=== PATIENT | female | born 1960 | race Caucasian/White ===

== ENCOUNTER 2022-04-05 08:36 | Outpatient (CLI) | payer OTHER, SELFPAY ==
--- NOTE | 2022-04-05 | ECG_ITS ---
Measurements Intervals [place] Rate: 61 P: 35 IA: 144 QRS: -35 QRSD: 104 T: 50 QT: 433 QTc: 436 Interpretive Statements SINUS RHYTHM LEFT AXIS DEVIATION INCOMPLETE RIGHT BUNDLE BRANCH BLOCK BORDERLINE ECG NO PREVIOUS ECG AVAILABLE FOR COMPARISON Electronically Signed On 04-05-2022 14:34:43 CDT by Jeremy Gabriel M.D.
--- NOTE | ~2022-04-05 | CT_ITS ---
EXAMINATION: CT LE RT wo con DATE: 04/05/2022 09:26 INDICATION: Unilateral primary osteoarthritis of the right knee TECHNIQUE: High resolution computed tomography (CT) of the right leg from the hip through the ankle w as performed without intravenous contrast. Additional sagittal and coronal reconstructions were perfo rmed. Automated exposure control and iterative reconstruction technique were employed. The dose-lengt h product was 1565.73 mGy-cm. COMPARISON: Right knee radiographs dated 02/24/2022 FINDINGS: Bone alignment is normal from the hip through the ankle. No fracture. Polyarticular osteoarthritis. T here is mild to moderate joint space narrowing at the medial compartment of the right knee which unde restimates the degree of joint space narrowing as seen on the prior weightbearing radiographs at [facility] h time it appeared moderate to severe likely due to absence weightbearing on the CT images. There is subarticular eburnation and moderate-sized marginal osteophytes at the medial compartment. Small ninoska inal osteophytes at the lateral and patellofemoral compartments. Loose osteochondral body at the inte rcondylar notch along the lateral margin of the anterior weightbearing medial femoral condyle. No rig ht knee joint effusion. Moderate-sized Ramirez's cyst at the right popliteal fossa measuring 6 similar craniocaudally and 2.7 x 1.8 cm maximal transaxial dimensions. Mild osteoarthritis at the right hip, ankle and subtalar joints. Soft tissues are unremarkable. No pathologically enlarged lymphadenopathy at the right groin are visualized right hemipelvis. Small enthesophytes at the calcaneal insertion of the distal Achilles tendon and at the patellar insertion of the distal quadriceps tendon. IMPRESSION: 1. Moderate to severe medial compartment predominant tricompartmental osteoarthritis at the right kne e. 2. Moderate-sized Ramirez's cyst. Reviewed, dictated and finalized at location B. IMPRESSION: 1. Moderate to severe medial compartment predominant tricompartmental osteoarth ritis at the right knee. 2. Moderate-sized Ramirez's cyst.
[2022-04-05 10:44] LABS: Hematocrit 43.3 % (37.0-47.0); Hemoglobin 14.1 g/dL (12.0-15.0)
[2022-04-05 10:56] LABS: Urine Cotinine NEGATIVE
[2022-04-05 11:32] LABS: Albumin Level 4.1 g/dL (3.5-5.1); Estimated Glomerular Filt Rate > 60; Glucose 105 mg/dL (65-110)
[2022-04-05 12:19] LABS: Hemoglobin A1C 5.4 % (<5.7)
== END 2022-04-05 08:37 | disposition home or self-care (01) ==
PROVIDERS: PCP Nurse Practitioner Family; Visit Provider Orthopaedic Surgery
DX: M17.11 Unilateral primary osteoarthritis, right knee (principal); Z01.818 Encounter for other preprocedural examination; M25.461 Effusion, right knee; I45.10 Unspecified right bundle-branch block
CPT/HCPCS: 73700; 80307; 82040; 82565; 82947; 83036; 85014; 85018; 93005

== ENCOUNTER → 2022-07-02 13:18 | Outpatient (CLI) | payer OTHER, SELFPAY ==
--- NOTE | ~2022-07-02 | CT_ITS ---
EXAMINATION: CT abdomen pelvis wo/w con DATE: 07/02/2022 14:06 INDICATION: Microscopic hematuria. TECHNIQUE: Computed tomography (CT) of the abdomen and pelvis was performed without and with intraven ous contrast using a total of 130 mL Omnipaque-350 intravenous contrast with a double-bolus technique for simultaneous opacification of the renal parenchyma and renal collecting system. Automated exposu re control and iterative reconstruction technique were employed. The dose-length product was 2046.40 mGy-cm. COMPARISON: None FINDINGS: The visualized portions of the lung bases demonstrate mild atelectasis. There is a 4 mm nodule in lef t lower lobe, likely benign. No pleural effusion. There is is normal. No pericardial effusion. The li david and spleen are normal. There are gallstones in the gallbladder, which is normal in size. The panc reas, adrenal glands, and kidneys are normal. There is no urolithiasis. The ureters are well opacifie d and are normal. The bladder is normal. There are no dilated loops of bowel. The appendix is normal. There are no pathologically enlarged lymph nodes. There is no free intraperitoneal fluid. There is s evere lumbar spondylosis. IMPRESSION: 1. No etiology for hematuria. Reviewed, dictated and finalized at location A.
[2022-07-02 13:41] LABS: Estimated Glomerular Filt Rate > 60
== END ==
PROVIDERS: PCP Nurse Practitioner Family; Visit Provider Urology
DX: R31.29 Other microscopic hematuria (principal)
CPT/HCPCS: 74178; Q9967

== ENCOUNTER 2022-07-07 11:21 | Outpatient (CLI) | payer OTHER, SELFPAY ==
[2022-07-07 12:56] LABS: Basophils Percent Auto 0.7 % (0.2-1.2); Eosinophils Absolute Auto 0.1 K/mm3 (0-0.3); Eosinophils Percent Auto 1.7 % (0-4.4); Hematocrit 44.8 % (37.0-47.0); Hemoglobin 14.8 g/dL (12.0-15.0); Immature Granulocyte Absolute 0.02 K/mm3 (0.00-0.031); Immature Granulocyte Percent A 0.3 % (0-0.5); Lymphocytes Absolute Auto 2.59 K/mm3 (0.9-3.2); Lymphocytes Percent Auto 44.6 % (18.3-44.2); Mean Corpuscular Hemoglobin 29.6 pg (26-34); Mean Corpuscular Volume 89.6 fl (80-100); Mean Platelet Volume 9.1 fl (7.4-10.4); Monocytes Absolute Auto 0.4 K/mm3 (0.1-0.6); Monocytes Percent Auto 7.6 % (2.6-8.5); Neutrophils Absolute Auto 2.6 K/mm3 (1.3-6.7); Neutrophils Percent Auto 45.1 % (45.5-73.1); Platelet Count Result 247 k/mm3 (150-375); White Blood Count 5.8 K/mm3 (4.5-10.0)
[2022-07-07 13:14] LABS: Urine Cotinine NEGATIVE
[2022-07-07 14:08] LABS: Hemoglobin A1C 5.2 % (<5.7)
[2022-07-07 16:37] LABS: Albumin Level 4.6 g/dL (3.5-5.1); Glucose 98 mg/dL (65-110)
== END 2022-07-07 11:22 | disposition home or self-care (01) ==
LOC: ANHSURGERY 11:26
PROVIDERS: PCP Nurse Practitioner Family; Visit Provider Orthopaedic Surgery
DX: M17.11 Unilateral primary osteoarthritis, right knee (principal); Z01.818 Encounter for other preprocedural examination
CPT/HCPCS: 80307; 82040; 82947; 83036; 85025; 87081

== ENCOUNTER 2022-08-03 01:25 | Day surgery (SDC) | payer OTHER, SELFPAY ==
[2022-07-07 11:53] VITALS: BMI 33.5
--- NOTE | 2022-07-07 12:17 | PC.NURSE ---
Report to the Outpatient Waiting Room, entrance under the green pavilion located off [facility], at time _0600 on date ___08/03/22____. OR Time: ___729 . Time changes happen often and if your time is changed the preop area will call you the afternoon before. - You and your visitor will be asked to self-screen and do not enter if you have any COVID symptoms. - Only one visitor and NO children visitors are allowed at this time. - The patient visitor is requested to leave or wait in car when not with patient due to restrictions. - A mask is required within the hospital. Patients may have clear liquids (water, carbonated beverages, clear teas, apple juice) until 3 hours prior to surgery with a maximum of 20 ounces. - No food from midnight until time of surgery - Infants may have breast milk until 4 hours before surgery, formula 6 hours prior to surgery. - Children will be allowed to drink immediately following surgery. If applicable, please bring a bottle or sippy cup to assist with drinking. Juice, water, soda, and popsicles are readily available. For infants on formula, please bring formula the day of surgery. Pacifiers are allowed. Take the following medications with a SIP of water the morning of surgery: ___INHALERS,LEVOTHYROXINE Medications to discontinue per physician ALL VITAMINS AND SUPPLEMENTS 3 DAYS PRE OP, Date to take last dose___07/30/22 Please no make-up, nail slovak, hairspray, perfume, deodorant, or body powder the day of surgery. No jewelry (including any body piercings) or valuables the day of surgery, leave them at home. Please take a shower or bath the night before, or the morning of, surgery with an antibacterial soap. Wear comfortable, loose fitting clothing. Children are encouraged to wear pajamas. - Jewelry must be removed prior to entering the operating room. Rings and piercings that are not removed may be cut off. - The hospital will not accept responsibility for valuables. - Please leave all valuables, including medications, at home the day of surgery. If you are going home after surgery, a licensed van driver helper must drive you home. - NO public transportation without another adult. - We recommend that an adult stay with you for 24 hours following discharge. - We also recommend that you do not drive, make important decision, drink alcoholic beverages, or take any drugs that were not prescribed by your health care provider for at least 24 hours after your discharge time. For Pediatric surgeries, we recommend two adults accompany the child home (only one inside the building at this time). Follow any additional instructions given to you from your surgeon. If you or anyone in your household have experienced Covid symptoms in the past week, please notify your surgeon or the nurse liaison at the phone number below for possible testing. VERBAL AND WRITTEN instructions given to __PATIENT and asked if any additional questions and then verbalized understanding. Patient advised to call surgeon office or pre surgery nurse liaison [phone] if any additional questions.
[2022-07-07 12:31] VITALS: BP 125/82; PULSE 56; RESP 18; TEMP 36.6; O2SAT 100
--- NOTE | 2022-08-02 13:33 | WPDANESEPPF ---
Anes - Initial Pre Proc Eval Procedure: Operation Date: 08/03/22 07:30 Proposed Procedures p Right Custom Total Knee Arthroplasty - Juan Ortiz MD Date/Time: 08/02/22 13:33 Surgeon: Juan Ortiz MD Pre Op Diagnosis: primary OA right knee Patient Data Age: 61 Gender: F Height: 1.68 m Weight: 94.3 kg Last Vital Signs Temp 36.6 C 07/07/22 12:31 Pulse 56 L 07/07/22 12:31 Resp 18 07/07/22 12:31 BP 125/82 07/07/22 12:31 Pulse Ox 100 07/07/22 12:31 O2 Del Method Room Air 07/07/22 12:31 Allergies Allergy/AdvReac Type Severity Reaction Status Date / Time chocolate flavor Allergy Unknown THROAT Verified 08/03/22 06:22 SWELLING corn Allergy Unknown ABD Verified 08/03/22 06:22 BLOATING grass pollen Allergy Unknown Hives Verified 08/03/22 06:22 mold Allergy Unknown Unknown Verified 08/03/22 06:22 pollen extracts Allergy Unknown unknown Verified 08/03/22 06:22 wheat Allergy Unknown unknown Verified 08/03/22 06:22 Home Medications Medication Instructions Recorded Confirmed Type albuterol sulfate 90 mcg/actuation 1 puff inhalation Q4H PRN 02/02/22 08/03/22 History aerosol inhaler Shortness Of Breath atorvastatin 10 mg tablet 10 mg PO DAILY 02/02/22 08/03/22 History cetirizine 10 mg tablet (Zyrtec) 10 mg PO DAILY 02/02/22 08/03/22 History famotidine 20 mg tablet 20 mg PO DAILY 02/02/22 08/03/22 History fluticasone propionate 50 1 spray intranasal DAILY 02/02/22 08/03/22 History mcg/actuation nasal spray,suspension (Allergy Relief (fluticasone)) levothyroxine 100 mcg capsule 100 mcg PO DAILY 02/02/22 08/03/22 History montelukast 10 mg tablet 10 mg PO DAILY 02/02/22 08/03/22 History omega-3 fatty acids-fish oil 360 1 cap PO DAILY 02/02/22 08/03/22 History mg-1,200 mg capsule (Fish Oil) trazodone 50 mg tablet 25 mg PO QHS PRN Pain 04/19/22 10/18/22 History acetaminophen 500 mg tablet 1,000 mg PO Q6H PRN Pain 07/07/22 08/03/22 History fluticasone 232mcg-salmeterol 1 inh inhalation BID 07/07/22 08/03/22 History 14mcg/actuation breath act,powder sensor (AirDu[employer] Digihaler) glucosam 750 mg-chondroi 100 1 tablet PO DAILY 07/07/22 08/03/22 History mg-hyalur 1.65 mg-CF borate 108 mg tablet ([employer]) soy isoflavone-black cohosh 1 cap PO DAILY 07/07/22 08/03/22 History root-magnolia bark 155 mg capsule ([employer]) tumeric 100 mg-noemi 150 mg-olive 1 cap PO DAILY 07/07/22 08/03/22 History 50 mg-oreg 150 mg-caprylate capsule Patient hx anesthesia problems: post op nausea/vomiting Family hx anesthesia problems: none Results Review: All pre-operative results and documents have been reviewed as part of the pre-operative evaluation. [facility] Past Medical History Medical History (Updated 08/02/22 @ 13:34 by Napoleon Farrar DO) Arthritis of right knee Asthma GERD (gastroesophageal reflux disease) Hyperlipidemia Hypothyroidism PONV (postoperative nausea and vomiting) Surgical History Surgical History History of bunionectomy Right 2009 Left 2021 History of hysterectomy (~1998) History of left knee replacement (~2016) History of lung surgery (~1970) History of thyroid surgery (~2014) Right Family History Family History Mother Lung cancer COPD (chronic obstructive pulmonary disease) Father Hypertension Grandparent Diabetes mellitus Social History Social History Smoking status: Never smoker Additional smoking assessment comments: DENIES ANY FORM OFTOBACCO USE Alcohol intake: never Substance use: never Living arrangements: with family Spiritual care concerns: No Anes - Eval Final PreProcedure Day of Procedure 08/02/22 13:33 Patient weight: obese Heart: regular rate and rhythm Lungs: clear to auscultation
[2022-08-03] VITALS (13 sets, daily range): BP systolic 111–145; BP diastolic 59–72; PULSE 49–79; RESP 14–18; TEMP 36.5–37.6; O2SAT 92–97; BMI 33.5
--- NOTE | ~2022-08-03 | XR_ITS ---
EXAMINATION: XR knee RT 2V DATE: 08/03/2022 10:49 INDICATION: Postoperative evaluation following right knee arthroplasty. TECHNIQUE: Anteroposterior and lateral views of the right knee were obtained. COMPARISON: CT dated 04/05/2022 and radiographs dated 02/24/2022 FINDINGS: Right total knee arthroplasty with patellar resurfacing appears well seated and in near anatomic alig nment. No fractures identified. Expected postoperative subcutaneous and intra-articular gas. IMPRESSION: 1. Right total knee arthroplasty, negative for postoperative purposes. Reviewed, dictated and finalized at location A.
[2022-08-03] MEDS: ACETAMINOPHEN 500 MG TABLET 1000 MG PO (06:27)
[2022-08-03] MEDS: LACTATED RINGERS 1,000 ML 30 ML IV CONT ×2 (06:35→10:40)
[2022-08-03] MEDS: TRANEXAMIC ACID 1,000MG/ISO100 1,000 MG/100 ML BAG 200 MG IVPB (07:00)
--- NOTE | 2022-08-03 07:26 | WPDHPUPDATE1 ---
History and Physical Update Update Date/Time: 08/03/22 07:26 History and Physical has been reviewed, including an updated exam of the patient. There are NO changes in the patient's condition. Risks, benefits, and alternatives have been discussed and questions answered. Patient agrees to proceed with procedure.
[2022-08-03] MEDS: ceFAZolin 2 GM/D5W 50 ML 2 GM/50 ML BAG IVPB ×3 (07:34→23:09)
--- NOTE | 2022-08-03 07:36 | WPDANESPNB ---
Anes - Peripheral Nerve Block Date/Time: 08/03/22 07:36 I have discussed with the patient/family/POA the placement of a peripheral nerve block for post-operative pain management, including associated risks, benefits, complications, and side effects. Alternative methods of post-operative analgesia were detailed. Questions were solicited and answers provided to the satisfaction of the patient/family/POA. Time-Out: A pre-procedural Time-Out was completed immediately before starting the procedure and confirmed: Patient Identification, Site, Procedure, Patient Position and the Availability of Requisite Equipment. Clinical Indications: Acute post-operative pain management requested by the operative surgeon. Nerve Block Insertion Note Anes-nerve block: adductor canal right Patient position: supine Skin prep: chlorhexidine Needle: 22 gauge, stimulating, insulated echogenic needle. Needle length: 80 mm Technique: ultrasound Injectate: bupivacaine 0.5% with epi 5 mcg/ml (30cc - no epi) Observations: tolerated well Complications: none Procedure start time:: 728 Procedure end time:: 731
[2022-08-03] MEDS: GENTAMICIN BONE CEMENT REFOBACIN 1 EACH TOPICAL (09:48)
--- NOTE | 2022-08-03 11:07 | P.OP_ITS ---
Procedure Note - Detailed Date of Procedure 08/03/22 Pre-op Diagnosis primary OA right knee Post-op Diagnosis Same Procedure Performed Total knee arthroplasty, right. Surgeon Juan Ortiz MD Radiator Repairer Beatrice Mukherjee PA-C Anesthesia General and Regional (Subsartorial block.) Findings Custom TKA. No releases required. Description of Procedure Preoperative antibiotics were given. The limb was prepped and draped in the usual sterile fashion with a well-padded tourniquet high on the thigh. The limb was exsanguinated and the tourniquet inflated to 300 mmHg. A longitudinal incision was created just medial to the patella. A trivector approach to the knee was performed. Arthrotomy was taken down through the joint capsule. No significant releases were initially taken. The femur was exposed and the F1 jig was applied. The coring tool was used to remove the cartilage for the F2 jig to sit flush with the bone. The jig was pinned and the distal cut carefully taken. Caliper measurements confirmed appropriate bony resections according to the preoperative templated plan. The F4 cutting jig for the femur was applied, at the standard rotation. The AP and anterior chamfer cuts were taken. The F5 jig was applied and the posterior chamfer cuts were taken. The tibia was prepared using the T1 jig, after removing cartilage for the jig contact points. Proper alignment was checked with the alignment pradeep. The tibia was cut using the T1u guide. Gap balancing was performed. Gap measurements were taken and the knee was trialed. Excellent alignment and soft tissue balancing was confirmed. The posterior cruciate ligament was recessed along the proximal tibia. The patella was cut for resurfacing. Three lug holes were drilled. Meniscal remnants were removed. The trial components were assembled. Excellent range of motion and proper soft tissue balancing were confirmed throughout the full range of motion. Patellar tracking was excellent. The knee was copiously irrigated periodically throughout the procedure. The real implants were cemented into position. Excess cement was carefully removed. The wound was closed in layers with interrupted #1 Vicryl suture, 2-0 strata fix suture, 0 strata fix suture, 2-0 strata fix suture. Steri-Strips placed on the skin with the knee flexed. Sterile bulky dressing applied. The patient was brought to the recovery room in stable condition. There were no complications. Physician veterinary technician assistant, Beatrice Mukherjee PA-C, required for surgery; including patient positioning, draping, tissue retraction, maintaining instrument position, cement removal, wound closure, and dressing placement. Implants Conformis Custom total knee arthroplasty. Cemented. Cruciate retaining. 7C insert. 32 mm round patella. Estimated Blood Loss -100.0 Drains No Complications No immediate complications Condition Stable Disposition PACU [facility] Billing Surgery - Charge Forward: Surgery Billing
[2022-08-03] MEDS: fentaNYL CITRATE INJ (*CRX) 100 MCG/2 ML VIAL 25 MCG IV PUSH (11:18)
[2022-08-03] MEDS: SODIUM CHLORIDE 0.9% IV 1,000 ML 125 ML IV CONT (12:15)
--- NOTE | 2022-08-03 12:35 | ADMGEN ---
This patient, Starr Wahl, was admitted to [facility] Surgery-1. Patient/family oriented to hospital policies and general routines including ID bracelet, bed and alarms, visiting hours, pain management, procedures, bathroom and other care routines, personal items, smoking policy, room service/diet, and visiting hours. Information on how to activate the Rapid Response Team has been discussed. Patient/Family are encouraged to report perceived risks to care and to ask questions if they do not understand what they are told or what they should do.
[2022-08-03] MEDS: ONDANSETRON INJ 4 MG/2 ML VIAL IV PUSH (13:00)
--- NOTE | 2022-08-03 15:25 | ADMGEN ---
This patient, Starr Wahl, was admitted to Medical Room 248-. Patient/family oriented to hospital policies and general routines including ID bracelet, bed and alarms, visiting hours, pain management, procedures, bathroom and other care routines, personal items, smoking policy, room service/diet, and visiting hours. Information on how to activate the Rapid Response Team has been discussed. Patient/Family are encouraged to report perceived risks to care and to ask questions if they do not understand what they are told or what they should do.
[2022-08-03] MEDS: ASPIRIN 81 MG ENTERIC TABLET PO (16:34)
[2022-08-03] MEDS: SENNA/DOCUSATE SODIUM TABLET 2 TAB PO (16:34)
[2022-08-03] MEDS: FLUTICASONE/SALMETEROL 230-21 MCG INHALER 1 PUFF 2 PUFF INHALATION (21:37)
[2022-08-04 00:08] VITALS: BP 109/56; PULSE 52; RESP 18; TEMP 36.1; O2SAT 98
[2022-08-04 05:20] VITALS: BP 108/61; PULSE 52; RESP 18; TEMP 35.9; O2SAT 95
[2022-08-04] MEDS: LEVOTHYROXINE SODIUM 100 MCG TABLET PO (05:21)
[2022-08-04] MEDS: ceFAZolin 2 GM/D5W 50 ML 2 GM/50 ML BAG IVPB (05:21)
[2022-08-04 05:28] VITALS: BP 108/61; PULSE 52; RESP 18; TEMP 35.9; O2SAT 95
[2022-08-04 05:46] LABS: Basophils Percent Auto 0.2 % (0.2-1.2); Eosinophils Absolute Auto 0.1 K/mm3 (0-0.3); Eosinophils Percent Auto 0.5 % (0-4.4); Hemoglobin 12.2 g/dL (12.0-15.0); Immature Granulocyte Absolute 0.06 K/mm3 (0.00-0.031); Immature Granulocyte Percent A 0.6 % (0-0.5); Lymphocytes Absolute Auto 2.31 K/mm3 (0.9-3.2); Mean Corpuscular HGB Conc 33.9 g/dl (32-36); Mean Corpuscular Hemoglobin 30.4 pg (26-34); Mean Corpuscular Volume 89.8 fl (80-100); Mean Platelet Volume 9.2 fl (7.4-10.4); Monocytes Absolute Auto 0.9 K/mm3 (0.1-0.6); Monocytes Percent Auto 8.4 % (2.6-8.5); Neutrophils Absolute Auto 7.2 K/mm3 (1.3-6.7); Neutrophils Percent Auto 68.3 % (45.5-73.1); Platelet Count Result 211 k/mm3 (150-375); Red Blood Count 4.01 M/mm3 (4.2-5.4); Red Cell Distribution Width 13.1 % (11.5-14.5); White Blood Count 10.5 K/mm3 (4.5-10.0)
[2022-08-04 06:06] LABS: Anion Gap 8 mmol/L (8-16); Blood Urea Nitrogen 16 mg/dL (7-17); Calcium 8.4 mg/dL (8.4-10.2); Carbon Dioxide 25 mmol/L (22-30); Chloride 102 mmol/L (98-107); Estimated CRCL calculation 76 ml/min; Estimated Glomerular Filt Rate > 60; Glucose 117 mg/dL (65-110); Potassium 3.8 mmol/L (3.4-5.0); Sodium 135 mmol/L (137-145)
--- NOTE | 2022-08-04 07:53 | WPDANESPN ---
Anes - Prog Note Post-Op Date/Time: 08/04/22 07:53 Cardiovascular status: normal Respiratory status: normal Airway patency: baseline Mental status: baseline Post-Op hydration status: normal Vital Signs: Last Vital Signs Temp 35.9 C L 08/04/22 05:28 Pulse 52 L 08/04/22 05:28 Resp 18 08/04/22 05:28 BP 108/61 08/04/22 05:28 Pulse Ox 95 08/04/22 05:28 O2 Del Method Room Air 08/03/22 20:00 O2 Flow Rate 2 08/03/22 11:30 Pain Score (VAS): 12/24 I/O: Intake & Output 08/03/22 08/03/22 08/04/22 15:59 23:59 07:59 Intake Total 550 1300 440 Output Total 200 800 600 Balance 350 500 -160 Laboratory Tests 08/04/22 05:00 08/04/22 05:00 08/03/22 08/04/22 08/04/22 06:39 05:00 05:00 WBC 10.5 H RBC 4.01 L Hgb 12.2 Hct 36.0 L MCV 89.8 MCH 30.4 MCHC 33.9 RDW 13.1 Plt Count 211 MPV 9.2 Immature Gran % (Auto) 0.6 H Neut % (Auto) 68.3 Lymph % (Auto) 22.0 [place] % (Auto) 8.4 Eos % (Auto) 0.5 Baso % (Auto) 0.2 Lymph # (Auto) 2.31 [place] # (Auto) 0.9 H Eos # (Auto) 0.1 Baso # (Auto) 0.0 Abs Immat Gran (auto) 0.06 H Absolute Neuts (auto) 7.2 H Absolute Nucleated RBC 0.0 Nucleated RBC % 0.0 Sodium 135 L Potassium 3.8 Chloride 102 Carbon Dioxide 25 Anion Gap 8 BUN 16 Creatinine 0.80 Estim Creat Clear Calc 76 Estimated GFR > 60 Glucose 117 H Calcium 8.4 Blood Type B Positive Antibody Screen Positive Antibody Identification Inconclusive Antigen Identification Not Reportable SUNNY, IgG Interpret Not Performed SUNNY, Poly Interpret Negative SUNNY, Complement Interp Not Performed Post-procedural complaints: nausea (Which was treated in PACU, no compliants of nausea this morning) Patient Feedback: Patient satisfied with anesthetic care.
--- NOTE | 2022-08-04 08:12 | PM.DS ---
DS: Admitting Diagnosis Discharge Date 08/04/22 Admitting Diagnosis OA knee Right DS: Discharge Diagnosis Discharge Diagnosis (1) Status post total right knee replacement: Code(s): Z96.651 - Presence of right artificial knee joint Status: Acute Plan Postop day 1: Right total knee arthroplasty. Patient tolerated procedure well. No complications. Pain manageable with pain medication. No numbness or tingling. We had a lengthy discussion regarding postoperative wound care, limitations, expectations, and exercises. Patient shows good understanding. She has had initial physical therapy and is tolerating it well. DVT prophylaxis: 81 mg baby aspirin b.i.d. for 14 days. Pain medication: Percocet. Prednisone. Ibuprofen. Patient has followup appointment with Dr. Ortiz in 3 weeks. DS: Summary Hospital Course Reason for hospitalization: Total knee arthroplasty Hospital Course: Patient tolerated procedure well. Has had initial PT/OT. No complications. Pain well managed. Status at Discharge Functional status at discharge: uses cane/walker Overall status at discharge: patient is progressing back to baseline Time Spent with Patient Time attestation: Total time spent providing and/or coordinating discharge services: Exam Narrative: Overweight 61 y/o female. Resting comfortably in chair. No acute distress. A&O x3. Wearing compression socks bilaterally. Dressing intact with no drainage. No swelling. No ecchymosis. No erythema. No hematoma. Good early range of motion. Calf nontender. Neurologic status intact. No varicosities. Distal pulses palpable. DS: Data Data Completed and Pending Labs on day of discharge: Labs from last 24 hours 08/04/22 08/04/22 08/03/22 05:00 05:00 06:39 WBC 10.5 H RBC 4.01 L Hgb 12.2 Hct 36.0 L MCV 89.8 MCH 30.4 MCHC 33.9 RDW 13.1 Plt Count 211 MPV 9.2 Immature Gran % (Auto) 0.6 H Neut % (Auto) 68.3 Lymph % (Auto) 22.0 [place] % (Auto) 8.4 Eos % (Auto) 0.5 Baso % (Auto) 0.2 Lymph # (Auto) 2.31 [place] # (Auto) 0.9 H Eos # (Auto) 0.1 Baso # (Auto) 0.0 Abs Immat Gran (auto) 0.06 H Absolute Neuts (auto) 7.2 H Absolute Nucleated RBC 0.0 Nucleated RBC % 0.0 Sodium 135 L Potassium 3.8 Chloride 102 Carbon Dioxide 25 Anion Gap 8 BUN 16 Creatinine 0.80 Estim Creat Clear Calc 76 Estimated GFR > 60 Glucose 117 H Calcium 8.4 Blood Type B Positive Antibody Screen Positive Antibody Identification Inconclusive Antigen Identification Not Reportable SUNNY, IgG Interpret Not Performed SUNNY, Poly Interpret Negative SUNNY, Complement Interp Not Performed Discharge Plan Discharge Patient Disposition: Home, Self-Care Discharge Instructions: See green instruction sheets Stand Alone Forms: General Discharge Instructions Follow-up/Referrals: Beatrice Mukherjee PA [Physician Disassembler] - Discharge Medications: New aspirin 81 mg tablet,delayed release (DR/EC) 81 mg PO BID 14 Days Qty: 28 0RF prednisone 5 mg tablet 5 mg PO DAILY 21 Days Qty: 21 0RF oxycodone-acetaminophen 5-325 mg tablet 1 - 2 tablet PO Q4-6H MDD 6 PRN (Reason: pain) Qty: 30 0RF Continued atorvastatin 10 mg tablet 10 mg PO DAILY albuterol sulfate 90 mcg/actuation HFA aerosol inhaler 1 puff inhalation Q4H PRN (Reason: Shortness Of Breath) cetirizine [Zyrtec] 10 mg tablet 10 mg PO DAILY montelukast 10 mg tablet 10 mg PO DAILY omega-3 fatty acids-fish oil [Fish Oil] 360-1,200 mg capsule 1 cap PO DAILY famotidine 20 mg tablet 20 mg PO DAILY levothyroxine 100 mcg capsule 100 mcg PO DAILY fluticasone propionate [Allergy Relief (fluticasone)] 50 mcg/actuation spray,suspension 1 spray intranasal DAILY Rx Instructions: administer into each nostril trazodone 50 mg tablet 25 mg PO QHS
[2022-08-04] MEDS: FAMOTIDINE 20 MG TABLET PO (08:45)
[2022-08-04] MEDS: MONTELUKAST SODIUM 10 MG TABLET PO (08:45)
[2022-08-04] MEDS: predniSONE 5 MG TABLET PO (08:45)
[2022-08-04] MEDS: LORATADINE 10 MG TABLET PO (08:45)
[2022-08-04] MEDS: polyethylene glycoL 3350 17 GM POWD.PACK PO (08:45)
[2022-08-04] MEDS: ATORVASTATIN 10 MG TABLET PO (08:45)
[2022-08-04] MEDS: ASPIRIN 81 MG ENTERIC TABLET PO (08:45)
[2022-08-04] MEDS: SENNA/DOCUSATE SODIUM TABLET 2 TAB PO (08:45)
[2022-08-04] MEDS: FLUTICASONE/SALMETEROL 230-21 MCG INHALER 1 PUFF 2 PUFF INHALATION (09:18)
== END 2022-08-04 10:10 | disposition home or self-care (01) ==
LOC: ANHSURGERY 09:32 → ANHSUROVER 11:45 → ANH2MED 15:13
PROVIDERS: Physician Assistant Surgical; PCP Nurse Practitioner Family; Visit Provider Orthopaedic Surgery
PROC: (CPT 27447; principal; 2022-08-03 07:30)
DX: M17.11 Unilateral primary osteoarthritis, right knee (principal); G89.18 Other acute postprocedural pain; E78.5 Hyperlipidemia, unspecified; J45.909 Unspecified asthma, uncomplicated; E03.9 Hypothyroidism, unspecified; Z79.51 Long term (current) use of inhaled steroids; E66.9 Obesity, unspecified; Z68.33 Body mass index [BMI] 33.0-33.9, adult
CPT/HCPCS: 27447; 64447; 36415; 73560; 80048; 80307; 82040; 82947; 83036; 85025; 86850; 86880; 86900; 86901; 86902; 87081; 94640; 97110; 97116; 97161; 97165; 97530; 97535; A9270; C1713; C1776; J0131; J0171; J0330; J0690; J1100; J1885; J2250; J2270; J2405; J2704; J2795; J3010; J7030; J7120; J7512

== ENCOUNTER → 2022-09-29 14:43 | Outpatient (CLI) | payer OTHER, SELFPAY ==
--- NOTE | ~2022-09-29 | XR_ITS ---
Left thumb Technique: PA, oblique, and lateral views of the thumb were obtained. Clinical History: Pain Findings: No acute fracture or dislocation is seen. Osseous alignment is anatomic. Joint spaces are p reserved. Soft tissues are unremarkable. Impression: No significant abnormality seen. 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
== END ==
PROVIDERS: PCP Family Medicine; Visit Provider Nurse Practitioner Family
DX: M79.645 Pain in left finger(s) (principal)
CPT/HCPCS: 73140

== ENCOUNTER 2022-10-28 10:24 | Emergency (ER) | payer BC, SELFPAY ==
--- NOTE | ~2022-10-28 | XR_ITS ---
EXAMINATION: XR chest 2V DATE: 10/28/2022 11:00 INDICATION: Cough. TECHNIQUE: Frontal and lateral views of the chest were obtained. COMPARISON: CT abdomen and pelvis 07/02/2022 FINDINGS: There are airspace opacities in the perihilar regions. No pleural effusion or pneumothorax. The heart size is normal. IMPRESSION: 1. Airspace opacities in the perihilar regions, consistent with atelectasis versus pneumonia versus m ild pulmonary edema. Reviewed, dictated and finalized at location A. F MECHANIC IMPRESSION: 1. Airspace opacities in the perihilar regions, consistent with atelectasis david fred pneumonia versus mild pulmonary edema.
[2022-10-28 10:35] VITALS: BP 135/81; PULSE 82; RESP 16; TEMP 36.5; O2SAT 99
--- NOTE | 2022-10-28 10:40 | ED.URI ---
HPI - URI/Sore Throat General Chief Complaint: Upper Respiratory Infection Stated Complaint: Cough Time Seen by Provider: 10/28/22 10:40 Source: patient, RN notes reviewed and old records reviewed Mode of arrival: ambulatory Limitations: no limitations History of Present Illness HPI Narrative: 62-year-old female presents to the [facility] with a cough for for 5 days. Was told to come to the [facility] for a COVID and flu test. Told her that they would not see year if she was positive. Has a history of pneumonia. Denies any chest pain or shortness of breath. Denies fevers. Related Data Home Medications Medication Instructions Recorded Confirmed albuterol sulfate 90 mcg/actuation 1 puff inhalation Q4H PRN 02/02/22 10/28/22 aerosol inhaler Shortness Of Breath atorvastatin 10 mg tablet 10 mg PO DAILY 02/02/22 10/28/22 cetirizine 10 mg tablet (Zyrtec) 10 mg PO DAILY 02/02/22 10/28/22 fluticasone propionate 50 1 spray intranasal DAILY 02/02/22 10/28/22 mcg/actuation nasal spray,suspension (Allergy Relief (fluticasone)) levothyroxine 100 mcg capsule 100 mcg PO DAILY 02/02/22 10/28/22 montelukast 10 mg tablet 10 mg PO DAILY 02/02/22 10/28/22 trazodone 50 mg tablet 25 mg PO QHS PRN Pain 02/02/22 10/28/22 glucosam 750 mg-chondroi 100 1 tablet PO DAILY 07/07/22 10/28/22 mg-hyalur 1.65 mg-CF borate 108 mg tablet ([facility]) soy isoflavone-black cohosh 1 cap PO DAILY 07/07/22 10/28/22 root-magnolia bark 155 mg capsule ([facility]) Allergies Allergy/AdvReac Type Severity Reaction Status Date / Time chocolate flavor Allergy Unknown THROAT Verified 10/28/22 10:47 SWELLING corn Allergy Unknown ABD Verified 10/28/22 10:47 BLOATING grass pollen Allergy Unknown Hives Verified 10/28/22 10:47 mold Allergy Unknown Unknown Verified 10/28/22 10:47 pollen extracts Allergy Unknown unknown Verified 10/28/22 10:47 wheat Allergy Unknown unknown Verified 10/28/22 10:47 Review of Systems Review of Systems: All systems reviewed & are unremarkable except as noted in HPI and below Constitutional: Constitutional: Reports no additional constitutional complaints Eyes: Eyes: Reports no additional eye complaints ENT: Reports system reviewed and no additional complaints, except as documented Cardiovascular: Cardiovascular: Reports no additional cardiovascular complaints, Denies chest pain and Denies dyspnea Respiratory: Respiratory: Reports as per HPI, Denies chest congestion, Reports cough, Denies dyspnea and Denies wheezing Gastrointestinal: Gastrointestinal: Reports no additional gastrointestinal complaints, Denies abdominal pain, Denies nausea and Denies vomiting Musculoskeletal: Musculoskeletal: Reports no additional musculoskeletal complaints Integumentary/Breasts: Skin/Breast: Reports system reviewed and no additional complaints, except as docu Neurologic: Reports system reviewed and no additional complaints, except as documented Psychiatric: Psychiatric: Reports no additional psychiatric complaints Allergic/Immunologic: Allergic/Immunologic: Reports no additional allergic/immunologic complaints PMFSH Past Medical History Medical History Anemia Arthritis of right knee Asthma Elevated fasting glucose Encounter to establish care GERD (gastroesophageal reflux disease) Hyperlipidemia Hyperlipidemia Hypothyroidism Pain of left thumb PONV (postoperative nausea and vomiting) Surgical History Surgical History History of bunionectomy Right 2009 Left 2021 History of hysterectomy (~1998) History of left knee replacement (~2016) History of lung surgery (~1970) History of right knee joint replacement (~08/03/22) History of thyroid surgery (~2014) Right Family History Family History Mother Lung cancer COPD (chronic obstructiv
== END 2022-10-28 11:40 | disposition home or self-care (01) ==
PROVIDERS: Emergency Provider Nurse Practitioner; PCP Family Medicine
DX: J18.9 Pneumonia, unspecified organism (principal); J45.909 Unspecified asthma, uncomplicated; K21.9 Gastro-esophageal reflux disease without esophagitis; E78.5 Hyperlipidemia, unspecified; E03.9 Hypothyroidism, unspecified; Z20.822 Contact with and (suspected) exposure to COVID-19
CPT/HCPCS: 71046; 87426; 87804; 99213; C9803; G0463

== ENCOUNTER 2023-07-28 08:22 | Emergency (ER) | payer BC, SELFPAY ==
[2023-07-28 08:30] VITALS: BP 119/73; PULSE 74; RESP 12; TEMP 36.9; O2SAT 97
--- NOTE | 2023-07-28 08:51 | ED.URI ---
HPI - URI/Sore Throat General Chief Complaint: Upper Respiratory Infection Stated Complaint: sore throat,sores in mouth Time Seen by Provider: 07/28/23 08:42 Source: patient and RN notes reviewed Mode of arrival: ambulatory Limitations: no limitations History of Present Illness HPI Narrative: Patient presents today with a 4 day history of cough, congestion, headache, and throat sores. She also reports some mild shortness of breath with exertion. She has been taking Tylenol for her headaches with mild relief. Currently rates her pain 2/10. She also reports some strep throat exposure from 1 of her grandchildren prior to onset of symptoms. History of asthma. Related Data Home Medications Medication Instructions Recorded Confirmed albuterol sulfate 90 mcg/actuation 1 puff inhalation Q4H PRN 02/02/22 07/28/23 aerosol inhaler Shortness Of Breath atorvastatin 10 mg tablet 10 mg PO DAILY 02/02/22 07/28/23 cetirizine 10 mg tablet (Zyrtec) 10 mg PO DAILY 02/02/22 07/28/23 fluticasone propionate 50 1 spray intranasal DAILY 02/02/22 07/28/23 mcg/actuation nasal spray,suspension (Allergy Relief (fluticasone)) trazodone 50 mg tablet 25 mg PO QHS PRN Pain 02/02/22 07/28/23 glucosam 750 mg-chondroi 100 1 tablet PO DAILY 07/07/22 07/28/23 mg-hyalur 1.65 mg-CF borate 108 mg tablet ([facility] [employer]) soy isoflavone-black cohosh 1 cap PO DAILY 07/07/22 07/28/23 root-magnolia bark 155 mg capsule (Estroven) fluticasone propionate 44 2 inh inhalation BID 04/01/23 07/28/23 mcg/actuation HFA aerosol inhaler (Flovent HFA) Allergies Allergy/AdvReac Type Severity Reaction Status Date / Time chocolate flavor Allergy Unknown THROAT Verified 07/28/23 08:29 SWELLING corn Allergy Unknown ABD Verified 07/28/23 08:29 BLOATING grass pollen Allergy Unknown Hives Verified 07/28/23 08:29 mold Allergy Unknown Unknown Verified 07/28/23 08:29 pollen extracts Allergy Unknown unknown Verified 07/28/23 08:29 wheat Allergy Unknown unknown Verified 07/28/23 08:29 Review of Systems Review of Systems: CONSTITUTIONAL: Denies body aches, fever, chills, or sweats. EYES: Denies visual changes, redness, or discharge. ENT: Denies rhinorrhea, or otalgia.+ mouth sores, congestion CARDIOVASCULAR: Denies chest pain, palpitations, or edema. RESPIRATORY: + cough, shortness of breath GASTROINTESTINAL: Denies abdominal pain, nausea, vomiting, or diarrhea. GENITOURINARY: Denies dysuria or hematuria. SKIN: Denies rash, itching, or wounds. MUSCULOSKELETAL: Denies back pain, joint pain, or myalgia. NEUROLOGIC: Denies numbness, tingling, or weakness.+ headache PSYCH: Denies depression or anxiety. [facility] Past Medical History Medical History Anemia Arthritis of right knee Asthma BMI 34.0-34.9,adult Breast cancer screening by mammogram normal mammogram 05/02/2023. Elevated fasting glucose Encounter to establish care GERD (gastroesophageal reflux disease) Hyperlipidemia Hyperlipidemia Hypothyroidism Pain of left thumb PONV (postoperative nausea and vomiting) Surgical History Surgical History History of bunionectomy Right 2009 Left 2021 History of hysterectomy (~1998) History of left knee replacement (~2016) History of lung surgery (~1970) History of right knee joint replacement (~08/03/22) History of thyroid surgery (~2014) Right Family History Family History Mother Lung cancer COPD (chronic obstructive pulmonary disease) Father Hypertension Grandparent Diabetes mellitus Son Asthma Other Diabetes mellitus Social History Social History Smoking status: Never smoker Additional smoking assessment comments: DENIES ANY FORM OFTOBACCO USE Alcohol intake: current
== END 2023-07-28 09:11 | disposition home or self-care (01) ==
PROVIDERS: Emergency Provider Nurse Practitioner; PCP Nurse Practitioner Family
DX: J02.0 Streptococcal pharyngitis (principal); D64.9 Anemia, unspecified; M17.11 Unilateral primary osteoarthritis, right knee; J45.909 Unspecified asthma, uncomplicated; K21.9 Gastro-esophageal reflux disease without esophagitis; E78.5 Hyperlipidemia, unspecified; E03.9 Hypothyroidism, unspecified; Z96.653 Presence of artificial knee joint, bilateral
CPT/HCPCS: 87880; 99213; G0463

== ENCOUNTER 2023-09-05 12:26 | Emergency (ER) | payer BC, SELFPAY ==
--- NOTE | 2023-09-05 12:30 | ED.URI ---
HPI - URI/Sore Throat General Chief Complaint: Upper Respiratory Infection Stated Complaint: Cough Time Seen by Provider: 09/05/23 12:55 Source: patient and RN notes reviewed Mode of arrival: ambulatory Limitations: no limitations History of Present Illness HPI Narrative: 63-year-old female presents with concern for cough, fatigue. Reports symptoms started on Tuesday. Reports she has run her grandchildren who were ill. Reports she has been taking dwwp-ezn-siqchsy cold medicine without relief. MD elicited complaint: cough Related Data Home Medications Medication Instructions Recorded Confirmed albuterol sulfate 90 mcg/actuation 1 puff inhalation Q4H PRN 02/02/22 08/03/23 aerosol inhaler Shortness Of Breath atorvastatin 10 mg tablet 10 mg PO DAILY 02/02/22 08/03/23 cetirizine 10 mg tablet (Zyrtec) 10 mg PO DAILY 02/02/22 08/03/23 fluticasone propionate 50 1 spray intranasal DAILY 02/02/22 08/03/23 mcg/actuation nasal spray,suspension (Allergy Relief (fluticasone)) trazodone 50 mg tablet 25 mg PO QHS PRN Pain 02/02/22 08/03/23 glucosam 750 mg-chondroi 100 1 tablet PO DAILY 07/07/22 08/03/23 mg-hyalur 1.65 mg-CF borate 108 mg tablet ([employer]) soy isoflavone-black cohosh 1 cap PO DAILY 07/07/22 08/03/23 root-magnolia bark 155 mg capsule (Estroven) fluticasone propionate 44 2 inh inhalation BID 04/01/23 08/03/23 mcg/actuation HFA aerosol inhaler (Flovent HFA) Allergies Allergy/AdvReac Type Severity Reaction Status Date / Time chocolate flavor Allergy Unknown THROAT Verified 09/05/23 12:36 SWELLING corn Allergy Unknown ABD Verified 09/05/23 12:36 BLOATING grass pollen Allergy Unknown Hives Verified 09/05/23 12:36 mold Allergy Unknown Unknown Verified 09/05/23 12:36 pollen extracts Allergy Unknown unknown Verified 09/05/23 12:36 wheat Allergy Unknown unknown Verified 09/05/23 12:36 Review of Systems Review of Systems: CONSTITUTIONAL: Reports malaise, fatigue EYES: Denies visual changes, redness, or discharge. ENT: Reports rhinorrhea, congestion. Denies sinus pain, otalgia and sore throat. CARDIOVASCULAR: Denies chest pain, palpitations, or edema. RESPIRATORY: Reports cough. Denies dyspnea. GASTROINTESTINAL: Denies abdominal pain, nausea, vomiting, diarrhea SKIN: Denies rash or itching. MUSCULOSKELETAL: Reports myalgia. NEUROLOGIC: Denies headache. All systems reviewed & are unremarkable except as noted in HPI and below PMFSH Past Medical History Medical History Anemia Arthritis of right knee Asthma BMI 34.0-34.9,adult Breast cancer screening by mammogram normal mammogram 05/02/2023. Elevated fasting glucose Encounter to establish care GERD (gastroesophageal reflux disease) Hyperlipidemia Hyperlipidemia Hypothyroidism Pain of left thumb PONV (postoperative nausea and vomiting) Surgical History Surgical History History of bunionectomy Right 2009 Left 2021 History of hysterectomy (~1998) History of left knee replacement (~2016) History of lung surgery (~1969) History of right knee joint replacement (~08/03/22) History of thyroid surgery (~2014) Right Family History Family History Mother Lung cancer COPD (chronic obstructive pulmonary disease) Father Hypertension Grandparent Diabetes mellitus Son Asthma Other Diabetes mellitus Social History Social History Smoking status: Never smoker Additional smoking assessment comments: DENIES ANY FORM OFTOBACCO USE Alcohol intake: current Drinks per week: 1 Substance use: never Lack of Transportation: No Lack of Food: Never True Current Housing: I Have Housing Concerned About Future Housing: No Difficulty Paying Gas/Electric Bills: No Difficulty Paying for Meds: No
[2023-09-05 12:40] VITALS: BP 104/67; PULSE 81; RESP 18; TEMP 37.2; O2SAT 97
== END 2023-09-05 13:05 | disposition home or self-care (01) ==
PROVIDERS: Emergency Provider Nurse Practitioner; PCP Family Medicine
DX: U07.1 COVID-19 (principal); E78.5 Hyperlipidemia, unspecified; E03.9 Hypothyroidism, unspecified
CPT/HCPCS: 87426; 99213; C9803; G0463

== ENCOUNTER 2024-10-15 12:24 | Outpatient (CLI) | payer BC, SELFPAY ==
--- NOTE | ~2024-10-15 | MM_ITS ---
EXAMINATION: MM screening primo BI w nehemias HISTORY: Screening mammogram TECHNIQUE: Craniocaudal and mediolateral oblique 3-D tomosynthesis images were obtained and synthetic 2-D images were generated. CAD analysis was submitted and interpreted. COMPARISON: No prior mammogram is available for comparison at this institution. BREAST PARENCHYMAL COMPOSITION:Not Dense. The breasts are almost entirely fatty FINDINGS: No suspicious mass, calcification, or architectural distortion are identified in either agnieszka ast to suggest malignancy. IMPRESSION: No mammographic evidence of malignancy. Recommend routine screening mammography in one year. BI-RADS Category 1: Negative Reviewed, dictated and finalized at location . RESSURIST
== END 2024-10-15 12:25 | disposition home or self-care (01) ==
LOC: MICIMG 12:25
PROVIDERS: PCP Family Medicine; Visit Provider Nurse Practitioner Family
DX: Z12.31 Encounter for screening mammogram for malignant neoplasm of breast (principal)
CPT/HCPCS: 77063; 77067

== ENCOUNTER → 2024-11-22 14:26 | Outpatient (CLI) | payer BC, SELFPAY ==
--- NOTE | ~2024-11-22 | XR_ITS ---
EXAMINATION: XR chest 2V DATE: 11/22/2024 14:55 INDICATION: Cough. TECHNIQUE: Frontal and lateral views of the chest were obtained. COMPARISON: Chest 2 views 10/28/2022, CT abdomen and pelvis 07/02/2022 FINDINGS: There is mild atelectasis in left midlung zone. There is chronic blunting of right lateral costophrenic angle. No pleural effusion or pneumothorax. The heart size is normal. There are old heal ed right rib fractures. IMPRESSION: 1. Mild atelectasis in left midlung zone. Reviewed, dictated and finalized at location A. TS MEDICINE PHYSICIAN
== END ==
LOC: EXPCRAD 14:28
PROVIDERS: PCP Nurse Practitioner Family; Visit Provider Nurse Practitioner Family
DX: J98.11 Atelectasis (principal)
CPT/HCPCS: 71046

== ENCOUNTER 2025-07-10 12:10 | Outpatient (CLI) | payer BC, SELFPAY ==
--- OUTSIDE RECORDS SUMMARY | 2024-09-29 16:30 | XMS_ITS ---
Author Organization [facility] Address [address] [facility] [address] [place], [place] [id number] Care Team Providers Care Broom Worker Name Role Phone Ella Streeter Primary Care Provider U Desmond Christine Unavailable [phone] Migration, Provider Unavailable Unavailable Allergies Allergen (clinical drug ingredient) Drug/Non Drug Allergy documented on EMR Reaction Allergy Type Onset Date Status VICODINE (uncoded) Unknown Allergy A ctive [facility]AS[facility] FOR VISIT [facility] Encounter Medications Medication SIG (Take, Route, Frequency, Duration) Notes Start Date End Date Status Lysine *Please review a nd pick correct strength-formulatio n from Medispan options. If intended option is not shown, discontinue and re-order from Quick Search* Active VALTREX 1 GM *Please review f or potential replacement for e-prescription and drug interaction check* Active ESTROVEN *Please review f or potential replacement for e-prescription and drug interaction check* Active PriLOSEC *Please review a nd pick correct strength-formulatio n from Medispan options. If intended option is not shown, discontinue and re-order from Quick Search* Active Levothyroxine Sodium 100 MCG Tablet 1 tab(s) orally once a day; Duration: 30 day(s) 07/08/2014 Active Niacin *Please review a nd pick correct strength-formulatio n from Medispan options. If intended option is not shown, discontinue and re-order from Quick Search* Active ZyrTEC *Please review a nd pick correct strength-formulatio n from Medispan options. If intended option is not shown, discontinue and re-order from Quick Search* Active Multivitamin *Please review a nd pick correct strength-formulatio n from Medispan options. If intended option is not shown, discontinue and re-order from Quick Search* Active Aciphex *Please review a nd pick correct strength-formulatio n from Medispan options. If intended option is not shown, discontinue and re-order from Quick Search* Active Singulair *Please review a nd pick correct strength-formulatio n from Medispan options. If intended option is not shown, discontinue and re-order from Quick Search* Active Flonase Allergy Relief *Please review and pick correct strength-formulatio n from Medispan options. If intended option is not shown, discontinue and re-order from Quick Search* Active Magnesium *Please review a nd pick correct strength-formulatio n from Medispan options. If intended option is not shown, discontinue and re-order from Quick Search* Active Encounters Encounter Location Date Provider Diagnosis [facility] [place] [address] [address] [phone] 09/29/2024 Provider Migration Thyroid nodule 241.0 Assessments Encounter Date Diagnosis (ICD Code) Assessment Notes Treatment Notes Treatment Clinical Notes Section Notes 09/29/2024 Thyroid nodule (ICD9-CM - 241.0) Plan Of Treatment Medication Medication Name Sig Start Date Stop Date Notes Levothyroxine Sodium 100 MCG Tablet 1 tab(s) orally once a day; Duration: 30 day(s) 07/08/2014 Progress Notes * [facility]arr [facility] SDOB:1960 (64 yo F)Acc No.[id number]:09/29/2024 Patient: Prieto sureshStarr mcghee Provider: Maryjane lopez Migration :1960 A ge:64 Y S ex:Female Date:09/29/2024 [facility] Pcp:Ella Streeter Subjective: * Chief Complaints: * M ultum To Medispan Conversion Encounter * Medications: T akingESTROVEN , Notes to Pharmacist: *Please review for potential replacement for e-prescription and drug interaction check*Lysine , Notes to Pharmacist: *Please review and pick correct strength-formulation from Medispan options. If intended option is not shown, discontinue and re-order from Quick Search*VALTREX 1 GM , Notes to Pharmacist: *Please review for potential replacement for e-prescription and drug interaction check*Flonase Allergy Relief , Notes to Pharmacist: *Please review and pick correct strength-formulation from Medispan options. If intended option is not shown, discontinue and re-order from Quick Search*Magnesium , Notes to Pharmacist: *Please review and pick correct strength-formulation from Medispan options. If intended option is not shown, discontinue and re-order from Quick Search*Aciphex , Notes to Pharmacist: *Please review and pick correct strength-formulation from Medispan options. If intended option is not shown, discontinue and re-order from Quick Search*Singulair , Notes to Pharmacist: *Please review and pick correct strength-formulation from Medispan options. If intended option is not shown, discontinue and re-order from Quick Search*ZyrTEC , Notes to Pharmacist: *Please review and pick correct strength-formulation from Medispan options. If intended option is not shown, discontinue and re-order from Quick Search*Multivitamin , Notes to Pharmacist: *Please review and pick correct strength-formulation from Medispan options. If intended option is not shown, discontinue and re-order from Quick Search*Niacin , Notes to Pharmacist: *Please review and pick correct strength-formulation from Medispan options. If intended option is not shown, discontinue and re-order from Quick Search*PriLOSEC , Notes to Pharmacist: *Please review and pick correct strength-formulation from Medispan options. If intended option is not shown, discontinue and re-order from Quick Search*Taking ESTROVEN , Notes to Pharmacist: *Please review for potential replacement for e-prescription and drug interaction check*Taking Lysine , Notes to Pharmacist: *Please review and pick correct strength-formulation from Medispan options. If intended option is not shown, discontinue and re-order from Quick Search*Taking VALTREX 1 GM , Notes to Pharmacist: *Please review for potential replacement for e-prescription and drug interaction check*Taking Flonase Allergy Relief , Notes to Pharmacist: *Please review and pick correct strength-formulation from Medispan options. If intended option is not shown, discontinue and re-order from Quick Search*Taking Magnesium , Notes to Pharmacist: *Please review and pick correct strength-formulation from Medispan options. If intended option is not shown, discontinue and re-order from Quick Search*Taking Aciphex , Notes to Pharmacist: *Please review and pick correct strength- formulation from Medispan options. If intended option is not shown, discontinue and re-order from Quick Search*Taking Singulair , Notes to Pharmacist: *Please review and pick correct strength-formulation from Medispan options. If intended option is not shown, discontinue and re-order from Quick Search*Taking ZyrTEC , Notes to Pharmacist: *Please review and pick correct strength-formulation from Medispan options. If intended option is not shown, discontinue and re-order from Quick Search*Taking Multivitamin , Notes to Pharmacist: *Please review and pick correct strength-formulation from Medispan options. If intended option is not shown, discontinue and re-order from Quick Search*Taking Niacin , Notes to Pharmacist: *Please review and pick correct strength-formulation from Medispan options. If intended option is not shown, discontinue and re-order from Quick Search*Taking PriLOSEC , Notes to Pharmacist: *Please review and pick correct strength- formulation from Medispan options. If intended option is not shown, discontinue and re-order from Quick Search* * Allergies: V ICODINE Assessment: * Assessment: 1. T hyroid nodule - 241.0 (Primary) Plan: * Treatment: * Electronic signature of Prov quintonr Migration on 07/10/2025 at 12:35 PM CDT Sign off status: Pending * Provider: Maryjane lopez Migration Date: 11/30/2023 Generated for Gold yadav/Edita/Ilda on: 0 07/10/2025 12:35 PM CDT
--- OUTSIDE RECORDS SUMMARY | 2025-07-10 12:35 | XMS_ITS | Encounter Summary ---
Author Organization [facility] Address [address] [place] [address] Phone Care Team Providers Care Rn Neonatal Icu Name Role Phone Nadir Graham APRN, JAS Primary Care Provider Reason for Referral * Radiology Services (Routine) - Closed Specialty Diagnoses / Procedures Referred By Contac t Referred To Contact Radiology Diagnoses Pre-op testing Procedures EKG 12 LEAD Benigno Aceves APRN, CRNA #[address] [place] [address] Phone: tel: fax: Referral ID Status Reason Start Date Expiration Date Visits Re quested Visits Authorized [id number] Closed 11/06/2021 1 1 H DEVELOPMENT SPECIALIST Encounter Details Date Type Department Care Team (Late st Contact Info) Description 11/06/2021 Transcribe Orders [facility] Preop/Pacu II [address] [place] [address] Benigno Aceves APRN, PASCALE #[address] [place] [address] Pre-op testing (Primary Dx) Social History Tobacco Use Types Packs/Day Years Used Date Smoking Tobacco: Never Smokeless Tobacco: Never Alcohol Use Standard Drinks/Week Comments Never 0 (1 standard drink = 0.6 oz pur e alcohol) Comments Unknown Sex and Gender Information Value Date Recorded Sex Assigned at Not on file Legal Sex Female 10:16 PM CDT Gender Identity Not on file Sexual Orientation Not on file COVID-19 Exposure Response Date Recorded In the last month, have you been in contact with someone who was confirmed or suspected to have Coronavirus / COVID-19? No / Unsure 11/09/2021 10:29 AM YOUTH DEVELOPMENT SPECIALIST documented as of this encounter Plan of Treatment Not on file documented as of this encounter Results * EKG 12 LEAD (11/09/2021 11:00 AM YOUTH DEVELOPMENT SPECIALIST) Ventricular Rate BPM EXTERNAL EKG Atrial Rate BPM EXTERNAL EKG P-R Interval 148 ms EXTERNAL EKG QRS Duration 98 ms EXTERNAL EKG Q-T Duration 404 ms EXTERNAL EKG QTC CALCULATION 430 ms EXTERNAL EKG P Violet 69 degrees EXTERNAL EKG R Violet -48 degrees EXTERNAL EKG T Violet 64 degrees EXTERNAL EKG 11/09/2021 11:0 0 AM YOUTH DEVELOPMENT SPECIALIST Impressions EXTERNAL EKG - 11/10/2021 9:44 AM YOUTH DEVELOPMENT SPECIALIST Sinus rhythm Left anterior fascicular block rSr'(V1) - probable normal variant Comparison Summary: No serial comparison made Summary: Borderline ECG Confirmed by Sangeetha Moreau [id number] on 11/10/2021 9:44:17 AM Narrative Procedure Note Deborah Vivas MD - 11/10/2021 IMPRESSION: Sinus rhythm Left anterior fascicular block rSr'(V1) - probable normal variant Comparison Summary: No serial comparison made Summary: Borderline ECG Confirmed by Sangeetha Moreau [id number] on 11/10/2021 9:44:17 AM us Benigno Clevelandatzke MANAGER HEART FAILURE, TECHNICAL ILLUSTRATIONS MAP INKER IMG ECG ORDERABLES Final Result EXTERNAL EKG * SARS-COV-2 BY MOLECULAR (11/09/2021 10:43 AM YOUTH DEVELOPMENT SPECIALIST) SARSCOV2 NOT DETECTED (Referen ce Range for this test is Not Detected ) [facility] THERMOFISHER FAST DX 11/10/2021 8:06 AM YOUTH DEVELOPMENT SPECIALIST [facility] Comment:This test was perfor med by a RT-PCR method. Other NASAL STRUCTURE / Unknown Non-Phlebotomy Collection / Unknown 11/09/2021 10:43 AM YOUTH DEVELOPMENT SPECIALIST 11/09/2021 11:09 AM YOUTH DEVELOPMENT SPECIALIST Narrative [facility] - 11/10/2021 8:06 AM YOUTH DEVELOPMENT SPECIALIST Authorized Fact Sheets about this test for providers and patients are available at: https://www.fda.gov/medical-devices/wtyiitanw-kaksbrezeb-mqfpuxy-devices/emergen -us e-authorizations Benigno Aceves APRN, CRNA MICROBIOLOGY - GEN ERAL ORDERABLES Final Result Performing Organization Address City/[facility]/ZIP Co de Phone Number [facility] [address] [place] [address], * HEMOGLOBIN & HEMATOCRIT (H&H) (11/09/2021 10:43 AM YOUTH DEVELOPMENT SPECIALIST) HEMOGLOBIN (HGB) 14.2 12.0 - 15.8 g/dL 11/09/2021 11:12 AM YOUTH DEVELOPMENT SPECIALIST [facility] HEMATOCRIT (HCT) 43.0 36.0 - 47.0 % 11/09/2021 11:12 AM YOUTH DEVELOPMENT SPECIALIST [facility] Blood Venipuncture / Unknown 11/09/2021 10:43 AM YOUTH DEVELOPMENT SPECIALIST 11/09/2021 11:09 AM YOUTH DEVELOPMENT SPECIALIST Benigno Aceves APRN, CRNA HEMATOLOGY ORDERAB LES Final Result [facility] [address] [place] [address] documented in this encounter Visit Diagnoses Diagnosis Pre-op testing- Primary Preoperative examination, unspecified Pre-op testing Preoperative examination, unspecified documented in this encounter Care Teams Rn Neonatal Icu Relationship Specialty Start Date End Date Nadir Graham, ARNULFO, CONTEMPORARY OR MODERN DANCER [address] [place] [address] [place] [address] PCP - General Certified Nurse Practitioner 11/09/21 documented as of this encounter
--- OUTSIDE RECORDS SUMMARY | 2025-07-10 12:35 | XMS_ITS | Encounter Summary ---
Author Organization [facility] Address [address] [place] [address] Care Team Providers Care Insole Taper Name Role Phone Unavailable Primary Care Provider Unavailabl e Encounter Details Date Type Department Care Team (Late st Contact Info) Description 10/30/2024 Lab Requisition [facility] - DermPath Lab [address] [facility], [place] [phone] Ivanna Klein MD [address] [facility] [address] [place] [address] Social History Tobacco Use Types Packs/Day Years Used Date Smoking Tobacco: Never Comments Unknown Sex and Gender Information Value Date Recorded Sex Assigned at Not on file Legal Sex Female 1:54 PM STOVE TENDER Gender Identity Not on file Sexual Orientation Not on file documented as of this encounter Plan of Treatment Not on file documented as of this encounter Procedures Procedure Name Priority Date/Time Associated Diagnosis Comments DERMATOPATHOLOGY Routine 10/30/2024 11:2 2 AM STOVE TENDER documented in this encounter Results * DERMATOPATHOLOGY (10/30/2024 11:22 AM STOVE TENDER) Case Report Dermatopathology Report Case: [id number] Authorizing Provider: Ivanna Klein MD Collected: 10/30/2024 11:22 AM Ordering Location: [facility] - Received: 10/31/2024 01:55 PM DermPath Lab Pathologist: Serenity Vinson MD Specimen: Skin, right ala 5 4:13 PM [facility] DERMATOPATHOLOGY LABORATORY Final Diagnosis Specimen A. SKIN, right ala: INTRADERMAL MELANOCYTIC NEVUS (D22.39) 5 4:13 PM [facility] DERMATOPATHOLOGY LABORATORY at [address]13 STOVE TENDER Clinical History R/O Nevus vs FP vs BCC 4:13 PM [facility] DERMATOPATHOLOGY LABORATORY Gross Description Specimen A: Received is one formalin filled container labeled with the patient's name and designated right ala. The specimen consists of a shave biopsy measuring 2 pieces 3x3x1,2x2x1 mm. Jar 0. 4:13 PM [facility] DERMATOPATHOLOGY LABORATORY Microscopic Description Specimen A. SKIN, right ala: There are nests of cytologically bland melanocytes within the dermis that mature with depth. 4:13 PM [facility] DERMATOPATHOLOGY LABORATORY Disclaimer An external and internal positive and negative controls are appropriate for the histochemical, immunohistochemical and immunofluorescence stain(s) in this case (if any), except where stated explicitly. The performance characteristics of the stain(s) cited in this report were developed and its performance characteristic determined by the Dermatopathology Laboratory at [facility], directed by Dr. Shruti Schilling. These tests need not be, and therefore are not, approved by the [place] Food and Drug Administration. The tests are used for clinical purposes. Billing Codes Specimen Charges Stain Charges 61848 1 4:13 PM STOVE TENDER DERMATOPATHOLOGY LABORATORY Embedded Images 4:13 PM [facility] DERMATOPATHOLOGY LABORATORY Pathology/Cytolo gy TISSUE SPECIMEN FROM SKIN / Unknown 10/30/2024 11:22 AM STOVE TENDER 10/31/2024 1:55 PM STOVE TENDER us Ivanna Klein MD LAB - PATHOLOGY/CYTOLOGY ORD ERABLES Final Result DERMATOPATHOLOGY LABORATORY [facility] - Department of Dermatology [address] [place] [address], [place] [phone] documented in this encounter Visit Diagnoses Not on filedocumented in this encounter
--- OUTSIDE RECORDS SUMMARY | 2025-07-10 12:35 | XMS_ITS | Encounter Summary ---
Author Organization [facility] Address [address] [facility] [place] [address] Care Team Providers Care Pantograph Machine Operator Name Role Phone Unavailable Primary Care Provider Unavailabl e Encounter Details Date Type Department Care Team (Late st Contact Info) Description 09/22/2023 Lab Requisition [facility] - DermPath Lab [address] [facility] [place] [phone] Ivanna Klein MD [address] [facility] [address] [place] [address] Social History Tobacco Use Types Packs/Day Years Used Date Smoking Tobacco: Never Comments Unknown Sex and Gender Information Value Date Recorded Sex Assigned at Not on file Legal Sex Female 1:54 PM CNA HHA Gender Identity Not on file Sexual Orientation Not on file documented as of this encounter Plan of Treatment Not on file documented as of this encounter Procedures Procedure Name Priority Date/Time Associated Diagnosis Comments DERMATOPATHOLOGY Routine 09/22/2023 9:34 AM CNA HHA documented in this encounter Results * DERMATOPATHOLOGY (09/22/2023 9:34 AM CNA HHA) Case Report Dermatopathology Report Case: [id number] Authorizing Provider: Ivanna Klein MD Collected: 09/22/2023 09:34 AM Ordering Location: [facility] DermPath Lab Received: 09/23/2023 09:51 AM Pathologist: Frances Shay MD Specimen: Skin, left inner eyelid margin 3 1:19 PM [facility] DERMATOPATHOLOGY LABORATORY Final Diagnosis Specimen A. 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 The specimen consists of a shave biopsy measuring 2x2x1 mm. Jar 0. 1:19 PM [facility] DERMATOPATHOLOGY LABORATORY Microscopic Description Specimen A. SKIN, left inner eyelid margin: Within the dermis, there is a space lined by one to several layers of typical epithelial cells that resemble the lining of the normal sweat duct. Additional deeper sections were obtained and reviewed. 1:19 PM [facility] DERMATOPATHOLOGY LABORATORY Disclaimer An external and internal positive and negative controls are appropriate for the histochemical, immunohistochemical and immunofluorescence stain(s) in this case (if any), except where stated explicitly. The performance characteristics of the stain(s) cited in this report were developed and its performance characteristic determined by the Dermatopathology Laboratory at [facility], directed by Dr. Shruti Schilling. These tests need not be, and therefore are not, approved by the [place] Food and Drug Administration. The tests are used for clinical purposes. Billing Codes Specimen Charges Stain Charges 97817 1 3 1:19 PM [facility] DERMATOPATHOLOGY LABORATORY Embedded Images 3 1:19 PM [facility] DERMATOPATHOLOGY LABORATORY Pathology/Cytolo gy TISSUE SPECIMEN FROM SKIN / Unknown 09/22/2023 9:34 AM CNA HHA 09/23/2023 9:51 AM [facility] us Ivanna Klein MD LAB - PATHOLOGY/CYTOLOGY ORD ERABLES Final Result DERMATOPATHOLOGY LABORATORY [facility] - Department of Dermatology [address], [address] [phone] documented in this encounter Visit Diagnoses Not on filedocumented in this encounter
--- OUTSIDE RECORDS SUMMARY | 2025-07-10 12:35 | XMS_ITS | Patient Health Record ---
Author Organization [facility] [place] Address [address] [place], [place] [address] Care Team Providers Care Redevelopment Manager Name Role Phone Ella Streeter Primary Care Provider U Desmond Christine Unavailable [phone] Migration, Provider Unavailable Unavailable Allergies Allergen (clinical drug ingredient) Drug/Non Drug Allergy documented on EMR Reaction Allergy Type Onset Date Status VICODINE (uncoded) Unknown Allergy A ctive Reason For Referral No Information Medications Medication SIG (Take, Route, Frequency, Duration) [...] for e-prescription and drug interaction check* Active Niacin *Please review a nd pick correct strength-formulatio n from Medispan options. If intended option is not shown, discontinue and re-order from Quick Search* Active PriLOSEC *Please review a nd pick correct strength-formulatio n from Medispan options. If intended option is not shown, discontinue and re-order from Quick Search* Active Levothyroxine Sodium 100 MCG Tablet 1 tab(s) orally once a day; Duration: 30 day(s) 07/08/2014 Active ZyrTEC *Please review a nd pick [...] discontinue and re-order from Quick Search* Active Social History Social History Additional Details Category Social Info Options Details Social History Occupation Yes Recreational drug use No Smokeless Tobacco No Passive smoke exp: No Problems Problem Type SNOMED Code ICD Code Onset Dates Problem Status W/U Status Risk Notes Problem Non-toxic multinodular goiter (97094309) Multinodular goiter, nontoxic (241.1) Active confirmed Problem Dysphonia (disorder) (28801588) 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 Problem Laryngeal spasm (475458549) Laryngeal spasm (478.75) Active confirmed Encounters Encounter Location Date Provider Diagnosis [facility] [place] [address] [facility] [address] [place], [place] [phone] 09/29/2024 Provider Migration Thyroid nodule 241.0 Assessments Encounter Date Diagnosis (ICD Code) Assessment Notes Treatment Notes Treatment Clinical Notes Section Notes 09/29/2024 Thyroid nodule (ICD9-CM - 241.0) Plan Of Treatment No Information Insurance Providers Payer Name Payer Address Payer Phone Subscriber Number Group Number Insured Name Patient Relationship to Insured Coverage Start Date Coverage End Date [facility] Insurance [facility] [address] [place] [phone] [id number] Moisés Wahl Spouse - patient is the spouse of the insured Medical (General) History Medical History History ICD Code Pertinent Medical History: V ision changes, History of Allergies, Nose problems, Throat/Neck problems, Asthma, Thyroid problems Surgical History Surgery Date(Month/Year) bunion sx hysterectomy tubes tied lung exploratory (when pt was 10) r thyroidlobectomy 06/25/14-[facility] Hospitalization History Reason Date(Month/Year) hysterectomy
--- OUTSIDE RECORDS SUMMARY | 2025-07-10 12:35 | XMS_ITS | Clinical Summary ---
Author Organization [facility] Address [address] [place] [address] Phone Care Team Providers Care Trade Show Coordinator Name Role Phone Nadir Graham APRN, TRACKLESS TROLLEY DRIVER Primary Care Provider Allergies Active Allergy Reactions Criticality Noted Date Comments Chocolate Anaphylaxis High 11/06/2021 [place] (Rigo Rinaldi) Allergy Skin Test Anaphylaxis,Hives,Swelling High 11/06/2021 Hydrocodone Hives,Hallucinations High 11/06/2021 Triticum Aestivum (Whole Wheat) Allergy Skin Test Swelling Medium 11/06/2021 Medications atorvastatin (LIPITOR) 10 MG Tablet Take 10 mg by mouth every morning. Active Mobile-3 Fatty Acids (fish oil) 1200 MG Capsule Take 1,200 mg by mouth daily. STOP TAKING 3 DAYS BEFORE SURGERY Active Kuaoip-Bcweo-Na al Ac-Ca Fructo (Move Free Counts Include [address] [facility] Advance) Tablet Take by mouth every morning. STOP TAKING 3 DAYS PRIOR TO SURGERY Active levothyroxine (SYNTHROID) 100 MCG Tablet Take 100 mcg by mouth every morning. Active montelukast (SINGULAIR) 10 MG Tablet Take 10 mg by mouth every evening. Active famotidine (PEPCID) 20 MG Tablet Take 20 mg by mouth every evening. Active Cetirizine HCl (ZYRTEC PO) Take 1 Tablet by mouth daily. Active Rhubarb (ESTROVEN MENOPAUSE RELIEF PO) Take 1 Capsule by mouth daily. Active L-Lysine 1000 MG Tablet Take 1 Tablet by mouth daily. Active MAGNESIUM PO Take 400 mg by mouth daily. Active Phentermine HCl 37.5 MG Tablet Take 37.5 mg by mouth every morning (before breakfast). Active Fluticasone Propionate (FLONASE NA) by Nasal route daily. Active Active Problems No known active problems Resolved Problems Problem Noted Date Diagnosed Date Resolved Date Bunion of great toe of left foot 11/11/2021 11/11/2021 Family History Medical History Relation Name Comments Chronic Obstructive Pulmonary Disease Father Hypertension Father Osteoarthritis Father Cancer Mother LUNG Chronic Obstructive Pulmonary Disease Mother Heart Attack Mother Relation Name Status Comments Father Mother Social History Tobacco Use Types Packs/Day Years Used Date Smoking Tobacco: Never Smokeless Tobacco: Never Alcohol Use Standard Drinks/Week Comments Never 0 (1 standard drink = 0.6 oz pur e alcohol) Comments Unknown Sex and Gender Information Value Date Recorded Sex Assigned at Not on file Legal Sex Female 10:16 PM CDT Gender Identity Not on file Sexual Orientation Not on file Last Filed Vital Signs Vital Sign Reading Time Taken Comments Blood Pressure 125/69 11/11/2021 9:55 AM JACQUARD LOOM WEAVER Pulse 59 11/11/2021 9:55 AM JACQUARD LOOM WEAVER Temperature 35.5 C (95.9 F) 11/11/2021 9:55 AM JACQUARD LOOM WEAVER Respiratory Rate 16 11/11/2021 9:55 AM JACQUARD LOOM WEAVER Oxygen Saturation 96% 11/11/2021 9:55 AM JACQUARD LOOM WEAVER Inhaled Oxygen Concentration - - Weight 88.9 kg (196 lb) 11/11/2021 6:08 AM JACQUARD LOOM WEAVER Height 167.6 cm (5' 6) 11/11/2021 6:08 AM JACQUARD LOOM WEAVER Body Mass Index 31.64 11/11/2021 6:08 AM JACQUARD LOOM WEAVER Plan of Treatment Health Maintenance Due Date Last Done Comments Hepatitis C Virus (HCV) Screening 1962 Cologuard 2007 Colonoscopy 2007 Colorectal Cancer Screening 2007 Immunochemical Fecal Occult Blood 2007 Zoster Immunization (1 of 2) 2012 Pneumococcal Immunization (50+ years) (2 of 2 - PCV20 or PCV21) 05/23/2021 05/23/2020 Influenza Immunization (#1) 06/17/202507/17, 07/05/2020, 07/30/2019, Additional history exists SARS-COV-2 Immunization ( season) 2025 08/16/2021, 01/07/2021, 12/16/2020 Respiratory Syncytial Virus (RSV) Immunization (Adult) (1 - 1-dose 75+ series) 2037 Meningococcal Immunization (ACWY) Aged Out 10/01/2003 No longer eligible based on patient's age to complete this topic Hepatitis B Immunization Completed 004, 11/05/2003, 10/01/2003 DTaP/Tdap/Td Immunization Discontinued 04/16/2019, TdaP Immunization Completed 04/16/2019, 06/04/2015 Pneumococcal Immunization Combined Discontinued 05/23/2020 Human Papillomavirus (HPV) Immunization Aged Out No longer eligible based on patient's age to complete this topic Rotavirus Immunization Aged Out No lo nger eligible based on patient's age to complete this topic Medical Devices Implanted Type Area Ap Processor Device Identifier Shelf Expiration Date Model / Serial / Lot Easyclip Staple [id number] - [id number] Implanted:Qty: 1 on 11/11/2021 by Magdi Salas, DPM at [facility] IMPLANT Left: Toe Ling Orthopedic 08/16/2026 [id number] / [id number] / [id number] Screw Bone 3mm 20mm 5mm Asnis Ti Micro Rvrs Cut Flute Foot Hand Self Cut Viraj Clr Cd Loprfl Head Ns - [id number] Implanted:Qty: 1 on 11/11/2021 by Magdi Salas, DPM at [facility] IMPLANT Left: Toe LING [id number] / [id number] / [id number] Insurance [employer] Care Teams Trade Show Coordinator Relationship Specialty Start Date End Date Nadir Graham, SOCIAL MEDIA SENIOR ASSOCIATE, TRACKLESS TROLLEY DRIVER [address] [place] [address] PCP - General Certified Nurse Practitioner 11/09/21
--- OUTSIDE RECORDS SUMMARY | 2025-07-10 12:35 | XMS_ITS | Clinical Summary ---
Author Organization [facility] Address [address] [place] [address] Care Team Providers Care Charge Nurse Name Role Phone Unavailable Primary Care Provider Unavailabl e Source Comments [facility],non-owned Affiliates and Associated Physician Practices is amultiple site organization consisting of ambulatory clinics and hospital sitesin [place], [place], [place] and [place]. This disclosure is being madepursuant to the Care Everywhere program and may not contain all information available regarding this patient. Last updated 18.[facility] Allergies No known active allergies Medications * Be aware that medications may not be up to date on this document. Alwaysverify current medications with the patient. Montelukast Sodium (SINGULAIR PO) Activ e RANITIDINE HCL PO Active OXYBUTYNIN CHLORIDE PO Active predniSONE (DELTASONE) 20 MG tablet 3 TABLETS ONCE DAILY FOR 3 DAYS, THEN 2 TABLETS ONCE DAILY FOR 3 DAYS, THEN 1 TABLET ONCE DAILY FOR 4 DAYS. 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 Gender Identity Not on file Sexual Orientation Not on file Last Filed Vital Signs Vital Sign Reading Time Taken Comments Blood Pressure 114/70 03/10/2018 9:36 AM CDT Pulse 66 03/10/2018 9:36 AM CDT Temperature 36.8 C (98.3 F) 03/10/2018 9:36 AM CDT Respiratory Rate - - Oxygen Saturation - - Inhaled Oxygen Concentration - - Weight 90.7 kg (200 lb) 03/10/2018 9:36 AM CDT Height 167.6 cm (5' 6) 03/10/2018 9:36 AM CDT Body Mass Index 32.28 03/10/2018 9:36 AM CDT Plan of Treatment Health Maintenance Due Date Last Done Comments COLOGUARD (AGES 45-75) - COL ON CA SCREENING 1962 COLON MONITORING 1962 COLONOSCOPY - COLON CA SCREENING 1962 CT COLONOGRAPHY - COLON CA SCREENING 1962 Colorectal Cancer Screening 1962 FIT - COLON CA SCREENING 1962 FLEX SIG - COLON CA SCREENING 1962 LIPID TESTING 1962 MAMMOGRAM 1962 HIV SCREENING 1977 HEPATITIS C SCREENING 08/10/1980 DTAP/TDAP/TD VACCINES (1 - Tdap) 1981 PNEUMOCOCCAL VACCINE 50+ (1 of 1 - PCV) 2012 ZOSTER VACCINE (1 of 2) 2012 SCREENING FOR DIABETES 03/10/2018 DEPRESSION SCREENING 10/17/2024 COVID-19 VACCINE (1 - 2023-2 5 season) 2025 INFLUENZA VACCINE (#1) 2025 Respiratory Syncytial Virus (RSV) Vaccine Pt: or over 60 yrs (1 - 1-dose 75+ series) 2037 HEPATITIS B VACCINE Aged Out No longe r eligible based on patient's age to complete this topic HIB VACCINE Aged Out No longer eligi ble based on patient's age to complete this topic HPV VACCINE Aged Out No longer eligi ble based on patient's age to complete this topic MENINGOCOCCAL (Group B) VACC INE SHARED DECISION-MAKING Aged Out No longer eligibl e based on patient's age to complete this topic MENINGOCOCCAL GROUPS A/C/Y/W VACCINE Aged Out No longer eligible b ased on patient's age to complete this topic Insurance [facility] Address: [facility] [id number] [place] [phone]
--- OUTSIDE RECORDS SUMMARY | 2025-07-10 12:35 | XMS_ITS | Clinical Summary ---
Author Organization [facility] Address [address] [place] [address] Care Team Providers Care Hand Laster Name Role Phone Nadir Graham NP Primary Care Provider [phone] Allergies Active Allergy Reactions Criticality Noted Date Comments Acetaminophen Chocolate Anaphylaxis High 11/06/2021 [place] Pollen Extract Anaphylaxis,Hives,Swelling High 11/06/2021 Hydrocodone Hallucinations,Hives High 11/06/2021 Hydrocodone Hcl Itching Low 05/28/2021 Other Swelling,Unknown Medium 07/01/2014 Medications magnesium oxide (MAG-OX) 415 mg (250 mg elemental) tablet 250 mg. 0 01/26/20 13 Active fluticasone (FLONASE) 50 mcg/actuation nasal spray spray 1 spray by intranasal route every day in each nostril 0 01/26/20 13 Active O85-dstgbwbwwjxy calcium-B6 (FOLTX) 2-1.13-25 mg tablet 0 01/26/20 13 Active cholecalciferol (VITAMIN D3) 400 unit capsule 0 01/26/20 13 Active cetirizine (ZyrTEC) 10 mg capsule 10 mg. 0 01/26/20 13 Active montelukast (SINGULAIR) 10 mg tablet take 1 tablet (10MG) by oral route every day in the evening 0 01/26/20 13 Active phytosterol combination no.1 (CHOLEST CARE) 500 mg capsule 500 mg. 0 01/26/20 13 Active levothyroxine (SYNTHROID, LEVOTHROID) 100 mcg tablet 03/03/20 17 Active empty container bottle Administer into affected nostril(s). Active oxymetazoline (oxymetazoline) 0.05 % nasal spray Administer into each nostril. Active clindamycin (CLEOCIN) 300 mg capsule Take 2 capsules PO 1 hour prior to dental work. 2 capsule 3 04/24/20 20 Active albuterol HFA (PROVENTIL HFA,VENTOLIN HFA,PROAIR HFA) 90 mcg/actuation inhaler Ventolin HFA 90 mcg/actuation aerosol inhaler INHALE 2 PUFFS BY MOUTH EVERY 4 HOURS NEEDED Active atorvastatin (LIPITOR) 10 mg tablet daily Active famotidine (PEPCID) 20 mg tablet famotidine 20 mg tablet TAKE 1 TABLET BY MOUTH TWICE A DAY Active influenza quadrivalent [id number] (Flucelvax Quad ) 60 mcg (15 mcg x 4)/0.5 mL suspension Flucelvax Quad 60 mcg (15 mcg x 4)/0.5 mL intramuscular susp ADM 0.5ML IM UTD Active soy isofla/blk cohosh/mag bark (ESTROVEN ORAL) [place] Acti ve traMADoL (ULTRAM) 50 mg tablet Take 1-2 tablets every 6 hours as needed for pain. 40 tablet 02/20/20 21 Active promethazine-DM (PROMETHAZINE-DM ) 1.25-3 mg/mL syrup TAKE 5ML BY MOUTH EVERY 4 HOURS NEEDED 04/01/20 21 Active phentermine (ADIPEX-P) 37.5 mg tablet 0 07/10/[address] (ACIPHEX) 20 mg EC tablet Active potassium &magnesium aspartate (MAGNESIUM, POTASSIUM ASPARTATE ORAL) Take 400 mg by mouth daily Active multivit with minerals/lutein (MULTIVITAMIN 50 PLUS ORAL) Active oxybutynin chloride, bulk, powder Take by mouth Active omeprazole magnesium (PRILOSEC ORAL) Acti ve valACYclovir (VALTREX) 1 gram tablet Active cephalexin (KEFLEX) 500 mg capsule TAKE 1 CAPSULE BY MOUTH THREE TIMES A DAY FOR 7 DAYS 11/11/19 22 Active lysine 1,000 mg tablet Take 1 tablet by mouth daily Active sulfamethoxazole -trimethoprim (BACTRIM DS) 800-160 mg per tablet Take 1 tablet by mouth 2 (two) times a day 11/23/19 22 Active Active Problems Problem Noted Date Diagnosed Date Blood in urine 05/23/2020 Chronic bronchitis 05/23/2020 Heartburn 05/23/2020 Menopausal syndrome 05/23/2020 Seasonal allergies 05/23/2020 Urinary incontinence 05/23/2020 Hyperlipidemia 06/14/2019 Presence of total knee joint prosthesis, left Goiter 04/27/2013 Allergic rhinitis 02/26/2013 Asthma 02/26/2013 Immunizations Immunization Administration Dates Next Due Influenza, Quadrivalent, Spl it, Preservative Free, Intramuscular 08/18/2017 Pfizer SARS-CoV-2 Monovalent Vaccination (12+ Yrs) PURPLE 08/16/2021,01/07/2021,12/16/2020 Surgical History Surgery Date Site/Laterality Comments OTHER SURGICAL HISTORY tubal ligation 1989 LUNG SURGERY lung surgery BUNIONECTOMY bunion surgery OTHER SURGICAL HISTORY 10/17/2012 - 10/16/2013 left knee pain: XRays, Tramadol given HYSTERECTOMY 10/17/1998 - 10/16/1999 Hysterectomy Medical History Medical History Date Comments Disorder of thyroid Thyroid dise ase Asthma Asthma Hx Other Medical left knee pain; Comments: had X-Rays taken...no fx. given Tramadol 50mg #40 take 1-2 every 6 hours, no refills.... as well as crutches. told to call her regular doctor or orthopedic office.; Outcome: failed Family History Medical History Relation Name Comments Breast cancer Mother's Sister age 69 Heart disease Other 1 Family history of Heart disease; Hypertension Other 2 Family history of Hypertension; Lung disease Other 3 Family history of lung problems; Ovarian cancer Neg Hx Thyroid cancer Neg Hx Relation Name Status Comments Mother's Sister age 69 Other 1 Other 2 Other 3 Social History Tobacco Use Types Packs/Day Years Used Date Smoking Tobacco: Never Smokeless Tobacco: Never Alcohol Use Standard Drinks/Week Comments Yes 0 (1 standard drink = 0.6 oz pur e alcohol) Comments No Sex and Gender Information Value Date Recorded Sex Assigned at Not on file Legal Sex Female 5:11 PM COLOR MAKING SUPERVISOR Gender Identity Not on file Sexual Orientation Straight 08/28/2020 10 :49 PM COLOR MAKING SUPERVISOR Obstetrics History Para Term AB IAB SAB Ectopic Multiple Livin g Live Births 2 2 2 Date Outcome GA Total Labor Labor/2nd/3rd Weight Sex Type Anes PTL Kacie A1 A5 Name Clin Term Term Last Filed Vital Signs Vital Sign Reading Time Taken Comments Blood Pressure 110/70 12/01/2021 10:22 AM COLOR MAKING SUPERVISOR Pulse 83 12/01/2021 10:22 AM COLOR MAKING SUPERVISOR Temperature 36.2 C (97.1 F) 11/13/2020 9:35 AM COLOR MAKING SUPERVISOR Respiratory Rate - - Oxygen Saturation 96% 04/12/2013 9:33 AM CDT Inhaled Oxygen Concentration - - Weight 86.2 kg (190 lb) 12/01/2021 10:22 AM COLOR MAKING SUPERVISOR Height 168.9 cm (5' 6.5) 05/02/2023 9:09 AM CDT Body Mass Index 30.67 12/01/2021 10:22 AM COLOR MAKING SUPERVISOR Plan of Treatment Health Maintenance Due Date Last Done Comments Colon Cancer Screening-Colonoscopy 1962 Depression Screening 1962 Hepatitis C Screening 1962 Regular Well Visit/Exam 18-64 1980 Zoster Vaccine (1 of 2) 2012 Pneumococcal vaccine <65 (2 of 2 - PPSV23, PCV20, or PCV21) 07/18/2020 05/23/2020 Breast Cancer Screening-Mammogram 05/02/2024 05/02/2023, 05/02/2023, 09/25/2021, Additional history exists Covid-19 Vaccine (4 - 2024-2 6 season) 2025 08/16/2021, 01/07/2021, 12/16/2020 Influenza Vaccine (#1) 2025 9, 08/12/2018, 08/18/2017, Additional history exists DTaP/Tdap/Td Vaccine (3 - Td or Tdap) 04/16/2029 04/16/2019, 06/04/2015 Hepatitis B Screening Completed 05/12/2004 , 11/05/2003, 10/01/2003 Procedures Procedure Name Priority Date/Time Associated Diagnosis Comments SCREENING MAMMOGRAM BILATERAL [place] Schedule Routine, Read Routine (OP Routine) 05/02/2023 9:17 AM CDT Screening mammogram, encounter for from Last 3 Months or Most Recently Relevant to Health Maintenance Results * Screening Mammogram Bilateral [place] (05/02/2023 9:17 AM CDT) Anatomical Region Laterality Modality Breast Bilateral Mammography 05/02/2023 9:27 AM CDT Impressions 05/02/2023 9:27 AM CDT There is no mammographic evidence of malignancy. A 1 year screening mammogram is recommended. BI-RADS: 1 - Negative. The patient has been or will be contacted. The patient will be entered into a reminder system with a target due date of 1 year for her next mammogram. Electronically signed by: Ed Boudreaux M.D. Narrative 05/02/2023 9:27 AM CDT EXAMINATION: SCREENING MAMMOGRAM BILATERAL [place] ORDERING HEALTHCARE PROVIDER: SELF SCREENING MAMMOGRAM HISTORY: Routine screening mammography. COMPARISON: 09/25/2021, 07/23/2020, 11/09/2018, 01/12/2017 TECHNIQUE: CC and MLO views of the bilateral breasts were obtained with digital technique using breast tomosynthesis with C view. Computer aided detection was utilized. FINDINGS: DENSITY: The tissue of the bilateral breasts is almost entirely fatty. BREASTS: There are no suspicious masses, suspicious calcifications, or other suspicious findings in either breast. There has been no suspicious interval change. us Self Screening Mammogram IMG MAMMO PROCEDURES Fi nal Result from Last 3 Months or Most Recently Relevant to Health Maintenance Insurance [facility] [place] CHO[place] Member Subscriber Plan / Payer (Ef fective 2022-Present) Name:WahlAllisonmagdalena Brasher Relation to Subscriber:Self Name:Starr Wahl Anshu Payer ID:[id number] (NAIC) Type:HEALTHCARE/EXCHANGE Address: [address] [place] [phone] CHOICE [place]F PPO [place] Care Teams Hand Laster Relationship Specialty Start Date End Date Nadir Graham NP PCP - General 07/23/20
--- NOTE | 2025-07-10 12:42 | ECG_ITS ---
Test Date: 2025-07-10 12:49:35 Measurements Intervals [place] Rate: 73 P: 55 AK: 156 QRS: -44 QRSD: 109 T: 57 QT: 408 QTc: 451 Interpretive Statements SINUS RHYTHM LEFT ANTERIOR FASCICULAR BLOCK INCOMPLETE RIGHT BUNDLE BRANCH BLOCK [90+ ms QRS DURATION, TERMINAL R IN V1/V2, 40+ ms S IN I/aVL/V4/V5/V6] ABNORMAL ECG No previous ECG available for comparison Electronically Signed On 07-11-2025 12:41:10 CDT by Magdi Schmidt M.D.
[2025-07-10 13:04] LABS: Alanine Aminotransferase 30 U/L (6-35); Albumin Level 4.3 g/dL (3.5-5.1); Alkaline Phosphatase 75 U/L (38-126); Anion Gap 7 mmol/L (4-12); Aspartate Amino Transferase 42 U/L (14-36); Bilirubin,Total 0.7 mg/dL (0.2-1.3); Blood Urea Nitrogen 24 mg/dL (7-17); Calcium 9.0 mg/dL (8.4-10.2); Carbon Dioxide 30 mmol/L (22-30); Chloride 102 mmol/L (98-107); Estimated Glomerular Filt Rate > 60; Glucose 121 mg/dL (65-110); Potassium 4.0 mmol/L (3.4-5.0); Sodium 139 mmol/L (137-145); Total Protein 7.2 g/dL (6.3-8.2)
== END 2025-07-10 12:11 | disposition home or self-care (01) ==
LOC: ANHLAB 12:15
PROVIDERS: PCP Nurse Practitioner Family; Visit Provider Podiatrist Foot & Ankle Surgery
DX: Z01.818 Encounter for other preprocedural examination (principal); R03.0 Elevated blood-pressure reading, without diagnosis of hypertension; I45.10 Unspecified right bundle-branch block
CPT/HCPCS: 36415; 80053; 93005

== ENCOUNTER 2025-07-11 01:29 | Day surgery (SDC) | payer BC, SELFPAY ==
--- OUTSIDE RECORDS SUMMARY | 2022-09-30 19:00 | XMS_ITS | Continuity of Care Document ---
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 Name Role Phone Arjun THOMAS, Eldanolan Unavailable [...] MG - Active Saline Nose 0.65 % [place] Aerosol 1/qd - Active Procedures Procedure Date [...] THYROID STIMULATION HORMONE(TSH) 2018 ROUTINE VENIPUNCTURE OFFICE [id number] BODY MASS INDEX DOCD SYST BP LT 130 MM HG DIAST BP < 80 MM HG Advance Directives Directive Yes / No Effective Date File Name No Information Encounters Encounter Description Practice Location Reason(s) For Visit Diagnoses Date Provider Providers Copied on Encounter [facility], [address], [place], [place], [address] , [place] tel:[phone] [facility] No Information 2 Bialecki Eldad. [address] [facility] [address], [place], [place], [address], [place]. tel:[phone] Referring Provider: Remi Knight, [address], [place], [address]. tel:[phone] [facility], [address], [place], [place], [address] , [place] tel: [phone] [facility] No Information 2 Bialecki Eldad. [address] [facility] [address], [place], [place], [address], [place]. tel:[phone] [facility], [address], [place], [place], [address] , [place] tel: [phone] [facility] Office Of Dr Colby Jimenes MD No Information 0- 0 Jalil Bowman. [address] [place], [place], [address], [place]. tel:[phone] [facility], [address], [place], [place], [address] , [place] tel: [phone] [facility] Office Of Dr Colby Jimenes MD No Information 0 Jalil Bowman. [address] [place], [place], [address], [place]. tel:[phone] [facility], [address], [place], [place], [address] , [place] tel: [phone] [facility] Office Of Dr Colby Jimenes MD No Information 0 Jalil Bowman. [address] [place], [place], [address], [place]. tel:[phone] [facility], [address], [place], [place], [address] , [place] tel: [phone] [facility] Office Of Dr Colby Jimenes MD No Information 0 Jalil Bowman. [address] [place], [place], [address], [place]. tel:[phone] PREVENTATIVE -EST: 40-64 [facility], [address], [place], [place], [address] , [place] tel: [phone] [facility] Office Of Dr Colby Jimenes MD Annual (chief complaint)p reventive exam (chief complaint) Body mass index (BMI) 32.0-32.9, adultPhysical examHyperlipid emia, unspecified hyperlipidemia typeOAB (overactive bladder)Rectal examAbnormal finding in urine 0 Jalil Bowman. [address] [place], [place], [address], [place]. tel:[phone] Referring Provider: Colby Jimenes, [address] [place], [address] . tel:[phone] [facility], [address], [place], [place], [address] , [place] tel: [phone] [facility] No Information Jalil Bowman. [address] [place], [place], [address], [place]. tel:[phone] OFFICE [id number]-M[facility] TAILED [facility], [address], [place], [place], [address] , [place] tel: [phone] [facility] medical conditions (chief complaint) Hypothyroidism , unspecified typeHyperlipid emia, unspecified hyperlipidemia typeAsthma, unspecified asthma severity, unspecified whether complicated, unspecified whether persistentRigh t upper quadrant abdominal painBody mass index (BMI) 33.0-33.9, adult 9 Jalil Colby. [address] [place], [place], [address], [place]. tel:[phone] Referring Provider: Colby Jimenes, [address] [place], [address] . tel:[phone] [facility], [address], [place], [place], [address] , [place] tel:[phone] [facility] medical conditions (chief complaint) Hypothyroidism , unspecified typeDyslipidem iaAsthma, unspecified asthma severity, unspecified whether complicated, unspecified whether persistentBody mass index (BMI) 34.0-34.9, adult 9 Jalil Bowman. [address] [place], [place], [address], [place]. tel:[phone] Referring Provider: Colby Jimenes, [address] [place], [address] . tel:[phone] [facility], [address], [place], [place], [address] , tel:[phone] [facility] Hypothyroidism , unspecified typeDyslipidem iaFatigue, unspecified typeMicroscopi c hematuria 9 Jimenes Colby. [address] [place], [place], [address], [place]. tel:[phone] Referring Provider: Colby Jimenes, [address] [place], [address] . tel:[phone] [facility], [address], [place], [place], [address] , [place] tel:[phone] [facility] DyslipidemiaHy pothyroidism, unspecified typeAsthma, unspecified asthma severity, unspecified whether complicated, unspecified whether persistentPois on chaim 8 Jimenes Colby. [address] [place], [place], [address], [place]. tel:[phone] Referring Provider: Colby Jimenes, [address] [place], [address] . tel:[phone] [facility], [address], [place], [place], [address] , [place] tel:[phone] [facility] Hypothyroidism , unspecified typeUrgency of urinationAsthm a, unspecified asthma severity, unspecified whether complicated, unspecified whether persistentInso mnia, unspecified typeDyslipidem ia 8 Jalil Colby. [address] [place], [place], [address], [place]. tel:[phone] Referring Provider: Colby Jimenes, [address] [place], [address] . tel:[phone] [facility], [address], [place], [place], [address] , tel: [phone] [facility] Insomnia, unspecified typeDyslipidem iaHypothyroidi sm, unspecified typeObesity, unspecified classification , unspecified obesity type, unspecified whether serious comorbidity present Jimenes Colby. [address] [place], [place], [address], [place]. tel:[phone] Referring Provider: Colby Jimenes, [address] [place], [address] . tel:[phone] [facility], [address], [place], [place], [address] , tel: [phone] [facility] Insomnia, unspecified typeModerate asthma, unspecified whether complicated, unspecified whether persistent Jalil Colby. [address] [place], [place], [address], [place]. tel:[phone] Referring Provider: Colby Jimenes, [address] [place], [address] . tel:[phone] [facility], [address], [place], [place], [address] , [place] tel: [phone] [facility] Acute bronchitis, unspecified organismAsthma , unspecified asthma severity, unspecified whether complicated, unspecified whether persistentAlle rgic rhinitis, unspecified chronicity, unspecified seasonality, unspecified triggerDyslipi demiaHypothyro idism, unspecified typeOsteoarthr itis of left knee, unspecified osteoarthritis typePre-op evaluationAbno rmal chest xray Jalil Colby. [address] [place], [place], [address], [place]. tel:[phone] Referring Provider: Colby Jimenes, [address] [place], [address] . tel:[phone] [facility], [address], [place], [place], [address] , tel:[phone] [facility] Hematuria Mar-0 7 Jalil Bowman. [address] [place], [place], [address], [place]. tel:[phone] Referring Provider: Colby Jimenes, [address] [place], [address] . tel:[phone] [facility], [address], [place], [place], [address] , [place] tel: [phone] [facility] Physical examHypothyroi dism, unspecified typeUncomplica antwan asthma, unspecified asthma severityAllerg ic rhinitis, unspecified allergic rhinitis trigger, unspecified rhinitis seasonalityCra mps of lower extremity, unspecified lateralityRigh t shoulder pain, unspecified chronicityTMJ (dislocation of temporomandibu lar joint), initial encounterObesi ty, unspecified obesity severity, unspecified obesity typeContact dermatitis, unspecified contact dermatitis type, unspecified triggerAbnorma l urinalysis 0 7 Jalil Bowman. [address] [place], [place], [address], [place]. tel:[phone] Referring Provider: Colby Jimenes, [address] [place], [address] . tel:[phone] [facility], [address], [place], [place], [address] , tel: [phone] [facility] Acute bronchitis, unspecified organismUncomp licated asthma, unspecified asthma severityAllerg ic rhinitis, unspecified allergic rhinitis trigger, unspecified rhinitis seasonality 6 Jalil Bowman. [address] [place], [place], [address], [place]. tel:[phone] Referring Provider: Colby Jimenes, [address] [place], [address] . tel:[phone] [facility], [address], [place], [place], [address] , tel: [phone] [facility] Hypothyroidism , unspecified typeAllergic rhinitis, unspecified allergic rhinitis typeCramps of lower extremity, unspecified lateralityGast roesophageal reflux disease, esophagitis presence not specifiedAbnor mal CT scan, chestNon morbid obesity, unspecified obesity type 6 Jalil Bowman. [address] [place], [place], [address], [place]. tel:[phone] Referring Provider: Colby Jimenes, [address] [place] [address], [address] . tel:[phone] [facility], [address], [place], [place], [address] , [place] tel: [phone] [facility] Moderate persistent asthma with acute exacerbationCo ughingAllergic rhinitis, unspecified allergic rhinitis type 6 Jalil Bowman. [address] [place], [place], [address], [place]. tel:[phone] Referring Provider: Colby Jimenes, [address] [place] [address], [address] . tel:[phone] [facility], [address], [place], [place], [address] , [place] tel:[phone] [facility] Chronic GERDHypothyroi dism (acquired)Obes ity (BMI 30.0-34.9)Acut e bacterial pharyngitisOth bacterial agents as the cause of diseases classd elswhr Jalil Bowman. [address] [place], [place], [address], [place]. tel:[phone] Referring Provider: Colby Jimenes, [place], [address] . tel:[phone] [facility], [address], [place], [place], [address] , [place] tel:[phone] [facility] No Information Jalil Bowman. [address] [place], [place], [address], [place]. tel:[phone] [facility], [address], [place], [place], [address] , tel: [phone] [facility] Rib pain on right side 5 Valeri Lott. [address], [address], [place], [place], [address], . [phone] Referring Provider: Colby Jimenes, [address] [place] [address], [address] . tel:[phone] [facility], [address], [place], [place], [address] , tel: [phone] [facility] CoughAsthma 4 Valeri Lott. [address], [address], [place], [place], [address], . [phone] Referring Provider: Colby Jimenes, [address] [place] [address], [address] . tel:[phone] [facility], [address], [place], [place], [address] , tel: [phone] [facility] Paronychia of third finger of left hand 4 Bessemerdon Lott. [address], [address], [place], [place], [address], [place]. [phone] Referring Provider: Colby Jimenes, [address] [place] [address], [address] . tel:[phone] [facility], [address], [place], [place], [address] , tel: [phone] [facility] BurnParonychia BruisingH/O thyroidectomyN eed for Tdap vaccination 4 Valeri Lott. [address], [address], [place], [place], [address], . [phone] Referring Provider: Colby Jimenes, [address] [place] [address], [address] . tel:[phone] [facility], [address], [place], [place], [address] , tel: [phone] [facility] Abdominal pain [address]. [address], [place], [place], [address]. [phone] Referring Provider: Colby Jimenes, [address] [place], [address] . tel:[phone] [facility], [address], [place], [place], [address] , [place] tel: [phone] [facility] Cervicalgia 3 Bessemerdon Lott. [address], [address], [place], [place], [address], [place]. [phone] Referring Provider: Colby Jimenes, [address] [place] [address], [address] . tel:[phone] [facility], [address], [place], [place], [address] , [place] tel: [phone] [facility] No Information 3 Valeridon Lott. [address], [place], [place], [address], [place]. tel:[phone] [facility], [address], [place], [place], [address] , [place] tel: [phone] [facility] Routine general medical examination at a health care facilityAllerg ic rhinitis, cause unspecifiedAST HMA,UNSPECIFIE D TYPE, UNSPECIFIEDGoi ter, unspecifiedOth er and unspecified hyperlipidemia Herpes simplex without mention of complicationFe male climactericRou shabana general medical examination at a health care facility 3 Valeridon Lott. [address], [place], [place], [address], [place]. [phone] Referring Provider: Vikas Nino, [address] [place] [address] [address], [place], [address] . tel:[phone] [facility], [address], [place], [place], [address] , [place] tel: [phone] [facility] Goiter, unspecified 3 Trung Bean. [address], [address], [place], [place], [address], [place]. tel:[phone] [facility], [address], [place], [place], [address] , [place] tel: [phone] [facility] Upper respiratory infectionFever blister 3 Valeridon Bu[address]. [address], [address], [place], [place], [address], [place]. tel:[phone] [facility], [address], [place], [place], [address] , [place] tel: [phone] [facility] Allergic rhinitis, cause unspecifiedAST HMA,UNSPECIFIE D TYPE, UNSPECIFIEDOth er and unspecified hyperlipidemia 3 Valeridon Buenoa. [address], [address], [place], [place], [address], [place]. tel:[phone] [facility], [address], [place], [place], [address] , [place] tel: [phone] [facility] Allergic rhinitis, cause unspecifiedAST HMA,UNSPECIFIE D TYPE, UNSPECIFIEDCon stipation, unspecifiedOth er and unspecified hyperlipidemia Cervical radiculopathy due to degenerative joint d 3 No Information [facility], [address], [place], [place], [address] , [place] tel: [phone] [facility] ALLERGIC RHINITIS NOSASTHMA NOSConstipatio nOther and unspecified hyperlipidemia Routine general medical examination at a health care facility 2 No Information [facility], [address], [place], [place], [address] , [place] tel: [phone] [facility] Constipation 2 No Information [facility], [address], [place], [place], [address] , [place] tel: [phone] [facility] ALLERGIC RHINITIS NOS 1 No Information [facility], [address], [place], [place], [address] , [place] tel: [phone] [facility] [place] VAC STRPTCS PNEUMNI BASTHMA W [...] administered Source: Other Provid er Fluzone Quad 2400-0319, preservative free, split virus, 0.5mL dosage administered Source: Source Unspe cified Influenza, injectable, quadrivalent, 0.5mL dosage administered Note: [facility] ; Source: Other Registry Influenza, seasonal, injectable (3 yrs or older) administered Note: [facility] ; Source: Other Provider Tdap administered Source: 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 Related to Hyperlipidemia, unspecified hyperlipidemia type Healthy life style, monthly breast self exams, safe sex, no smoking/illicit drug use/alcohol abuse . yearly mammogram, see dentist regularly, yearly physical. 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 plz f/up w/pulmonary Related to Physical exam fob-. Can do it w/school plant consultant yearly Rel ated to Rectal exam Kegel exercise, continue school plant consultant car e Related to OAB (overactive bladder) [...] quadrant abdominal pain continue care Related to Asthm a, unspecified asthma severity, unspecified whether complicated, unspecified whether persistent continue care, check lab, 5m f/up w/pe or sooner prn. get flu shot 08/04 Related to Hypothyroidism, unspecified type continue care Related to Hyper lipidemia, unspecified hyperlipidemia type Disease process Dietary management e ducation, [...]
--- OUTSIDE RECORDS SUMMARY | 2024-09-29 16:30 | XMS_ITS ---
Author Organization [facility] Address [address] [facility] [address] [place], [place] [address] Care Team Providers Care Meat Pumper Name Role Phone Ella Streeter Primary Care Provider U Desmond Christine Unavailable [phone] Migration, Provider Unavailable Unavailable Allergies Allergen (clinical drug ingredient) Drug/Non Drug Allergy documented on EMR Reaction Allergy Type Onset Date Status VICODINE (uncoded) Unknown Allergy A ctive REASON FOR VISIT [facility] Encounter Medications Medication SIG (Take, [...] Location Date Provider Diagnosis [facility] [place] [address] [address] [phone] 09/29/2024 Provider Migration Thyroid nodule 241.0 Assessments Encounter Date Diagnosis (ICD Code) Assessment Notes Treatment Notes Treatment Clinical Notes Section Notes 09/29/2024 Thyroid nodule (ICD9-CM - 241.0) Plan Of Treatment Medication Medication Name Sig Start Date Stop Date Notes Levothyroxine Sodium 100 MCG Tablet 1 tab(s) orally once a day; Duration: 30 day(s) 07/08/2014 Progress Notes * Starr [facility] SDOB:1960 (64 yo F)Acc No.[id number]:09/29/2024 Patient: Prieto sureshStarr mcghee Provider: Maryjane lopez Migration :1960 A ge:64 Y S ex:Female Date:09/29/2024 [facility] Pcp:Ella Streeter Subjective: * Chief Complaints: * [...] Electronic signature of Prov quintonr Migration on 07/11/2025 at 01:32 AM CDT Sign off status: Pending * Provider: Maryjane lopez Migration Date: 11/30/2023 Generated for Gold yadav/Edita/Ilda on: 0 07/11/2025 01:32 AM CDT
[2025-06-27 09:06] VITALS: BMI 28.4
--- OUTSIDE RECORDS SUMMARY | 2025-07-11 01:32 | XMS_ITS | Clinical Summary ---
Author Organization [facility] Address [address] [place] [address] Phone Care Team Providers Care Body Joiner Name Role Phone Nadir Graham APRN, AIRCRAFT LAYOUT WORKER Primary Care Provider Allergies Active Allergy Reactions Criticality Noted Date Comments Chocolate Anaphylaxis High 11/06/2021 [place] (Rigo Rinaldi) Allergy Skin Test Anaphylaxis,Hives,Swelling High 11/06/2021 Hydrocodone Hives,Hallucinations High 11/06/2021 Triticum Aestivum (Whole Wheat) Allergy Skin Test Swelling Medium 11/06/2021 Medications atorvastatin (LIPITOR) 10 MG Tablet Take 10 mg by mouth every morning. Active [place]-3 Fatty Acids (fish oil) 1200 MG Capsule Take 1,200 mg by mouth daily. STOP TAKING 3 DAYS BEFORE SURGERY Active Ivudsx-Upnvu-Fy al Ac-Ca Fructo (Move Free [facility] Advance) Tablet Take by mouth every morning. [...] Comments Blood Pressure 125/69 11/11/2021 9:55 AM MECHANICAL ORDNANCE ASSEMBLER Pulse 59 11/11/2021 9:55 AM MECHANICAL ORDNANCE ASSEMBLER Temperature 35.5 C (95.9 F) 11/11/2021 9:55 AM MECHANICAL ORDNANCE ASSEMBLER Respiratory Rate 16 11/11/2021 9:55 AM MECHANICAL ORDNANCE ASSEMBLER Oxygen Saturation 96% 11/11/2021 9:55 AM MECHANICAL ORDNANCE ASSEMBLER Inhaled Oxygen Concentration - - Weight 88.9 kg (196 lb) 11/11/2021 6:08 AM MECHANICAL ORDNANCE ASSEMBLER Height 167.6 cm (5' 6) 11/11/2021 6:08 AM MECHANICAL ORDNANCE ASSEMBLER Body Mass Index 31.64 11/11/2021 6:08 AM MECHANICAL ORDNANCE ASSEMBLER Plan of Treatment Health Maintenance Due Date [...] this topic Medical Devices Implanted Type Area Oyster Tonger Device Identifier Shelf Expiration Date Model / Serial / Lot Easyclip Staple [id number] - [id number] Implanted:Qty: 1 on 11/11/2021 by Magdi Salas, DPM at [facility] IMPLANT Left: Toe Ling Orthopedic 08/16/2026 [id number] / [id number] / [id number] Screw Bone 3mm 20mm 5mm Asnis Ti Micro Rvrs Cut Flute Foot Hand Self Cut Viraj Clr Cd Loprfl Head Ns - [id number] Implanted:Qty: 1 on 11/11/2021 by Magdi Salas, DPM at [facility] IMPLANT Left: Toe LING [id number] / [id number] / [id number] Insurance [employer] Care Teams Body Joiner Relationship Specialty Start Date End Date Nadir Graham, HAM TRIMMER, AIRCRAFT LAYOUT WORKER [address] [place] [address] PCP - General Certified Nurse Practitioner 11/09/21
--- OUTSIDE RECORDS SUMMARY | 2025-07-11 01:33 | XMS_ITS | Data Portability ---
Author Organization [facility] [place] Address [address] [place] [address] Assessment Encounter Date Assessment Date Assessment LastModified by Organization Details LastModified Time 07/11/2020 07/11/2020 Annual gynecological exam performed. Patient will come back in a year unless there are new symptoms. [email or web address] Not available 07/11/2020 15:04:33 07/13/2021 07/13/2021 Annual gynecological exam performed. Patient will come back in a year unless there are new symptoms. Not available 07/13/2021 10:38:48 07/16/2022 07/16/2022 Annual gynecological exam performed. Patient will come back in a year unless there are new symptoms. [email or web address] Not available 07/16/2022 12:43:14 08/08/2024 08/08/2024 Annual gynecological exam performed. Patient will come back in a year unless there are new symptoms. [email or web address] Not available 07/25/2024 11:33:34 Plan of Treatment Reminders Order Date Submit Date Provider Last Modified By Organization Details Last Modified Time Details Appointments [facility] 2024 08:30A M SERENITY LIPSCOMB, JACOBY Not available Not available Not available Lab pap, IG + HR HPV - HPV regardles s but if HPV is positive need subtyping 16,18/45 2023 024 [facility] (Lab), [address], [place], [address], 08/14/2024 21:38:43 Referral urogyneco logist referral 2019 020 RONY Naranjo MD, [address], [address], [place], [address], 11/22/2021 05:01:08 Procedures None recorded. Surgeries None recorded. Imaging MAMMO, screening , digital, bilateral 2023 024 RONY [facility], [address], [address], [place], [address], 02/17/2025 05:01:36 Medication Orders None recorded. Patient TargetsNo targets recorded. Patient Instructions Encounter Date Encounter Id Patient Instructions Last Modified By Organization Details Last Modified Time 07/11/2020 [email or web address] Not available 16:11:22 Reason for Referral Urogynecologist Referral for Increased frequency of urination Referring Physician: Rosanna Davila, FLATBED DRIVER, Encounter Date: 07/11/2020 Results Created Date Observation Date Name Description Value Unit Range Abnormal Flag Note LastModifiedBy Organization Detail LastModifiedTime 08/08/20 24 08/08/2024 IMAGE GUIDE D PAP AND HPV REGAR DLESS image guided Pap, HPV regardless of Pap result SEE RESULT S BELOW CASE REPOR T: Cytol ogy Gynec ologi mickie Repor t Case: [id number] Autho naun g Provi paulina: Dermo dy, Serenity , ANP, PURCHASING ASSISTANT Colle cted: 08/08 1017 Order ing Locat ion: [place] [facility] Recei shelton: 08/09 0613 First Scree n: Sherm an, Libby Speci men: Scree liyah Pap - Image d, Cervi x STATE MENT OF ADEQU ACY: Satis facto ry for evalu ation Trans forma tion zone compo nent canno t be defin itive ly ident ified due to the prese nce of atrop hy or other hormo nal mann es ----- ----- ----- ----- ----- ----- ----- ----- ----- ----- ----- ----- ----- ----- ----- ----- ----- ---- FINAL DIAGN OSIS: Negat sachi for Intra epith elial Lesio luana or Neha hamm (NIL) . Atrop hic cell ashlie rn. Elect gardenia flaherty d by Libby Kenyon on 08/14 at 8:35 PM ----- ----- ----- ----- ----- ----- ----- ----- ----- ----- ----- ----- ----- ----- ----- ----- ----- ---- HPV RESUL TS: HPV mRNA E6/E7 : No HPV mRNA Detec antwan NOTE: This high risk HPV mRNA assay detec ts fourt een high- risk HPV types (16, 18, 31, 33, 35, 39, 45, 51, 52, 56, 58, 59, 66, 68) witho ut diffe renti ation . COMME NT: Slide scree marinanolan oliveira due to rejec tion by the Thinp rep Imagi ng Syste m. CLINI MICKIE INFOR MATIO N: Menst rual Statu s: LMP (if appli cable ): Clini mickie Histo ry/Pr eviou s Pap: Type of Neopl philippe (if appli cable ): Signi fican t Clini mickie Findi ngs: Other Histo ry: Hormo sy (if appli cable ): PAP EDUCA RICKIE L NOTE: The Pap Test is a scree liyah test with an inher ent false negat sachi rate. Liqui d-bas ed sampl ing may decre ase, but will not elimi sandi, false negat sachi resul ts. A negat sachi resul t does not precl ude the prese nce and/o r devel opmen t of disea se, since the prese nce of abnor mal cells in the sampl e depen ds on the locat ion of the lesio n and sampl ing techn ique. Mathieu nued regul ar scree liyah is the best metho d of cance r preve ntion . If repor antwan cytol ogic findi ng do not corre late with physi mickie and/o r histo rical findi ngs, peewee perez tigat ion is recom rusty d, as clini mary esparza nted. Not Available [facility] (Lab) [address], [place], [address], 08/14/2024 21:38:43 07/23/20 20 07/23/2020 MAMMO , scree liyah, bilat eral No observ ation record ed. lydia Not Available 2019 10:10:58 09/25/20 21 09/25/2021 MAMMO , scree liyah, bilat eral No observ ation record ed. lydia [address] [place], [address], 09/28/2021 14:31:34 05/02/20 23 05/02/2023 MAMMO , scree liyah, bilat eral No observ ation record ed. RONY [address] [place], [address], 01/06/2024 00:43:02 Result Notes None recorded. Problems Name Problem SNOMED Code Status Onset Date Resolution Date Notes Provider Name and Address Organization Details Recorded Time Screenin g for malignan t neoplasm of rectum Completed 201007/13/2021 Screening for malignant neoplasms of the rectum;Pr actice ID: [id number] [facility] 10[facility]29:52 Screenin g for malignan t neoplasm of cervix Completed 201007/13/2021 Pap Smear;Pra ctice ID: 0001 Ana María carr [facility] 10:29:51 Speciali zed medical examinat ion Completed 201307/13/2021 Gynecolog ical Examinati on;Record ed Elsewhere : No Locati on: [facility] Source: EHR Chron ic: N Practic e ID: 0001 Bill able Time: 10:00:00 AM Ana María [facility] 10:30:00 Microsco pic hematuri a [id number] Completed 201307/13/2021 HEMATURIA MICROSCOP IC;Practi ce ID: 0001 Ana María [facility] 10:29:47 Adult health examinat ion Completed 201407/13/2021 Routine general medical examinati on at a health care facility; Practice ID: 0001 Ana María Merritt [facility] 10:29:40 Leukocyt osis [id number] Completed 201407/13/2021 LEUKOCYTO SIS NOS;Pract ice ID: [address] [facility] 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 10:29:[address] Concept Completed 201707/13/2021 Well woman check w/ abnormal finding;R ecorded Elsewhere : No Locati on: [facility] So urce: EHR Chron ic: N Practic e ID: 0001 Bill able Time: 09:30:00 AM Ana María Merritt [facility] 10:29:[address] Concept Completed 201707/13/2021 Encntr for general adult medical exam w/o abnormal findings; Recorded Elsewhere : No Locati on: [facility] So urce: EHR Chron ic: N Practic e ID: 0001 Bill able Time: 09:30:[address] [facility] 10:29:[address] Concept Completed 201707/13/2021 Encounter for general adult medical exam w abnormal findings; Practice ID: [id number] Ana María [facility] 10:29:49 Micturit ion finding Completed 201707/13/2021 Urinary incontine nce;Recor ded Elsewhere : No Locati on: [facility] So urce: EHR Chron ic: N Practic e ID: 0001 Bill able Time: 09:30:00 AM Ana María carr [facility] 10:29:42 Evaluati on finding Completed 201807/13/2021 Hematuria , unspecifi ed;Record ed Elsewhere : No Locati on: [facility] So urce: EHR Chron ic: N Practic e ID: 0001 Bill able Time: 09:30:00 AM Ana María carr [facility] 10:29:44 Problem Notes None recorded. Procedures Surgical History Date Name Laterality Status Provider Name and Address Organization Details Recorded Time 05/02/20 23 Date of Last Mammogram completed [facility] 07/25/2024 11:35:00 10/01/20 22 completed [facility] 08/08/2024 10:16:43 10/17/19 22 Date of Last Colonoscopy completed [facility] 08/08/2024 10:20:27 12/06/19 17 Date of Last Pap Smear completed [facility] 07/13/2021 10:39:46 10/17/18 99 Partial Hysterectomy completed [facility] 07/13/2021 10:46:42 excision of bunion completed Melanie Rolle [facility] 07/11/2020 15:07:39 procedure on knee completed [facility] 08/08/2024 10:21:25 Colonoscopy completed Melanie Humphreys [facility] 07/11/2020 15:07:57 Thyroid Surgery completed Melanie Rolle [facility] 07/11/2020 15:08:02 Imaging Results None recorded. Procedure Notes None recorded. Medical Equipment None Reported. Allergies No known drug allergies Medications Name Sig Start Date Stop Date Status Note LastModified by Organization Details LastModified Time Nasal [place] (oxymetaz oline) 0.05 % spray 2 spray by intranas al route 2 times every day in each nostril in the morning and evening active Prescrib ed Elsewher e: Yes Loca tion: [facility] odify By: juan lamar DateTime : 09/20/20 11 10:00:00 AM Not Available Not Available Not Available promethaz ine-DM 6.25 mg-15 mg/5 mL oral syrup TAKE 5 ML BY MOUTH EVERY 4 TO 6 HOURS NEEDED FOR COUGH 08/08 completed Not Available Not Available Not Available clindamyc in HCl 300 mg capsule TAKE 2 CAPSULES BY MOUTH 1 HOUR PRIOR TO APPOINTM ENT 07/13 completed Not Available Not Available Not Available trazodone 50 mg tablet TAKE 1/2 TO 1 TABLET BY MOUTH EVERY DAY AT BEDTIME NEEDED FOR PAIN active Not Available Not Available No t Available atorvasta tin 10 mg tablet TAKE 1 TABLET BY MOUTH DAILY active Not Available Not Available No t Available azithromy sanjay 250 mg tablet TK 2 TS PO ON DAY 1, THEN TK 1 T PO D FOR 4 DAYS 08/08 completed Not Available Not Available Not Available benzonata te 200 mg capsule TAKE 1 CAPSULE BY MOUTH THREE TIMES DAILY NEEDED FOR COUGH active Not Available Not Available No t Available prednison e 20 mg tablet TAKE 1 TABLET BY MOUTH DAILY 08/08 completed Not Available Not Available Not Available phentermi ne 37.5 mg tablet TAKE 1 TABLET BY MOUTH DAILY 30 MINUTES BEFORE OR 1 TO 2 HOURS AFTER BREAKFAS T active Not Available Not Available No t Available ciproflox acin 500 mg tablet TAKE 1 TABLET BY MOUTH TWICE DAILY 08/08 completed Not Available Not Available Not Available sulfameth oxazole 800 mg-trimet hoprim 160 mg tablet TAKE 1 TABLET BY MOUTH TWICE A DAY 07/16 completed Not Available Not Available Not Available tramadol 50 mg tablet TAKE 1 TABLET BY MOUTH TWICE A DAY 08/08 completed Not Available Not Available Not Available triamcino lone acetonide 0.1 % topical cream APPLY TOPICALL Y TO THE AFFECTED AREA TWICE DAILY NEEDED FOR RASH active Not Available Not Available No t Available Macrobid 100 mg capsule take 1 capsule (100MG) by oral route every 12 hours with food 01/27 completed Prescrib ed Elsewher e: No Locat ion: [facility] odify By: cmedical Encount er DateTime : 01/19/20 14 10:07:01 AM Not Available Not Available Not Available levothyro xine 100 mcg tablet TAKE 1 TABLET BY MOUTH DAILY active Not Available Not Available No t Available amoxicill in 875 mg tablet TAKE 1 TABLET BY MOUTH EVERY 12 HOURS FOR 10 DAYS 08/08 completed Not Available Not Available Not Available famotidin e 20 mg tablet TAKE 1 TABLET BY MOUTH TWICE DAILY active Not Available Not Available No t Available levothyro xine 50 mcg tablet take 1 tablet by oral route every day 07/13 completed Prescrib ed Elsewher e: Yes Loca tion: [facility] odify By: joceline kauruntgrazyna DateTime : 02/21/20 19 09:30:00 AM Not Available Not Available Not Available cephalexi n 500 mg capsule TAKE 1 CAPSULE BY MOUTH THREE TIMES A DAY FOR 7 DAYS 07/16 completed Not Available Not Available Not Available monteluka st 10 mg tablet TAKE 1 TABLET BY MOUTH DAILY active Not Available Not Available No t Available albuterol sulfate HFA 90 mcg/actua tion aerosol inhaler INHALE 2 PUFFS BY MOUTH EVERY 4 TO 6 HOURS NEEDED active Not Available Not Available No t Available niacin ER 125 mg capsule,e xtended release take 1 capsule by oral route 3 times every day with meals 07/13 completed Prescrib ed Elsewher e: Yes Loca tion: [facility] odify By: juan kauruntgrazyna DateTime : 09/20/20 11 10:00:00 AM Not Available Not Available Not Available amoxicill in 875 mg-potass ium clavulana te 125 mg tablet TAKE 1 TABLET BY MOUTH EVERY 12 HOURS 08/08 completed Not Available Not Available Not Available Vitamins and Minerals tablet active Prescrib ed Elsewher e: Yes Loca tion: [facility] odify By: juan lamar DateTime : 09/20/20 11 10:00:00 AM Not Available Not Available Not Available Singulair 4 mg oral granules in packet 07/16 completed Prescrib ed Elsewher e: Yes Loca tion: [facility] odify By: juan lamra DateTime : 09/20/20 11 10:00:00 AM Not Available Not Available Not Available levothyro xine 07/13 completed Not Available Not Available Not Available Lipitor 07/13 completed Not Available Not Available Not Available niacin 07/11 completed Not Available Not Available Not Available Singulair 07/13 completed Not Available Not Available Not Available Zyrtec 07/13 completed Not Available Not Available Not Available Vitamin And Mineral 07/13 completed Not Available Not Available Not Available Zyrtec 10 mg capsule active Prescrib ed Elsewher e: Yes Loca tion: [facility] odify By: juan lamar DateTime : 09/20/20 11 10:00:00 AM Not Available Not Available Not Available Nasal Allergy 07/13 completed Not Available Not Available Not Available fluticaso ne 113 mcg-salme terol 14 mcg/actua tion breath activated powdr INHALE 1 PUFF BY MOUTH EVERY 12 HOURS active Not Available Not Available No t Available Lagevrio 200 mg capsule (EUA) TAKE 4 CAPSULES BY MOUTH EVERY 12 HOURS FOR 5 DAYS 08/08 completed Not Available Not Available Not Available Vitals Date Recorded Body height Body mass index (BMI) Body weight Systolic And Diastolic Provider Name and Address Organization Details Last Updated DateTime 07/11/2020 167.64 cm 32.4 kg/m2 27848.07 g 117/73 mm[Hg] Melanie FOY - [facility] 07/11/2020 15:15:20 Date Recorded Body height Body mass index (BMI) Body weight Systolic And Diastolic Provider Name and Address Organization Details Last Updated DateTime 07/13/2021 165.1 cm 34.4 kg/m2 38397.62 g 108/69 mm[Hg] Ana María Merritt [facility] 07/13/2021 10:39:14 Date Recorded Systolic And Diastolic Provider Name and Address Organization Details Last Updated DateTime 07/16/2022 122/72 mm[Hg] Rosanna Davila, [facility]- [address], [place], [address], [facility] 07/16/2022 13:47:43 Date Recorded Body height Body weight Provider Name and Address Organization Details Last Updated DateTime 07/16/2022 165.1 cm 67689.81 g Ana María [facility] 07/16/2022 12:53:02 Date Recorded Body height Body mass index (BMI) Body weight Systolic And Diastolic Provider Name and Address Organization Details Last Updated DateTime 08/08/2024 165.1 cm 29.3 kg/m2 74620.98 g 116/74 mm[Hg] Elisa Lopez [facility] 08/08/2024 10:16:39 Social History Question Answer Notes LastModified by Organizat ion Details LastModified Time Tobacco Smoking Status Never Smoker Ana María [facility] 07/16/2022 12:51:11 Do You Have An Advance Directive? No Information n ot available 07/13/2021 How Many Years Have You Consumed Alcohol? 15 Information not available 07/13/2021 Are You Blind Or Do You Have Difficulty Seeing? No Information n ot available 07/13/2021 What Is Your Level Of Caffeine Consumption? Moderate Information not available 07/13/2021 How Much Tobacco Do You Chew? None Information not available 07/13/2021 In The 14 Days Before Symptom Onset, Have You Had Close Contact With A Laboratory-confirm ed COVID-19 While That Case Was Ill? No Information n ot available 07/13/2021 In The 14 Days Before Symptom Onset, Have You Had Close Contact With A Person Who Is Under Investigation For COVID-19 While That Person Was Ill? No Information not available 07/13/2021 Have You Been To An Area Known To Be High Risk For COVID-19? No Information not available 07/13/2021 Are You Deaf Or Do You Have Serious Difficulty Hearing? No Information not available 07/13/2021 What Type Of Diet Are You Following? REGULAR Information n ot available 07/13/2021 What Is The Highest Grade Or Level Of School You Have Completed Or The Highest Degree You Have Received? [id number] Information not available 07/16/2022 Are There Any Guns Present In Your Home? Yes Information not available 07/13/2021 Do You Use Protection During Sex? No Information not available 07/13/2021 Do You Use Your Seat Belt Or Car Seat Routinely? Yes Information not available 07/13/2021 Do You Have Smoke And Carbon Monoxide Detectors In Your Home? Yes Information not available 07/13/2021 How Much Tobacco Do You Smoke? No Information not available 07/16/2022 Do You Use Sunscreen Routinely? Yes Information not available 07/16/2022 Have You Used IV Drugs? No Information not available 07/13/2021 Sex: Unknown Functional Status Question Answer Note LastModified by Organizat ion Details LastModified Time Do you use any illicit or recreational drugs? No Information not available 07/13/2021 What is your level of alcohol consumption? Occasional Information not available 07/13/2021 Are you able to walk independently without assistance or assistive devices? YESWOREST Information not available 07/13/2021 What is your occupation? retired Information not available 07/13/2021 What is your exercise level? Moderate Information not available 07/13/2021 Mental Status Question Answer Note LastModified by Organization D etails LastModified Time Do you feel stressed (tense, restless, nervous, or anxious, or unable to sleep at night)? [id number] Information not available 07/13/2021 Family History Relationship Description Onset Age of this Age Resolved Age Notes LastModified by Organization Details LastModified Time Maternal Grandfather Diabetes mellitus [email or web address] Not available 2019 15:06:48 Maternal Grandfather Malignant neoplasm of bone [email or web address] Not available 2023 10:09:01 Maternal Grandmother Coronary arterioscler osis [email or web address] Not available 2023 10:09:01 Mother Coronary arterioscler osis [email or web address] Not available 2023 10:09:01 Mother Hypertensive disorder [email or web address] Not available 2019 15:07:21 Mother Malignant neoplasm of lung Not available 2020 10:46:08 Father Toxic emphysema [email or web address] Not available 2023 10:09:01 Father Chronic obstructive pulmonary disease [email or web address] Not available 2023 10:09:01 Medical History Condition Response History of abnormal pap Y Anemia Y Asthma Y Gynecological History Statement/Question Response Abnormal Pap N Date of Last Mammogram 05/02/2023 Date of LMP 10/17/1998 N On BCP's at Conception? N STIs/STDs N Was last menstrual period normal N HPV Vaccine N Duration of Flow (days) 5 Current Control Method Hysterectom y Age at First Child 28 Date of Last Colonoscopy 10/17/2021 Frequency of Cycle (Q days) 30 Sexually Active? Y Menses Monthly N Age of first menstrual cycle 14 Date of Last Pap Smear 12/06/2016 Sexual Problems? N LMP Unknown Desired Control Method Hysterectom y 10/01/2022 N Obstetrics History GPAL:G 2 P 0 0 0 2 Type Value Living 2 Total 2 Past Encounters Encounter ID Performer Location Encounter Start Date Encounter Closed Date Diagnosis/Indication Diagnosis SNOMED-CT Code Diagnosis ICD10 Code Diagnosis IMO Codes Diagnosis Note [id number] [address] [address] 07/11/2020 15:02:06 07/11/2020 16:26:48 Gynecologic examination [id number] Z01.419 Take Calcium with Vitamin D 12-1500mg daily. Do monthly self breast exams. It is advised to get annual flu shot in the fall and she could obtain at [facility] or [facility] clinic. If you haven't received the Tdap vaccine in the last 10 years you should obtain one as well. Have mammogram yearly, bone density every 2-3 years and colonoscop y every 5-10 years depending on findings and history. Engage in daily exercise of low impact aerobic exercise 45-60 minutes 4-5 times weekly. Avoid tobacco and illicit drugs as well as using moderation with alcohol intake less than 1-2 8 oz beverages daily. This lifestyle behavior pattern will lead to less health conditions and longer life span. If BMI greater than 25 weight watchers or dietary consult advised. Questions have been answered. Patient appears to understand instructio ns, but if you have any further questions call or respond to this email Hx of partial hyst for menorrhagi a & voices abn cervical cells were found after sent to pathology. This was in 1998. She has had wnl pap/hpv since this time with her last pap/hpv of vag cuff completed 2017 wnl. We opted to defer this year per asccp guidelines since she is with the same partner >30=yrs; and no abn pap since hyst. No issues or complaints Mammo wnl Increased frequency of urination [id number] R35.0 R31.29 Patient states she is looking for a new urologist or urogyn to manage UUI/micros copic hematuria which is said to be wnl. Referral ordered. [id number] Rosanna Davila , [facility] [address] [address] 07/13/2021 10:17:08 07/13/2021 11:28:13 Gynecologic examination [id number] Z01.419 Take Calcium with Vitamin D 12-1500mg daily. Do monthly self breast exams. It is advised to get annual flu shot in the fall and she could obtain at [facility] or [facility] take care clinic. If you haven't received the Tdap vaccine in the last 10 years you should obtain one as well. Have mammogram yearly, bone density every 2-3 years and colonoscop y every 5-10 years depending on findings and history. Engage in daily exercise of low impact aerobic exercise 45-60 minutes 4-5 times weekly. Avoid tobacco and illicit drugs as well as using moderation with alcohol intake less than 1-2 8 oz beverages daily. This lifestyle behavior pattern will lead to less health conditions and longer life span. If BMI greater than 25 weight watchers or dietary consult advised. Questions have been answered. Patient appears to understand instructio ns, but if you have any further questions call or respond to this email Hx of partial hyst for menorrhagi a was in 1998. She has had wnl pap/hpv since this time with her last pap/hpv of vag cuff completed 2017 wnl. We opted to defer this year per asccp guidelines since she is with the same partner >30=yrs; and no abn pap since hyst. No issues or complaints Mammo ordered See's urologist for urinary urgency-ge t's botox in bladder [id number] Rosanna Davila , [facility] [address] [address] 07/16/2022 12:36:50 07/16/2022 16:28:15 Gynecologic examination [id number] Z01.419 Take Calcium with Vitamin D 12-1500mg daily. Do monthly self breast exams. It is advised to get annual flu shot in the fall and she could obtain at [facility] or [facility] care clinic. If you haven't received the Tdap vaccine in the last 10 years you should obtain one as well. Have mammogram yearly, bone density every 2-3 years and colonoscop y every 5-10 years depending on findings and history. Engage in daily exercise of low impact aerobic exercise 45-60 minutes 4-5 times weekly. Avoid tobacco and illicit drugs as well as using moderation with alcohol intake less than 1-2 8 oz beverages daily. This lifestyle behavior pattern will lead to less health conditions and longer life span. If BMI greater than 25 weight watchers or dietary consult advised. Questions have been answered. Patient appears to understand instructio ns, but if you have any further questions call or respond to this email Pap/hpv USPSTF recommends against screening for cervical cancer in women older than 65yo, those who've had a hysterecto my for non-cancer indication s, & who have had adequate prior screening & are not otherwise at high risk for cervical cancer. STD Screen declinedGe netic Screen discussedC olon Screen PCPDexa Screen PCPRoutine Labs PCPMammo ordered RTO q2yrs unless otherwise indicated for pelvic check/CBE. Mammo screenings can be ordered by PCP as well as other routine screenings (i.e. colon/dexa ) [id number] Chris Kapoor MD [facility] [address] [address] 08/08/2024 10:08:14 08/08/2024 11:10:10 Gynecologic examination [id number] Z01.419 Annual gynecologi mickie exam performed. Patient will come back in a year unless there are new symptoms. Suggest Calcium with Vitamin D if not eating in diet. Patient advised to get annual flu shot. Recommend yearly physicals and perform monthly breast exams. Genetic testing is available for patients with family history of cancer. Engage in safe sexual practices, use condoms. Encouraged to have daily exercise. Avoid tobacco and illicit drugs, moderation of alcohol. If BMI greater than 25 dietary consult advised. If you have any questions please call or email. mammogram- pt has scheduled at [facility] in September 2024. Order given colon cancer screening - WNL (2021 - WN) DEXA scan- n/a Pap smear - pap w/hpv collected today laboratory evaluation - PCP STI testing - declined Screening mammography 24 [id number] Z12.31 Health Concerns Section Related Observation LastModified by Organization Detai ls LastModified Time None Recorded Concern Status LastModified by Organization Details LastModified Time None Recorded Advance Directives Directive N: Payers Insurance Date Sequence Insurance Name Policy Number Policy Munoz Covered Member ID Munoz Member ID Guarantor Name 08/14/2024 1 [employer] [id number] Starr Wahl [id number] Starr Wahl 06/12/2024 1 [facility] [id number] Starr Wahl [id number] Starr Wahl Notes Date Note Type Note Provider Name and Address Organization Details Recorded Time 0 text/html Annual GYNReported by PatientHistoryFor history, patient reportsno gynecologic complaints.Genitourinary symptomsFor menstrual cycle, patient reportsnormal menses. For urinary symptoms, patient reportsno hematuriaandno incontinence. For vulva, patient reportsno genital lesion. For vagina, patient reportsnormal vaginal discharge.Breast symptomsFor breast, patient reportsno breast pain,no breast lump, andno nipple discharge.Endocrine symptomsFor sexual complaints, patient reportsno sexual complaints,no pain during intercourse, andnormal libido. For menopausal symptoms, patient reportsno menopausal symptomsandnormal vaginal lubrication.Psychological symptomsFor psychological symptoms, patient reportsno depression,no anxiety, andno pmdd.Preventative measuresFor preventive measures, patient reportsencourage self breast examination,encourage regular exercise,encourage no tobacco use,encourage regular mammograms starting age 40,mammogram performed within the past year, andup to date on colonoscopy screening. Partial hyst for menorrhagia & voice they found some abn cervical cells. This took place in 1998. Her pap/hpv has been wnl since this time per pt. Rosanna Davila [facility] [address], [place], [address], [facility] 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 For vaginal bleeding, patient reportshistory of menopause having occurredandno history of post menopausal bleeding. For urinary symptoms, patient reportsno hematuria,no incontinence,no nocturia, andno urinary frequency. For vulva, patient reportsno genital lesionandno vulvar atrophy. For vagina, patient reportsnormal vaginal dischargeandno vaginal atrophy.Breast symptomsFor breast, patient reportsno breast lump,no nipple discharge, andno breast pain.Psychological symptomsFor sexual complaints, patient reportsno sexual complaints. For psychological symptoms, patient reportsno depressionandno anxiety.Preventative measuresFor preventive measures, patient reportsencourage regular mammograms starting age 40,encourage self breast examination,encourage regular exercise,encourage no tobacco use,needs to schedule mammogram, andhistory of recent colonoscopy. Rosanna Davila [facility] [address], [place], [address], [facility] 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 For vaginal bleeding, patient reportshistory of menopause having occurredandno history of post menopausal bleeding. For urinary symptoms, patient reportsno hematuria,no incontinence,no nocturia, andno urinary frequency. For vulva, patient reportsno genital lesionandno vulvar atrophy. For vagina, patient reportsnormal vaginal dischargeandno vaginal atrophy.Breast symptomsFor breast, patient reportsno breast lump,no nipple discharge, andno breast pain.Psychological symptomsFor sexual complaints, patient reportsno sexual complaints. For psychological symptoms, patient reportsno depressionandno anxiety.Preventative measuresFor preventive measures, patient reportsencourage regular mammograms starting age 40,encourage self breast examination,encourage regular exercise,encourage no tobacco use,needs to schedule mammogram, andhistory of recent colonoscopy. Rosanna Davila, [facility]- [address], [place], [address], [facility] 07/16/2022 14:08:00 4 text/html Annual GYNReported by PatientHistoryFor history, patient reportsno gynecologic complaints.Genitourinary symptomsFor urinary symptoms, patient reportsno hematuriaandno incontinence. For vulva, patient reportsno genital lesion. For vagina, patient reportsnormal vaginal discharge. For menstrual cycle, (hyst).Breast symptomsFor breast, patient reportsno breast pain,no breast lump, andno nipple discharge.Endocrine symptomsFor sexual complaints, patient reportsno sexual complaints,no pain during intercourse, andnormal libido. For menopausal symptoms, patient reportsno menopausal symptomsandnormal vaginal lubrication.Psychological symptomsFor psychological symptoms, patient reportsno depression,no anxiety, andno pmdd.Preventative measuresFor preventive measures, patient reportsencourage self breast examination,encourage regular exercise,encourage no tobacco use,encourage regular mammograms starting age 40,needs to schedule mammogram, andup to date on colonoscopy screening. Patient presents for annual well woman exam. Patient denies concerns today. SERENITY LIPSCOMB NP [address], [place], [address], [facility] 08/08/2024 11:05:30 OBGyn Episode Ob Episode Information Episode Created Date Number of Fetuses Patient Bloodtype Patient rh Status Prepregnancy Weight lbs Domestic Partner Domestic Partner Phone Father Name Supervisory Clerk Status 07/11/20 20 1 CLOSED Fetus Data First Name Last Name Admitted to NICU Weight (g) Sex Living Outcome Pediatric Complications Fetus ID Race Codes Race Delivery Type [id number] Vaginal Delivery Lemuel Calculation Initial Lemuel Date Initial Exam Date Initial Exam Provider Initial Ultrasound Date Last Menstrual Period Date Ultra Sound Weeks Gestation 0 Eighteen To Twenty Week Lemuel Update Ultra Sound Date Fundal Height At Umbil Quickening Date Ultra Sound Latest Weeks Gestation Final Lemuel Confirmed By Final Lemuel Confirmed Date Final Lemuel Date Ultra Sound Latest Days Gestation 0 0 Menstrual History Last Menstrual Date Menses Monthly On Bcp Conception Prior Menses Frequency Hcg Plus Date Menarche Onset Age Delivery Information Delivery Date Delivery Type Labor Anesthesia Weeks Gestation Incision Type Labor Labor Length Hrs Delivered By Post Complications Tubal Sterilization Discharge Date Comments 9 Discharge Information Feeding Method Contraceptive Method Maternal HG B and HCT Levels Ob Episode Information Episode Created Date Number of Fetuses Patient Bloodtype Patient rh Status Prepregnancy Weight lbs Domestic Partner Domestic Partner Phone Father Name Supervisory Clerk Status 07/11/20 20 1 CLOSED Fetus Data First Name Last Name Admitted to NICU Weight (g) Sex Living Outcome Pediatric Complications Fetus ID Race Codes Race Delivery Type [id number] Vaginal Delivery Lemuel Calculation Initial Lemuel Date Initial Exam Date Initial Exam Provider Initial Ultrasound Date Last Menstrual Period Date Ultra Sound Weeks Gestation 0 Eighteen To Twenty Week Lemuel Update Ultra Sound Date Fundal Height At Umbil Quickening Date Ultra Sound Latest Weeks Gestation Final Lemuel Confirmed By Final Lemuel Confirmed Date Final Lemuel Date Ultra Sound Latest Days Gestation 0 0 Menstrual History Last Menstrual Date Menses Monthly On Bcp Conception Prior Menses Frequency Hcg Plus Date Menarche Onset Age Delivery Information Delivery Date Delivery Type Labor Anesthesia Weeks Gestation Incision Type Labor Labor Length Hrs Delivered By Post Complications Tubal Sterilization Discharge Date Comments 0 Discharge Information Feeding Method Contraceptive Method Maternal HG B and HCT Levels
--- OUTSIDE RECORDS SUMMARY | 2025-07-11 01:33 | XMS_ITS | Encounter Summary ---
Author Organization [facility] Address [address] [place] [address] Phone Care Team Providers Care Radiotelephone Technical Operator Name Role Phone Nadir Graham APRN, JAS Primary Care Provider Reason for Referral * Radiology Services (Routine) - Closed Specialty Diagnoses / Procedures Referred By Contac t Referred To Contact Radiology Diagnoses Pre-op testing Procedures EKG 12 LEAD Benigno Aceves APRN, CRNA #1 [place] [address] Phone: tel: fax: Referral ID Status Reason Start Date Expiration Date Visits Re quested Visits Authorized [id number] Closed 11/06/2021 1 1 TRY AND FISH BUTCHER Encounter Details Date Type Department Care Team (Late st Contact Info) Description 11/06/2021 Transcribe Orders [facility] Preop/Pacu II [address] [place] [address] Benigno Aceves APRN, PASCALE #[address] [place] [address] Pre-op testing (Primary Dx) Social History Tobacco [...] COVID-19? No / Unsure 11/09/2021 10:29 AM POULTRY AND [employer] BUTCHER documented as of this encounter Plan of Treatment Not on file documented as of this encounter Results * EKG 12 LEAD (11/09/2021 11:00 AM POULTRY AND FISH BUTCHER) Ventricular Rate BPM EXTERNAL EKG Atrial Rate BPM EXTERNAL EKG P-R Interval 148 ms EXTERNAL EKG QRS Duration 98 ms EXTERNAL EKG Q-T Duration 404 ms EXTERNAL EKG QTC CALCULATION 430 ms EXTERNAL EKG P [place] 69 degrees EXTERNAL EKG R [place] -48 degrees EXTERNAL EKG T [place] 64 degrees EXTERNAL EKG 11/09/2021 11:0 0 AM POULTRY AND [employer]CHER Impressions EXTERNAL EKG - 11/10/2021 9:44 AM POULTRY AND [employer] BUTCHER Sinus rhythm Left anterior fascicular block rSr'(V1) - probable normal variant Comparison Summary: No serial comparison made Summary: Borderline ECG Confirmed by Sangeetha Moreau [id number] on 11/10/2021 9:44:17 AM Narrative Procedure Note Deborah Vivas MD - 11/10/2021 IMPRESSION: Sinus rhythm Left anterior fascicular block rSr'(V1) - probable normal variant Comparison Summary: No serial comparison made Summary: Borderline ECG Confirmed by Sangeetha Moreau [id number] on 11/10/2021 9:44:17 AM us Benigno Clevelandatzke FRONT SERVICES AGENT, DIRECTOR OF REHABILITATIVE SERVICES IMG ECG ORDERABLES Final Result EXTERNAL EKG * SARS-COV-2 BY MOLECULAR (11/09/2021 10:43 AM POULTRY AND FISH BUTCHER) SARSCOV2 NOT DETECTED (Referen ce Range for this test is Not Detected ) [facility] THERMOFISHER FAST DX 11/10/2021 8:06 AM POULTRY AND FISH BUTCHER [facility] Comment:This test was perfor med by a RT-PCR method. Other NASAL STRUCTURE / Unknown Non-Phlebotomy Collection / Unknown 11/09/2021 10:43 AM POULTRY AND FISH BUTCHER 11/09/2021 11:09 AM POULTRY AND FISH BUTCHER Narrative [facility] - 11/10/2021 8:06 AM POULTRY AND FISH BUTCHER Authorized Fact Sheets about this test for providers and patients are available at: https://www.fda.gov/medical-devices/pjqacrdve-qhfopmnade-uokvkbk-devices/emergen -us e-authorizations Benigno Aceves APRN, CRNA MICROBIOLOGY - GEN ERAL ORDERABLES Final Result Performing Organization Address City/[facility]/ZIP Co de Phone Number [facility] [address] [place] [address], * HEMOGLOBIN & HEMATOCRIT (H&H) (11/09/2021 10:43 AM POULTRY AND FISH BUTCHER) HEMOGLOBIN (HGB) 14.2 12.0 - 15.8 g/dL 11/09/2021 11:12 AM POULTRY AND FISH BUTCHER [facility] HEMATOCRIT (HCT) 43.0 36.0 - 47.0 % 11/09/2021 11:12 AM POULTRY AND FISH BUTCHER [facility] Blood Venipuncture / Unknown 11/09/2021 10:43 AM POULTRY AND [employer] BUTCHER 11/09/2021 11:09 AM POULTRY AND FISH BUTCHER Benigno Aceves APRN, CRNA HEMATOLOGY ORDERAB LES Final Result [facility] [address] [place] [address] documented in this encounter Visit Diagnoses Diagnosis Pre-op testing- Primary Preoperative examination, unspecified Pre-op testing Preoperative examination, unspecified documented in this encounter Care Teams Radiotelephone Technical Operator Relationship Specialty Start Date End Date Nadir Graham, ARNULFO, OCCUPATIONAL THERAPY SUPERVISOR [address] [place] [address] [place] [address] PCP - General Certified Nurse Practitioner 11/09/21 documented as of this encounter
--- OUTSIDE RECORDS SUMMARY | 2025-07-11 01:33 | XMS_ITS | Encounter Summary ---
Author Organization [facility] Address [address] [address] Care Team Providers Care Agricultural Purchasing Agent Name Role Phone Unavailable Primary Care Provider Unavailabl e Encounter Details Date Type Department Care Team (Late st Contact Info) Description 09/22/2023 Lab Requisition [facility] - DermPath Lab [address] [place] [address] Ivanna Klein MD [address] [facility] [address] [place] [address] Social History Tobacco Use Types Packs/Day Years Used Date Smoking Tobacco: Never Comments Unknown Sex and Gender Information Value Date Recorded Sex Assigned at Not on file Legal Sex Female 1:54 PM PT ESCORT Gender Identity Not on file Sexual Orientation Not on file documented as of this encounter Plan of Treatment Not on file documented as of this encounter Procedures Procedure Name Priority Date/Time Associated Diagnosis Comments DERMATOPATHOLOGY Routine 09/22/2023 9:34 AM PT ESCORT documented in this encounter Results * DERMATOPATHOLOGY (09/22/2023 9:34 AM PT ESCORT) Case Report Dermatopathology Report Case: [id number] Authorizing Provider: Ivanna Klein MD Collected: 09/22/2023 09:34 AM Ordering Location: [facility] DermPath Lab Received: 09/23/2023 09:51 AM Pathologist: Frances Shay MD Specimen: Skin, left inner eyelid margin 3 1:19 PM [facility] DERMATOPATHOLOGY LABORATORY Final Diagnosis Specimen A. 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 The specimen consists of a shave biopsy measuring 2x2x1 mm. Jar 0. 1:19 PM [facility] DERMATOPATHOLOGY LABORATORY Microscopic Description Specimen A. SKIN, left inner eyelid margin: Within the dermis, there is a space lined by one to several layers of typical epithelial cells that resemble the lining of the normal sweat duct. Additional deeper sections were obtained and reviewed. 1:19 PM [facility] DERMATOPATHOLOGY LABORATORY Disclaimer An external and internal positive and negative controls are appropriate for the histochemical, immunohistochemical and immunofluorescence stain(s) in this case (if any), except where stated explicitly. The performance characteristics of the stain(s) cited in this report were developed and its performance characteristic determined by the Dermatopathology Laboratory at [facility], directed by Dr. Shruti Schilling. These tests need not be, and therefore are not, approved by the [place] Food and Drug Administration. The tests are used for clinical purposes. Billing Codes Specimen Charges Stain Charges 32536 1 3 1:19 PM [facility] DERMATOPATHOLOGY LABORATORY Embedded Images 3 1:19 PM [facility] DERMATOPATHOLOGY LABORATORY Pathology/Cytolo gy TISSUE SPECIMEN FROM SKIN / Unknown 09/22/2023 9:34 AM PT ESCORT 09/23/2023 9:51 AM [facility] us Ivanna Klein MD LAB - PATHOLOGY/CYTOLOGY ORD ERABLES Final Result DERMATOPATHOLOGY LABORATORY [facility] - Department of Dermatology [address], [address] [phone] documented in this encounter Visit Diagnoses Not on filedocumented in this encounter
--- OUTSIDE RECORDS SUMMARY | 2025-07-11 01:33 | XMS_ITS | Encounter Summary ---
Author Organization [facility] Address [address] [place] [address] Care Team Providers Care Horticultural Specialty Grower Name Role Phone Unavailable Primary Care Provider Unavailabl e Encounter Details Date Type Department Care Team (Late st Contact Info) Description 10/30/2024 Lab Requisition [facility] - DermPath Lab [address] [facility] [place] [address] Ivanna Klein MD [address] [facility] [address] [place] [address] Social History Tobacco Use Types Packs/Day Years Used Date Smoking Tobacco: Never Comments Unknown Sex and Gender Information Value Date Recorded Sex Assigned at Not on file Legal Sex Female 1:54 PM [employer] Gender Identity Not on file Sexual Orientation Not on file documented as of this encounter Plan of Treatment Not on file documented as of this encounter Procedures Procedure Name Priority Date/Time Associated Diagnosis Comments DERMATOPATHOLOGY Routine 10/30/2024 11:2 2 AM [employer] documented in this encounter Results * DERMATOPATHOLOGY (10/30/2024 11:22 AM [employer]) Case Report Dermatopathology Report Case: [id number] Authorizing Provider: Ivanna Klein MD Collected: 10/30/2024 11:22 AM Ordering Location: [facility] - Received: 10/31/2024 01:55 PM DermPath Lab Pathologist: Serenity Vinson MD Specimen: Skin, right ala 5 4:13 PM [facility] [[email or web address]] DERMATOPATHOLOGY LABORATORY Final Diagnosis Specimen A. SKIN, right ala: INTRADERMAL MELANOCYTIC NEVUS (D22.39) 5 4:13 PM [facility] [[email or web address]] DERMATOPATHOLOGY LABORATORY at [address] [employer] Clinical History R/O Nevus vs FP vs BCC 4:13 PM [facility] [[email or web address]] DERMATOPATHOLOGY LABORATORY Gross Description Specimen A: Received is one formalin filled container labeled with the patient's name and designated right ala. The specimen consists of a shave biopsy measuring 2 pieces 3x3x1,2x2x1 mm. Jar 0. 4:13 PM [facility] [[email or web address]] DERMATOPATHOLOGY LABORATORY Microscopic Description Specimen A. SKIN, right ala: There are nests of cytologically bland melanocytes within the dermis that mature with depth. 4:13 PM [facility] [[email or web address]] DERMATOPATHOLOGY LABORATORY Disclaimer An external and internal positive and negative controls are appropriate for the histochemical, immunohistochemical and immunofluorescence stain(s) in this case (if any), except where stated explicitly. The performance characteristics of the stain(s) cited in this report were developed and its performance characteristic determined by the Dermatopathology Laboratory at [facility], directed by Dr. Shruti Schilling. These tests need not be, and therefore are not, approved by the [place] Food and Drug Administration. The tests are used for clinical purposes. Billing Codes Specimen Charges Stain Charges 86523 1 4:13 PM [employer] DERMATOPATHOLOGY LABORATORY Embedded Images 4:13 PM [facility] [[email or web address]] DERMATOPATHOLOGY LABORATORY Pathology/Cytolo gy TISSUE SPECIMEN FROM SKIN / Unknown 10/30/2024 11:22 AM [employer] 10/31/2024 1:55 PM [employer] us Ivanna Klein MD LAB - PATHOLOGY/CYTOLOGY ORD ERABLES Final Result DERMATOPATHOLOGY LABORATORY [facility] - Department of Dermatology [address] [place] [address], [facility] [phone] documented in this encounter Visit Diagnoses Not on filedocumented in this encounter
--- OUTSIDE RECORDS SUMMARY | 2025-07-11 01:33 | XMS_ITS | Patient Health Record ---
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 Problem Laryngeal spasm (217574206) Laryngeal spasm (478.75) Active confirmed Encounters Encounter Location Date Provider Diagnosis [facility] [place] [address] [facility] [address] [place], [place] [id number] 09/29/2024 Provider Migration Thyroid nodule 241.0 Assessments Encounter Date Diagnosis (ICD Code) Assessment Notes Treatment Notes Treatment Clinical Notes Section Notes 09/29/2024 Thyroid nodule (ICD9-CM - 241.0) Plan Of Treatment No Information Insurance Providers Payer Name Payer Address Payer Phone Subscriber Number Group Number Insured Name Patient Relationship to Insured Coverage Start Date Coverage End Date [facility] Insurance [facility] [address] [place] [address] [id number] Moisés Wahl Spouse - patient is the [...]
--- OUTSIDE RECORDS SUMMARY | 2025-07-11 01:33 | XMS_ITS | Clinical Summary ---
Author Organization [facility] Address [address] [place] [address] Care Team Providers Care Senior Group Manager Name Role Phone Nadir Graham NP Primary Care Provider [phone] Allergies Active Allergy Reactions Criticality Noted Date Comments Acetaminophen Chocolate Anaphylaxis High 11/06/2021 [place] Pollen Extract Anaphylaxis,Hives,Swelling High 11/06/2021 Hydrocodone Hallucinations,Hives High 11/06/2021 Hydrocodone Hcl Itching Low 05/28/2021 Other Swelling,Unknown Medium 07/01/2014 Medications magnesium oxide (MAG-OX) 415 mg (250 mg elemental) tablet 250 mg. 0 01/26/20 13 Active fluticasone (FLONASE) 50 mcg/actuation nasal spray spray 1 spray by intranasal route every day in each nostril 0 01/26/20 13 Active A41-ttbhsitvxlba calcium-B6 (FOLTX) 2-1.13-25 mg tablet 0 01/26/20 [...] MOUTH TWICE A DAY Active influenza quadrivalent [id number] (Flucelvax Quad ) 60 mcg (15 mcg [...] on file Legal Sex Female 5:11 PM OPTOMECHANICAL ENGINEER Gender Identity Not on file Sexual Orientation Straight 08/28/2020 10 :49 PM OPTOMECHANICAL ENGINEER Obstetrics History Para Term AB IAB SAB Ectopic Multiple Livin g Live Births 2 2 2 Date Outcome GA Total Labor Labor/2nd/3rd Weight Sex Type Anes PTL Kacie A1 A5 Name Clin Term Term Last Filed Vital Signs Vital Sign Reading Time Taken Comments Blood Pressure 110/70 12/01/2021 10:22 AM OPTOMECHANICAL ENGINEER Pulse 83 12/01/2021 10:22 AM OPTOMECHANICAL ENGINEER Temperature 36.2 C (97.1 F) 11/13/2020 9:35 AM OPTOMECHANICAL ENGINEER Respiratory Rate - - Oxygen Saturation 96% 04/12/2013 9:33 AM CDT Inhaled Oxygen Concentration - - Weight 86.2 kg (190 lb) 12/01/2021 10:22 AM OPTOMECHANICAL ENGINEER Height 168.9 cm (5' 6.5) 05/02/2023 9:09 AM CDT Body Mass Index 30.67 12/01/2021 10:22 AM OPTOMECHANICAL ENGINEER Plan of Treatment Health Maintenance Due Date [...] Most Recently Relevant to Health Maintenance Insurance [facility] [place] Member Subscriber Plan / Payer (Ef fective 2022-Present) Name:WahlAllisonmagdalena Brasher Relation to Subscriber:Self Name:Starr Wahl Anshu Payer ID:[id number] (NAIC) Type:HEALTHCARE/EXCHANGE Address: [address] [place] [phone] CHOICE [place] Care Teams Senior Group Manager Relationship Specialty Start Date End Date Nadir Graham NP PCP - General 07/23/20
--- OUTSIDE RECORDS SUMMARY | 2025-07-11 01:33 | XMS_ITS | Clinical Summary ---
Author Organization [facility] Address [address] [place] [address] Care Team Providers Care Transfer Knitter Name Role Phone Unavailable Primary Care Provider Unavailabl e Source Comments [facility],non-owned Affiliates and Associated Physician Practices is amultiple site organization consisting of ambulatory clinics and hospital sitesin [place], [place], [place] and [place]. This disclosure is being madepursuant to the Care Everywhere program and may not contain all information available regarding this patient. Last updated 18.[facility] [employer] Allergies No known active allergies Medications * [...] on file Legal Sex Female 1:54 PM COST SPECIALIST Gender Identity Not on file Sexual Orientation [...] age to complete this topic Insurance [facility] Address: [facility] [id number] [place] [phone]
[2025-07-11 09:23] VITALS: BP 120/67; PULSE 59; RESP 18; TEMP 36.6; O2SAT 99; BMI 29.2
[2025-07-11] MEDS: LACTATED RINGERS 1,000 ML 150 ML IV CONT (09:47)
[2025-07-11] MEDS: SIMETHICONE ORAL SUSPENSION 20 MG/0.3 ML 30 ML BOTTLE 1.8 ML PO (09:51)
--- NOTE | 2025-07-11 10:14 | WPDANESEPPF ---
Anes - Initial Pre Proc Eval Procedure: Operation Date: 07/11/25 10:00 Proposed Procedures p Esophagogastroduodenoscopy - Fazal Chin MD Date/Time: 07/11/25 10:14 Surgeon: Fzaal Chin MD Pre Op Diagnosis: Gastro-esophageal reflux disease without esophagit Patient Data Age: 64 Gender: F Height: 1.68 m Weight: 82.1 kg Last Vital Signs Temp 97.9 F 07/11/25 09:23 Pulse 59 L 07/11/25 09:23 Resp 18 07/11/25 09:23 BP 120/67 07/11/25 09:23 Pulse Ox 99 07/11/25 09:23 O2 Del Method Room Air 07/11/25 09:23 Allergies Allergy/AdvReac Type Severity Reaction Status Date / Time chocolate flavor Allergy Unknown THROAT Verified 07/11/25 09:29 SWELLING corn Allergy Unknown ABD Verified 07/11/25 09:29 BLOATING grass pollen Allergy Unknown Hives Verified 07/11/25 09:29 mold Allergy Unknown Unknown Verified 07/11/25 09:29 pollen extracts Allergy Unknown unknown Verified 07/11/25 09:29 wheat Allergy Unknown unknown Verified 07/11/25 09:29 Home Medications ?Medication ?Instructions ?Recorded ?Confirmed ?Type cetirizine 10 mg tablet (Zyrtec) 10 mg PO DAILY 02/02/22 07/11/25 History fluticasone propionate 50 1 spray intranasal DAILY 02/02/22 07/11/25 History mcg/actuation nasal spray,suspension (Allergy Relief (fluticasone)) inhalational spacing device (Space #1 ea 10/28/22 05/15/25 Rx Chamber) albuterol sulfate 90 mcg/actuation 1 - 2 puff inhalation Q4-6H PRN 11/09/23 06/27/25 Rx aerosol inhaler Shortness Of Breath #8.5 grams montelukast 10 mg tablet 10 mg PO DAILY #90 tabs 11/15/24 07/11/25 Rx phentermine 37.5 mg tablet 37.5 mg PO DAILY #30 tabs 03/04/25 05/15/25 Rx trazodone 50 mg tablet 25 - 50 mg (0.5 - 1 x 50 mg) PO 03/21/25 06/27/25 Rx QHS PRN Pain #90 tabs atorvastatin 10 mg tablet 10 mg PO DAILY #90 tabs 05/15/25 07/11/25 Rx famotidine 40 mg tablet 40 mg PO BID #180 tabs 05/15/25 07/11/25 Rx fluticasone fur. 200 mcg-umeclid 1 inh inhalation DAILY 05/15/25 07/11/25 History 62.5 mcg-vilant 25 mcg inhalat.powder (Trelegy Ellipta) levothyroxine 100 mcg tablet 100 mcg PO DAILY #90 tabs 05/15/25 07/11/25 Rx pantoprazole 40 mg tablet,delayed 40 mg PO QAM #30 tabs 05/15/25 05/15/25 Rx release omega 6-ytx-grc-fish oil 1,000 mg 1 cap PO DAILY 06/27/25 07/11/25 History (120 mg-180 mg) capsule (Fish Oil) Patient hx anesthesia problems: none Family hx anesthesia problems: none Results Review: All pre-operative results and documents have been reviewed as part of the pre-operative evaluation. [facility] Past Medical History Medical History Left lower lobe pulmonary nodule monitored by pulmonology Hammer toes of both feet Shortness of breath Sinusitis BMI 29.0-29.9,adult Insomnia BMI 32.0-32.9,adult Breast cancer screening by mammogram normal mammogram 05/02/2023. Normal mammogram 10/15/2024. BMI 34.0-34.9,adult Elevated fasting glucose Encounter to establish care Hyperlipidemia Anemia Pain of left thumb PONV (postoperative nausea and vomiting) Hypothyroidism GERD (gastroesophageal reflux disease) Hyperlipidemia Arthritis of right knee Asthma Surgical History Surgical History History of right knee joint replacement (~08/03/22) History of left knee replacement (~2016) History of thyroid surgery (~2014) Right History of lung surgery (~1969) History of bunionectomy Right 2009 Left 2021 History of hysterectomy (~1998) Family History Family History Mother Lung cancer COPD (chronic obstructive pulmonary disease) Father Hypertension Grandparent Diabetes mellitus Son Asthma Other Diabetes mellitus Social History Social History Smoking status: Never smoker Additional smoking assessment comments: DENIES ANY FORM OFTOBACCO USE Alcohol intake: never Drinks per week: 1 Substance use: never Substance use type: does not use Lack of Transportation: No Lack of Food: Never True Current Housing: I Have Housing Concerned About Future Housing: No Difficulty Paying Gas/Electric Bills: No Difficulty Paying for Meds: No Currently Unemployed: No Education: High School Diploma/GED Difficulty w/ Childcare or Family Care: No Living arrangements: with family Spiritual care concerns: No Anes - Eval Final PreProcedure Day of Procedure 07/11/25 10:14 Patient weight: overweight Lungs: normal air movement Airway: Mallampati scale class II Neurological: alert and oriented Last oral intake: >/= 8 hours ASA classification: III Emergent: no Anesthetic plan: proceed Anesthesia type and monitoring: general GIVS and standard monitoring Results Review: All pre-operative results and documents have been reviewed as part of the pre-operative evaluation. Hyperlipidemia, GERD, asthma/RAD, hypothyroidism. Informed Consent: The patient's anesthetic plan and its attendant risks and benefits were discussed with the patient/family/POA. Questions were solicited and answers provided to the satisfaction of the patient/family/POA.
--- NOTE | 2025-07-11 10:44 | SUR.PREOP ---
patient notified of procedure time delay and reassured and that she will be going back next. Patient understood and call light placed within reach if we are needed.
--- NOTE | 2025-07-11 10:57 | PM.IMHP ---
H&P: HPI History of Present Illness Date/Time: 07/11/25 10:57 Chief Complaint: GERD Narrative: patient with longstanding GERD, recently exacerbated the past 2 months, having daily episodes, partially controlled by omeprazole. This happened despite being very careful with food ingestion and general anti-reflux measures. She is now referred for EGD. She endorses occasional dysphagia to solids. Review of Systems Review of Systems: All systems reviewed & are unremarkable except as noted in HPI and below PMFSH Past Medical History Medical History Left lower lobe pulmonary nodule monitored by pulmonology Hammer toes of both feet Shortness of breath Sinusitis BMI 29.0-29.9,adult Insomnia BMI 32.0-32.9,adult Breast cancer screening by mammogram normal mammogram 05/02/2023. Normal mammogram 10/15/2024. BMI 34.0-34.9,adult Elevated fasting glucose Encounter to establish care Hyperlipidemia Anemia Pain of left thumb PONV (postoperative nausea and vomiting) Hypothyroidism GERD (gastroesophageal reflux disease) Hyperlipidemia Arthritis of right knee Asthma Surgical History Surgical History History of right knee joint replacement (~08/03/22) History of left knee replacement (~2016) History of thyroid surgery (~2014) Right History of lung surgery (~1969) History of bunionectomy Right 2009 Left 2021 History of hysterectomy (~1998) Family History Family History Mother Lung cancer COPD (chronic obstructive pulmonary disease) Father Hypertension Grandparent Diabetes mellitus Son Asthma Other Diabetes mellitus Social History Social History Smoking status: Never smoker Additional smoking assessment comments: DENIES ANY FORM OFTOBACCO USE Alcohol intake: never Drinks per week: 1 Substance use: never Substance use type: does not use Lack of Transportation: No Lack of Food: Never True Current Housing: I Have Housing Concerned About Future Housing: No Difficulty Paying Gas/Electric Bills: No Difficulty Paying for Meds: No Currently Unemployed: No Education: High School Diploma/GED Difficulty w/ Childcare or Family Care: No Living arrangements: with family Spiritual care concerns: No Meds Home Medications and Allergies Home Medications ?Medication ?Instructions ?Recorded ?Confirmed ?Type cetirizine 10 mg tablet (Zyrtec) 10 mg PO DAILY 02/02/22 07/11/25 History fluticasone propionate 50 1 spray intranasal DAILY 02/02/22 07/11/25 History mcg/actuation nasal spray,suspension (Allergy Relief (fluticasone)) inhalational spacing device (Space #1 ea 10/28/22 05/15/25 Rx Chamber) albuterol sulfate 90 mcg/actuation 1 - 2 puff inhalation Q4-6H PRN 11/09/23 06/27/25 Rx aerosol inhaler Shortness Of Breath #8.5 grams montelukast 10 mg tablet 10 mg PO DAILY #90 tabs 11/15/24 07/11/25 Rx phentermine 37.5 mg tablet 37.5 mg PO DAILY #30 tabs 03/04/25 05/15/25 Rx trazodone 50 mg tablet 25 - 50 mg (0.5 - 1 x 50 mg) PO 03/21/25 06/27/25 Rx QHS PRN Pain #90 tabs atorvastatin 10 mg tablet 10 mg PO DAILY #90 tabs 05/15/25 07/11/25 Rx famotidine 40 mg tablet 40 mg PO BID #180 tabs 05/15/25 07/11/25 Rx fluticasone fur. 200 mcg-umeclid 1 inh inhalation DAILY 05/15/25 07/11/25 History 62.5 mcg-vilant 25 mcg inhalat.powder (Trelegy Ellipta) levothyroxine 100 mcg tablet 100 mcg PO DAILY #90 tabs 05/15/25 07/11/25 Rx pantoprazole 40 mg tablet,delayed 40 mg PO QAM #30 tabs 05/15/25 05/15/25 Rx release omega 4-cjb-ntj-fish oil 1,000 mg 1 cap PO DAILY 06/27/25 07/11/25 History (120 mg-180 mg) capsule (Fish Oil) Allergies Allergy/AdvReac Type Severity Reaction Status Date / Time chocolate flavor Allergy Unknown THROAT Verified 07/11/25 09:29 SWELLING corn Allergy Unknown ABD Verified 07/11/25 09:29 BLOATING grass pollen Allergy Unknown Hives Verified 07/11/25 09:29 mold Allergy Unknown Unknown Verified 07/11/25 09:29 pollen extracts Allergy Unknown unknown Verified 07/11/25 09:29 wheat Allergy Unknown unknown Verified 07/11/25 09:29 Vital Signs Vital Signs - 24 hr 07/11/25 09:23 Temperature 97.9 F Pulse Rate 59 L Respiratory Rate 18 Blood Pressure 120/67 Pulse Oximetry 99 Oxygen Delivery Room Air Exam Const: General: cooperative and healthy appearing Resp: Effort & Inspection: normal respiratory effort and able to speak in complete sentences Auscultation: clear to auscultation bilaterally Cardio: Rate: regular rate Rhythm: regular rhythm GI: Inspection: normal to inspection GI Palp: No No hepatosplenomegaly present Auscultation: normal bowel sounds Rectal Exam: deferred Skin: General skin exam: normal color Psych: Appearance: grossly normal Mental Status: mental status grossly normal Assessment and Plan Assessment and plan (1) GERD (gastroesophageal reflux disease): Code(s): K21.9 - Gastro-esophageal reflux disease without esophagitis Status: Acute Assessment and Plan: The patient is deemed a good candidate for the procedure. Consent signed. Will proceed.
--- NOTE | 2025-07-11 11:12 | S_PTH ---
PATIENT: Starr Wahl LOC: [facility]#:[id number] AGE/SX: 64/F ROOM: RE07/11/[address]: Fazal Chin MD : 1960 BED: DIS: 07/11/2025 SPEC #: [id number] RECD: 07/11/25 13:34 STATUS: AALIYAH REAdryan #: [id number] EL: 07/11/25 11:[address]: Fazal Chin DEPT: [facility] Surgical RECD BY: Shey Trent ENTERED: 07/11/25 13:35 SP TYPE: Surgical OTHR DR: Janett Malone APRN Tissues: A - Esophageal Biopsy B - Gastric Biopsy C - Gastric Biopsy Procedures: Pas with Diastase Grocotts Methenamine Stain Hematoxylin and Eosin Stain Gross and Microscopic Level 4
[2025-07-11 11:18] VITALS: BP 120/71; PULSE 58; RESP 17; O2SAT 100
[2025-07-11 11:28] VITALS: BP 131/65; PULSE 60; RESP 18; O2SAT 100
[2025-07-11 11:38] VITALS: BP 124/75; PULSE 58; RESP 19; O2SAT 100
== END 2025-07-11 11:52 | disposition home or self-care (01) ==
PROVIDERS: PCP Nurse Practitioner Family; Referring Provider Nurse Practitioner Family; Visit Provider Internal Medicine Gastroenterology
PROC: 0DJ08ZZ Inspection of Upper Intestinal Tract, Via Natural or Artificial Opening Endoscopic (ICD-10-PCS; CPT 43239; principal; 2025-07-11 10:00)
DX: K20.80 Other esophagitis without bleeding (principal); E78.5 Hyperlipidemia, unspecified; D64.9 Anemia, unspecified; E03.9 Hypothyroidism, unspecified; M17.11 Unilateral primary osteoarthritis, right knee; J45.909 Unspecified asthma, uncomplicated; G47.00 Insomnia, unspecified; Z79.51 Long term (current) use of inhaled steroids; Z98.890 Other specified postprocedural states; Z80.1 Family history of malignant neoplasm of trachea, bronchus and lung
CPT/HCPCS: 43239; 88305; 88312; 88313; J1100; J2003; J2405; J2704; J7120

== ENCOUNTER 2025-07-25 00:34 | Day surgery (SDC) | payer BC, SELFPAY ==
[2025-07-18 09:29] VITALS: BMI 29.0
--- NOTE | 2025-07-18 09:40 | SUR.PREOP ---
Report to the Outpatient Waiting Room, entrance under the green pavilion located off [facility], at time 11a.m. on date 07/25/2025. Planned Procedure Time: 1p.m.? Time changes happen often and if your time is changed the preop area will call you the afternoon before. - You and your visitor will be asked to self-screen and do not enter if you have any COVID symptoms. Please call surgeon if you need to reschedule. - A mask is optional within the hospital at this time. Patients may have clear liquids (water, carbonated beverages, clear teas, apple juice) until 3 hours prior to surgery with a maximum of 20 ounces. (STOP AT 10a.m.) - No food from midnight until time of surgery and no smoking, or chewing tobacco (or any form of nicotine). No chewing gum, candy or mints. Take only the following medications with a SIP of water on the morning of surgery: levothyroxine, Inhaler DO NOT STOP ANY OF YOUR OTHER PRESCRIPTION MEDICATIONS PRIOR TO SURGERY EXCEPT THE FOLLOWING Hold all vitamins and supplements for 3 days per anesthesiologist. Medications to discontinue per physician Vitamins and Supplements (Fish Oil, Probiotic) Date to take last dose 07/22/2025 Please no make-up, nail venezuelan, hairspray, perfume, deodorant, or body powder the day of surgery.? No jewelry (including any body piercings) or valuables the day of surgery, leave them at home.? Please take a shower or bath the night before, or the morning of, surgery with an antibacterial soap.? Wear comfortable, loose fitting clothing.? Children are encouraged to wear pajamas. - Jewelry must be removed prior to entering the operating room.? Rings and piercings that are not removed may be cut off. - The hospital will not accept responsibility for valuables.? - Please leave all valuables, including medications, at home the day of surgery. If you are going home after surgery, a licensed test driver must drive you home.? - NO public transportation without another adult if you receive anesthesia. - We recommend that an adult stay with you for 24 hours following discharge. - We also recommend that you do not drive, make important decision, drink alcoholic beverages, or take any drugs that were not prescribed by your health care provider for at least 24 hours after your discharge time. For Pediatric surgeries, we recommend two adults accompany the child home. Follow any additional instructions given to you from your surgeon. Telephone instructions given to Starr Wahl and asked if any additional questions and then verbalized understanding. Patient advised to call surgeon office or pre surgery nurse liaison [phone] if any additional questions. [facility] has started construction of its new state of the art ER which will open Spring 2026. With this, we anticipate parking may be a challenge for some our surgical patients and families. Parking spaces are limited but are available for all Surgical, obstetrics, and ER patients sharing this lot. If you arrive and find you are having a hard time finding a parking space, please note that we understand the challenges, please drive around the hospital and park near Hospital Entrance 1. When you enter this entrance, you can ask a volunteer to direct or take you back to the surgical waiting area to check in. We appreciate everyone?s understanding of these expected challenges while we build for your future.
--- NOTE | ~2025-07-25 | XR_ITS ---
EXAMINATION: XR surgery orthopedic DATE: 07/25/2025 15:26 INDICATION: Left foot surgery TECHNIQUE: A single fluoroscopic image of the left forefoot was obtained during procedure performed by Dr. Leon. Radiologist was not present for the imaging or procedure. The amount of fluoroscopy time used during this procedure was 0.1 minutes. Total DAP was 0.417 cGycm^2. COMPARISON: None. FINDINGS: Images demonstrate chronic bunionectomy at the medial head of the first metatarsal and also refused 3 mm osteotomies with screw fixation at the neck of the first metatarsal and with medial staple fixation at the base of the first proximal phalanx. Additional likely new realignment osteotomy with screw fixations at the necks of the second and third metatarsals. Osteotomies at the heads of the second and third proximal phalanges with an axially directed wire fixation across the second toe. Secondary widening of the second third proximal interphalangeal joints with expected postoperative gas. IMPRESSION: 1. Fluoroscopy utilized during orthopedic procedure at the left forefoot. See procedure note for further detail. Reviewed, dictated and finalized at location A. IMPRESSION: 1. Fluoroscopy utilized during orthopedic procedure at the left forefoot. See p rocedure note for further detail.
--- NOTE | ~2025-07-25 | XR_ITS ---
EXAMINATION: XR foot LT min 3V DATE: 07/25/2025 15:02 INDICATION: Postoperative x-rays following left foot surgery TECHNIQUE: Dorsoplantar, oblique and lateral views of the left foot were obtained. COMPARISON: None. FINDINGS: Recent-appearing postoperative changes of shortening osteotomies at the necks of the second and third metatarsals with screw fixations. Additional osteotomies at the heads of the second and third proximal phalanges and third and fourth middle phalanges with widening of the corresponding interphalangeal joints. There is a percutaneous axially directed wire fixation extending from the tuft of the second distal phalanx across the middle phalanx and into the proximal metaphyseal region of the proximal phalanx. Old healed radial and colostomy with screw fixation at the neck of the first metatarsal and with medial sided staple fixation at the proximal metaphyseal region of the first proximal phalanx. Chr onic bunionectomy with smoothly corticated margins. Bone alignment remains essentially anatomic.. No acute fracture. Moderate-sized plantar calcaneal spur. 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 Bandaging material about the forefoot. IMPRESSION: 1. Acute and chronic postoperative changes in the forefoot as detailed above. Reviewed, dictated and finalized at location A.
[2025-07-25 11:15] VITALS: BP 124/71; PULSE 61; RESP 18; TEMP 36.7; O2SAT 99
[2025-07-25 12:13] VITALS: BMI 29.2
--- NOTE | 2025-07-25 12:37 | PM.HPGS ---
History of Present Illness History of Present Illness Consent: Risks, benefits, and alternatives have been discussed and questions answered. Patient agrees to proceed with procedure. Chief complaint: hammer toes left foot, enthesopathy left foot, Narrative: tSarr Wahl is a 64 year old female being seen today for left foot pain which has been recalcitrant to conservative treatments. The pain is located to the left toes 2-5 and bottom of ball of foot. Patient has tried cortisone injections, inserts, padding/strapping, oral medication- none of which has helped with pain. Review of Systems Review of Systems: All systems reviewed & are unremarkable except as noted in HPI and below Musculoskeletal: Musculoskeletal: Reports arthralgias PMFSH Past Medical History Medical History Left lower lobe pulmonary nodule monitored by pulmonology Hammer toes of both feet Shortness of breath Sinusitis BMI 29.0-29.9,adult Insomnia BMI 32.0-32.9,adult Breast cancer screening by mammogram normal mammogram 05/02/2023. Normal mammogram 10/15/2024. BMI 34.0-34.9,adult Elevated fasting glucose Encounter to establish care Hyperlipidemia Anemia Pain of left thumb PONV (postoperative nausea and vomiting) Hypothyroidism GERD (gastroesophageal reflux disease) Hyperlipidemia Arthritis of right knee Asthma Surgical History Surgical History History of right knee joint replacement (~08/03/22) History of left knee replacement (~2016) History of thyroid surgery (~2014) Right History of lung surgery (~1969) History of bunionectomy Right 2009 Left 2021 History of hysterectomy (~1998) Family History Family History Mother Lung cancer COPD (chronic obstructive pulmonary disease) Father Hypertension Grandparent Diabetes mellitus Son Asthma Other Diabetes mellitus Social History Social History Smoking status: Never smoker Additional smoking assessment comments: DENIES ANY FORM OFTOBACCO USE Alcohol intake: never Drinks per week: 1 Substance use: never Substance use type: does not use Lack of Transportation: No Lack of Food: Never True Current Housing: I Have Housing Concerned About Future Housing: No Difficulty Paying Gas/Electric Bills: No Difficulty Paying for Meds: No Currently Unemployed: No Education: High School Diploma/GED Difficulty w/ Childcare or Family Care: No Living arrangements: with family Spiritual care concerns: No Meds Home Medications and Allergies Home Medications ?Medication ?Instructions ?Recorded ?Confirmed ?Type cetirizine 10 mg tablet (Zyrtec) 10 mg PO DAILY 02/02/22 07/18/25 History fluticasone propionate 50 1 spray intranasal DAILY 02/02/22 07/18/25 History mcg/actuation nasal spray,suspension (Allergy Relief (fluticasone)) inhalational spacing device (Space #1 ea 10/28/22 07/18/25 Rx Chamber) montelukast 10 mg tablet 10 mg PO DAILY #90 tabs 11/15/24 07/18/25 Rx trazodone 50 mg tablet 25 - 50 mg (0.5 - 1 x 50 mg) PO 03/21/25 07/18/25 Rx QHS PRN Pain #90 tabs atorvastatin 10 mg tablet 10 mg PO DAILY #90 tabs 05/15/25 07/18/25 Rx famotidine 40 mg tablet 40 mg PO BID #180 tabs 05/15/25 07/18/25 Rx fluticasone fur. 200 mcg-umeclid 1 inh inhalation DAILY 05/15/25 07/18/25 History 62.5 mcg-vilant 25 mcg inhalat.powder (Trelegy Ellipta) levothyroxine 100 mcg tablet 100 mcg PO DAILY #90 tabs 05/15/25 07/18/25 Rx pantoprazole 40 mg tablet,delayed 40 mg PO QAM #30 tabs 05/15/25 07/18/25 Rx release omega 4-ohv-vdt-fish oil 1,000 mg 1 cap PO DAILY 06/27/25 07/18/25 History (120 mg-180 mg) capsule (Fish Oil) Allergies Allergy/AdvReac Type Severity Reaction Status Date / Time chocolate flavor Allergy Unknown THROAT Verified 07/18/25 09:26 SWELLING corn Allergy Unknown ABD Verified 07/18/25 09:26 BLOATING grass pollen Allergy Unknown Hives Verified 07/18/25 09:26 mold Allergy Unknown Unknown Verified 07/18/25 09:26 pollen extracts Allergy Unknown unknown Verified 07/18/25 09:26 wheat Allergy Unknown unknown Verified 07/18/25 09:26 Vital Signs Vital Signs - 24 hr 07/25/25 11:15 Temperature 36.7 C Pulse Rate 61 Respiratory Rate 18 Blood Pressure 124/71 Pulse Oximetry 99 Oxygen Delivery Room Air Exam Extrem: Other: Pain on palpation to 2nd and 3rd metatarsophalangeal joints mainly plantarly. Hammer toe deformities digits 2-5, left foot. Pedal pulses palpable 2/4, bilateral. Capillary refill time immediate to digits, bilateral. Protective sensation intact to digits, bilateral Assessment and Plan Assessment and plan (1) Enthesopathy of left foot: Code(s): M77.8 - Other enthesopathies, not elsewhere classified Status: Acute Plan - Semi rigid hammer toe deformities, 2-5, left foot - Capsulitis (enthesopathy) 2nd and 3rd metatarsphalangeal joints, left foot Plan: - hammer toe repair (interphalangeal joint arthroplasties) digits 2-5, left foot - Penny osteotomy 2nd metatarsal, left foot - possible Penny osteotomy 3rd metatarsal, left foot
--- NOTE | 2025-07-25 12:42 | WPDHPUPDATE1 ---
History and Physical Update Update Date/Time: 07/25/25 12:42 History and Physical has been reviewed, including an updated exam of the patient. There are NO changes in the patient's condition. Risks, benefits, and alternatives have been discussed and questions answered. Patient agrees to proceed with procedure.
--- NOTE | 2025-07-25 12:51 | WPDANESEPPF ---
Anes - Initial Pre Proc Eval Procedure: Operation Date: 07/25/25 13:00 Proposed Procedures p Penny Osteotomy Second Metatarsal Left Foot, Possible Third Metatarsal, Hammer Toe Repair Digits Two Through Five Left Foot - Araceli Leon DPM Date/Time: 07/25/25 12:51 Surgeon: Araceli Leon DPM Pre Op Diagnosis: hammer toes left foot, enthesopathy left foot, Patient Data Age: 64 Gender: F Height: 1.68 m Weight: 82.3 kg Last Vital Signs Temp 98.0 F 07/25/25 11:15 Pulse 61 07/25/25 11:15 Resp 18 07/25/25 11:15 BP 124/71 07/25/25 11:15 Pulse Ox 99 07/25/25 11:15 O2 Del Method Room Air 07/25/25 11:15 Allergies Allergy/AdvReac Type Severity Reaction Status Date / Time chocolate flavor Allergy Unknown THROAT Verified 07/18/25 09:26 SWELLING corn Allergy Unknown ABD Verified 07/18/25 09:26 BLOATING grass pollen Allergy Unknown Hives Verified 07/18/25 09:26 mold Allergy Unknown Unknown Verified 07/18/25 09:26 pollen extracts Allergy Unknown unknown Verified 07/18/25 09:26 wheat Allergy Unknown unknown Verified 07/18/25 09:26 Home Medications ?Medication ?Instructions ?Recorded ?Confirmed ?Type cetirizine 10 mg tablet (Zyrtec) 10 mg PO DAILY 02/02/22 07/18/25 History fluticasone propionate 50 1 spray intranasal DAILY 02/02/22 07/18/25 History mcg/actuation nasal spray,suspension (Allergy Relief (fluticasone)) inhalational spacing device (Space #1 ea 10/28/22 07/18/25 Rx Chamber) montelukast 10 mg tablet 10 mg PO DAILY #90 tabs 11/15/24 07/18/25 Rx trazodone 50 mg tablet 25 - 50 mg (0.5 - 1 x 50 mg) PO 03/21/25 07/18/25 Rx QHS PRN Pain #90 tabs atorvastatin 10 mg tablet 10 mg PO DAILY #90 tabs 05/15/25 07/18/25 Rx famotidine 40 mg tablet 40 mg PO BID #180 tabs 05/15/25 07/18/25 Rx fluticasone fur. 200 mcg-umeclid 1 inh inhalation DAILY 05/15/25 07/18/25 History 62.5 mcg-vilant 25 mcg inhalat.powder (Trelegy Ellipta) levothyroxine 100 mcg tablet 100 mcg PO DAILY #90 tabs 05/15/25 07/18/25 Rx pantoprazole 40 mg tablet,delayed 40 mg PO QAM #30 tabs 05/15/25 07/18/25 Rx release omega 9-zqo-wtv-fish oil 1,000 mg 1 cap PO DAILY 06/27/25 07/18/25 History (120 mg-180 mg) capsule (Fish Oil) Patient hx anesthesia problems: post op nausea/vomiting Family hx anesthesia problems: none Results Review: All pre-operative results and documents have been reviewed as part of the pre-operative evaluation. [facility] Past Medical History Medical History Left lower lobe pulmonary nodule monitored by pulmonology Hammer toes of both feet Shortness of breath Sinusitis BMI 29.0-29.9,adult Insomnia BMI 32.0-32.9,adult Breast cancer screening by mammogram normal mammogram 05/02/2023. Normal mammogram 10/15/2024. BMI 34.0-34.9,adult Elevated fasting glucose Encounter to establish care Hyperlipidemia Anemia Pain of left thumb PONV (postoperative nausea and vomiting) Hypothyroidism GERD (gastroesophageal reflux disease) Hyperlipidemia Arthritis of right knee Asthma Surgical History Surgical History History of right knee joint replacement (~08/03/22) History of left knee replacement (~2016) History of thyroid surgery (~2014) Right History of lung surgery (~1969) History of bunionectomy Right 2009 Left 2021 History of hysterectomy (~1998) Family History Family History Mother Lung cancer COPD (chronic obstructive pulmonary disease) Father Hypertension Grandparent Diabetes mellitus Son Asthma Other Diabetes mellitus Social History Social History Smoking status: Never smoker Additional smoking assessment comments: DENIES ANY FORM OFTOBACCO USE Alcohol intake: never Drinks per week: 1 Substance use: never Substance use type: does not use Lack of Transportation: No Lack of Food: Never True Current Housing: I Have Housing Concerned About Future Housing: No Difficulty Paying Gas/Electric Bills: No Difficulty Paying for Meds: No Currently Unemployed: No Education: High School Diploma/GED Difficulty w/ Childcare or Family Care: No Living arrangements: with family Spiritual care concerns: No Anes - Eval Final PreProcedure Day of Procedure 07/25/25 12:51 Patient weight: normal Heart: regular rate and rhythm Lungs: clear to auscultation Airway: Mallampati scale class II Neurological: alert and oriented Last oral intake: >/= 8 hours ASA classification: III Emergent: no Anesthetic plan: proceed Anesthesia type and monitoring: general GIVS and standard monitoring Results Review: All pre-operative results and documents have been reviewed as part of the pre-operative evaluation. Informed Consent: The patient's anesthetic plan and its attendant risks and benefits were discussed with the patient/family/POA. Questions were solicited and answers provided to the satisfaction of the patient/family/POA.
[2025-07-25] MEDS: LIDOCAINE 1% LOCAL INJ 10 ML VIAL INFILTRATE (13:03)
[2025-07-25] MEDS: ceFAZolin 2 GM in SODIUM CHLORIDE 0.9% IV 50 ML 100 ML IVPB (13:03)
--- NOTE | 2025-07-25 14:47 | PM.OP ---
Procedure Note - Brief Procedure Note - Brief Date of procedure: 07/25/25 hammer toes left foot, enthesopathy left foot, Procedure performed: Left foot Penny osteotomy 2nd metatarsal Left foot Penny osteotomy 3rd metatarsal Left foot proximal interphalangeal joint arthroplasty with k-wire fixation 2nd digit Left foot proximal interphalangeal joint arthroplasty 3rd digit Left foot proximal interphalangeal joint arthroplasty 4th digit Left foot proximal interphalangeal joint arthroplasty 5th digit Surgeon: Araceli Leon DPM Findings: See operative report Description of procedure: See operative report Implants: 20 cc of 1:1 mix of 1% Lidocaine plain & 0.5% Marcaine plain, left foot Estimated blood loss (mL): 5 Pathology: None sent Complications: None Condition: Stable Disposition: Same day
--- NOTE | 2025-07-25 14:49 | P.OP_ITS ---
Procedure Note - Detailed Date of Procedure 07/25/25 Pre-op Diagnosis hammer toes left foot, enthesopathy left foot, Post-op Diagnosis Same Procedure Performed Left foot Penny osteotomy 2nd metatarsal Left foot Penny osteotomy 3rd metatarsal Left foot proximal interphalangeal joint arthroplasty with k-wire fixation 2nd digit Left foot proximal interphalangeal joint arthroplasty 3rd digit Left foot distal interphalangeal joint arthroplasty 4th digit Left foot distal interphalangeal joint arthroplasty 5th digit Surgeon Araceli Leon, CORNEL Anesthesia MAC Indications The patient is a 64 year-old female with the above diagnoses.? The patient has exhausted conservative treatment at this time and now requests surgical intervention.? The patient signed the consent after careful explanation of risks, benefits, complication and alternatives for surgical procedure.? No guarantees were given nor implied. NPO status was confirmed prior to taking pt to the OR. Findings The patient was brought to the operating room and placed on the operating room table in supine position.? The patient received a total of 10 mL of a 1:1 mix 1.0% Lidocaine plain & 0.5% Marcaine plain in local block fashion to the left foot.? Once local anesthesia was achieved, the left foot was then prepped and draped in usual sterile manner and procedure began. A well padded left ankle tourniquet was applied and set to 250 mmHg. Description of Procedure 1) Left foot Penny osteotomy 2nd metatarsal Attention was directed to the dorsum of the left foot where a linear incision was made overlying the 2nd metatarsophalangeal joint (MPJ). The incision was deepened through subcutaneous tissue with care being taken to identify and retract all vital neurovascular structures. All bleeders were cauterized and ligated as necessary. At this time, a linear capsulotomy was made to the 2nd MPJ and ligamentous structures were dissected off the base of the proximal phalanx. At this time, the plantar plate was inspected and noted to be intact with no tears. The head of the metatarsal had severe osteophytes to its entirety and the articular cartilage was intact. The osteophytes were removed using a bone ronjour. Next, using a sagittal saw, an osteotomy was made just proximal to the articular cartilage of the 2nd metatarsal head and angle distal dorsal to proximal plantar through and through. The head of the metatarsal was noted to fall immediately into corrected position, the osteotomy was then fixated with a 2.7 mm 13 mm snap off screw. Using fluoroscopy, correction of the deformity & proper hardware placement were noted to be excellent. 2) Left foot Penny osteotomy 3rd metatarsal Attention was directed to the dorsum of the left foot where a linear incision was made overlying the 3rd metatarsophalangeal joint (MPJ). The incision was deepened through subcutaneous tissue with care being taken to identify and retract all vital neurovascular structures. All bleeders were cauterized and ligated as necessary. At this time, a linear capsulotomy was made to the 3rd MPJ and ligamentous structures were dissected off the base of the proximal phalanx. At this time, the plantar plate was inspected and noted to be intact with no tears. The head of the metatarsal had severe osteophytes to its entirety and the articular cartilage was intact. The osteophytes were removed using a bone ronjour. Next, using a sagittal saw, an osteotomy was made just proximal to the articular cartilage of the 3rd metatarsal head and angled distal dorsal to proximal plantar through and through. The head of the metatarsal was noted to fall immediately into corrected position, the osteotomy was then fixated with a 2.7 mm 12 mm snap off screw. Using fluoroscopy, correction of the deformity & proper hardware placement were noted to be excellent. 3) Left foot proximal interphalangeal joint arthroplasty with k-wire fixation 2nd digit Attention was directed to the dorsal aspect of the left foot 2nd digit where a semi-rigid hammer toe deformity was noted at the proximal interphalangeal joint (PIPJ). A longitudinal incision was made overlying the PIPJ, extending distally from the incision made in procedure #1.. The incision was deepened through subcutaneous tissue with care being taken to identify and retract all vital neurovascular structures. All bleeders were cauterized and ligated as necessary. At this time, a transverse tenotomy and capsulotomy was performed to the PIPJ. The head of the proximal phalanx was then freed of its capsular and ligamentous attachments. Next utilizing an oscillating saw, the head of the proximal phalanx was resected and passed from the operative site. Next, while simulating weight bearing, the hammertoe deformity correction was noted to sit in a excellent more rectus position.?Next, a 0.045 in K-wire was inserted from the middle phalanx out of the toe and then retrograded back into the proximal phalanx. Fluoroscopy was used to ensure proper placement of the k-wire to not violate the metatarsophalangeal joint. 4) Left foot proximal interphalangeal joint arthroplasty 3rd digit Attention was directed to the dorsal aspect of the left foot 3rd digit where a semi-rigid hammer toe deformity was noted at the proximal interphalangeal joint (PIPJ). A longitudinal incision was made overlying the PIPJ, extending distally from the incision made in procedure #2.. The incision was deepened through subcutaneous tissue with care being taken to identify and retract all vital neurovascular structures. All bleeders were cauterized and ligated as necessary. At this time, a transverse tenotomy and capsulotomy was performed to the PIPJ. The head of the proximal phalanx was then freed of its capsular and ligamentous attachments. Next utilizing an oscillating saw, the head of the proximal phalanx was resected and passed from the operative site. Next, while simulating weight bearing, the hammertoe deformity correction was noted to sit in a excellent more rectus position.? 5) Left foot distal interphalangeal joint arthroplasty 4th digit Attention was directed to the dorsal aspect of the left foot 4th digit where a semi-rigid hammer toe deformity was noted at the distal interphalangeal joint (DIPJ). A longitudinal incision was made overlying the DIPJ. The incision was deepened through subcutaneous tissue with care being taken to identify and retract all vital neurovascular structures. All bleeders were cauterized and ligated as necessary. At this time, a transverse tenotomy and capsulotomy was performed to the DIPJ. The head of the middle phalanx was then freed of its capsular and ligamentous attachments. Next utilizing an oscillating saw, the head of the middle phalanx was resected and passed from the operative site. Next, while simulating weight bearing, the hammertoe deformity correction was noted to sit in a excellent more rectus position.? 6) Left foot distal interphalangeal joint arthroplasty 5th digit Attention was directed to the dorsal aspect of the left foot 5th digit where a semi-rigid hammer toe deformity was noted at the distal interphalangeal joint (DIPJ). A longitudinal incision was made overlying the DIPJ. The incision was deepened through subcutaneous tissue with care being taken to identify and retract all vital neurovascular structures. All bleeders were cauterized and ligated as necessary. At this time, a transverse tenotomy and capsulotomy was performed to the DIPJ. The head of the middle phalanx was then freed of its capsular and ligamentous attachments. Next utilizing an oscillating saw, the head of the middle phalanx was resected and passed from the operative site. Next, while simulating weight bearing, the hammertoe deformity correction was noted to sit in a excellent more rectus position.? Final intra-operative fluoroscopy was taken which noted excellent reduction of deformity & hardware placement. All tendons were re-approximated using 4-0 vicryl. The subcutaneous tissue was re-approximated using 3-0 vicryl. The skin was re-approximated using 4-0 Nylon. The left ankle tourniquet was released with immediate vascular return noted to the digits. Post-operative dressings included adaptic, betadine soaked gauze, 4x4 gauze, kerlix, and coban. Post-Operative Condition:? The patient tolerated the anesthesia and procedure a nd proceeded to the recovery room with vital signs stable and neurovascular status intact to the left foot. Patient will be partial weight bearing to left foot in CAM boot. The patient will follow up with me in office on an outpatient basis. Estimated Blood Loss 5 Complications None Condition Stable Disposition Same day
[2025-07-25 14:52] VITALS: BP 136/64; PULSE 63; RESP 12; O2SAT 100
[2025-07-25] MEDS: LACTATED RINGERS 1,000 ML 30 ML IV CONT ×2 (14:52→15:10)
[2025-07-25 15:20] VITALS: BP 122/60; PULSE 52; RESP 13
[2025-07-25 15:44] VITALS: BP 129/72; PULSE 62; RESP 13
== END 2025-07-25 16:04 | disposition home or self-care (01) ==
PROVIDERS: PCP Nurse Practitioner Family; Visit Provider Podiatrist Foot & Ankle Surgery
PROC: (CPT 28285; principal; 2025-07-25 13:00)
DX: M20.42 Other hammer toe(s) (acquired), left foot (principal); M77.52 Other enthesopathy of left foot and ankle
CPT/HCPCS: 28285 ×4; 28308 ×2; 73630; 99199; J0690; J1100; J1885; J2003; J2004; J2250; J2405; J2704; J3010; J7120

== ENCOUNTER 2025-09-03 13:04 | Outpatient (CLI) | payer BC, SELFPAY ==
[2025-09-03 14:49] LABS: Alanine Aminotransferase 25 U/L (6-35); Albumin Level 4.4 g/dL (3.5-5.1); Alkaline Phosphatase 86 U/L (38-126); Anion Gap 9 mmol/L (4-12); Aspartate Amino Transferase 28 U/L (14-36); Bilirubin,Total 0.6 mg/dL (0.2-1.3); Blood Urea Nitrogen 19 mg/dL (7-17); Calcium 9.1 mg/dL (8.4-10.2); Carbon Dioxide 24 mmol/L (22-30); Chloride 99 mmol/L (98-107); Estimated Glomerular Filt Rate > 60; Glucose 129 mg/dL (65-110); Potassium 4.2 mmol/L (3.4-5.0); Sodium 132 mmol/L (137-145); Total Protein 7.6 g/dL (6.3-8.2)
== END 2025-09-03 13:05 | disposition home or self-care (01) ==
LOC: ANHLAB 13:11
PROVIDERS: PCP Nurse Practitioner Family; Visit Provider Podiatrist Foot & Ankle Surgery
DX: R03.0 Elevated blood-pressure reading, without diagnosis of hypertension (principal)
CPT/HCPCS: 36415; 80053

== ENCOUNTER 2025-09-10 00:33 | Day surgery (SDC) | payer BC, SELFPAY ==
--- OUTSIDE RECORDS SUMMARY | 2022-09-30 18:00 | XMS_ITS | Continuity of Care Document ---
Author Organization [employer] [facility] Address [address] [place] [address] Phone Care Team Providers Care Time Buyer Name Role Phone Arjun THOMAS, Eldanolan Unavailable Unavailable Allergies, Adverse Reactions, Alerts Substance Reaction Status Criticality HYDROCODONE HCL Itching Active No Informati on Medications Medication Instructions Dosage Effective Dates (start - stop) Status Comments peg 3350-electrolytes 236 gram-22.74 gram-6.74 gram-5.86 gram solution DRINK HALF JUG AT 5 PM EVENING BEFORE .. DRINK HALF JUG AT 1AM MORNING OF PROCEDURE - Active ORA [place] COVERED GENERIC FORM montelukast 10 mg tablet take 1 tablet by oral route every day at bedtime 10 MG - Active Lipitor 10 mg tablet take 1 tablet by oral route every day 10 MG - Active LEVOTHYROXIN 100MCG TAB TAKE 1 TABLET BY MOUTH ONCE DAILY - Active FLUTICASONE 50MCG SPR USE 2 SPRAY(S) IN EACH NOSTRIL ONCE DAILY - Active azithromycin 250 mg tablet take 2 tablet by oral route every day for 1 day then 1 tablet (250 mg) by oral route once daily for 4 days 500 MG - Active Pepcid 20 mg tablet take 1 tablet by oral route 2 times every day 20 MG - Active stop ranitidine Estroven 155 mg capsule take 1 capsule every day. - Active triamcinolone acetonide 0.1 % topical cream topically on skin 2 times every day a thin layer to limb/trunk rash for poison Chaim - Active Symbicort 80 mcg-4.5 mcg/actuation HFA aerosol inhaler inhale 2 puff by inhalation route 2 times every day in the morning and evening 2.00 puff - Active sample ProAir HFA 90 mcg/actuation aerosol inhaler inhale 2 puff by inhalation route every 4 - 6 hours as needed - Active Zyrtec 10 mg tablet take 1 tablet by oral route every day 10 MG - Active Saline Nose 0.65 % [place] Aerosol 1/qd - Active Procedures Procedure Date SCREENING COLONOSCOPY (NOT HIGH RISK) De Brief Emotional/Behavioral A ssessment, With Scoring/Doct, Per Stndrd Instrument Pt inelig neg scrn depres GENERAL HEALTH PANEL LIPID PANEL STOOL CARDS OCCULT- SCREENING 0 URINALYSIS, DIPSTICK (UA) - Office Lab J ROUTINE VENIPUNCTURE URINALYSIS W MICROSCOPIC (UA) 0 MICROALBUMIN, QN (URINE) CREATININE, (U-R) PREVENTATIVE-EST: 40-64 BODY MASS INDEX DOCD SYST BP GE 130 - 139MM HG DIAST BP < 80 MM HG FALL PLAN OF CARE DOC'D URINE INCON PLAN DOC'D PRES/ABSN URINE INCON ASSESS COMPREHEN METABOLIC PANEL CMP 9 THYROID STIMULATION HORMONE(TSH) 2018 ROUTINE VENIPUNCTURE OFFICE [id number] BODY MASS INDEX DOCD SYST BP LT 130 MM HG DIAST BP < 80 MM HG Advance Directives Directive Yes / No Effective Date File Name No Information Encounters Encounter Description Practice Location Reason(s) For Visit Diagnoses Date Provider Providers Copied on Encounter [facility], [address], [place], [place], [address] , [place] tel:[phone] [facility] No Information 2 Bialecki Eldad. [address] [facility] [address], [place], [place], [address], [place]. tel:[phone] Referring Provider: Remi Knight, [address] [facility], [place], [address]. tel:[phone] [facility], [address], [place], [place], [address] , [place] tel: [phone] [facility] No Information 2 Bialecki Eldad. [address] [facility] [facility] [address], [place], [place], [address], [place]. tel:[phone] [facility], [address], [place], [place], [address] , [place] tel: [phone] [facility] Office Of Dr Colby Jimenes MD No Information 0- 0 Jalil Bowman. [address] [place], [place], [address], [place]. tel:[phone] [facility], [address], [place], [place], [address] , [place] tel: [phone] [facility] Office Of Dr Colby Jimenes MD No Information 0 Jalil Bowman. [address] [place], [place], [address], [place]. tel:[phone] [facility], [address], [place], [place], [address] , [place] tel: [phone] [facility] Office Of Dr Colby Jimenes MD No Information 0 Jalil Bowman. [address] [place], [place], [address], [place]. tel:[phone] [facility], [address], [place], [address] , [place] tel: [phone] [facility] Office Of Dr Colby Jimenes MD No Information 0 Jalil Bowman. [address] [place], [place], [address], [place]. tel:[phone] PREVENTATIVE -EST: 40-64 [facility], [address], [place], [place], [address] , [place] tel: [phone] [facility] Office Of Dr Colby Jimenes MD Annual (chief complaint)p reventive exam (chief complaint) Body mass index (BMI) 32.0-32.9, adultPhysical examHyperlipid emia, unspecified hyperlipidemia typeOAB (overactive bladder)Rectal examAbnormal finding in urine 0 Jalil Bowman. [address] [place], [place], [address], [place]. tel:[phone] Referring Provider: Colby Jimenes, [address] [place], [address] . tel:[phone] [facility], [address], [place], [place], [address] , [place] tel: [phone] [facility] No Information Jalil Bowman. [address] [place], [place], [address], [place]. tel:[phone] OFFICE SQEUN-BKB-WL TAILED [facility], [address], [place], [place], [address] , [place] tel: [phone] [facility] medical conditions (chief complaint) Hypothyroidism , unspecified typeHyperlipid emia, unspecified hyperlipidemia typeAsthma, unspecified asthma severity, unspecified whether complicated, unspecified whether persistentRigh t upper quadrant abdominal painBody mass index (BMI) 33.0-33.9, adult 9 Jalil Colby. [address] [place], [place], [address], [place]. tel:[phone] Referring Provider: Colby Jimenes, [address] [place], [address] . tel:[phone] [facility], [address], [place], [place], [address] , [place] tel:[phone] [facility] medical conditions (chief complaint) Hypothyroidism , unspecified typeDyslipidem iaAsthma, unspecified asthma severity, unspecified whether complicated, unspecified whether persistentBody mass index (BMI) 34.0-34.9, adult 9 Jalil Bowman. [address] [place], [place], [address], [place]. tel:[phone] Referring Provider: Colby Jimenes, [address] [place], [address] . tel:[phone] [facility], [address], [place], [place], [address] , tel:[phone] [facility] Hypothyroidism , unspecified typeDyslipidem iaFatigue, unspecified typeMicroscopi c hematuria 9 Jimenes Colby. [address] [place], [place], [address], [place]. tel:[phone] Referring Provider: Colby Jimenes, [address] [place], [address] . tel:[phone] [facility], [address], [place], [place], [address] , [place] tel:[phone] [facility] DyslipidemiaHy pothyroidism, unspecified typeAsthma, unspecified asthma severity, unspecified whether complicated, unspecified whether persistentPois on chaim 8 Jimenes Colby. [address] [place], [place], [address], [place]. tel:[phone] Referring Provider: Colby Jimenes, [address] [place], [address] . tel:[phone] [facility], [address], [place], [place], [address] , [place] tel:[phone] [facility] Hypothyroidism , unspecified typeUrgency of urinationAsthm a, unspecified asthma severity, unspecified whether complicated, unspecified whether persistentInso mnia, unspecified typeDyslipidem ia 8 Jalil Colby. [address] [place], [place], [address], [place]. tel:[phone] Referring Provider: Colby Jimenes, [address] [place], [address] . tel:[phone] [facility], [address], [place], [place], [address] , tel: [phone] [facility] Insomnia, unspecified typeDyslipidem iaHypothyroidi sm, unspecified typeObesity, unspecified classification , unspecified obesity type, unspecified whether serious comorbidity present Jimenes Colby. [address] [place], [place], [address], [place]. tel:[phone] Referring Provider: Colby Jimenes, [address] [place], [address] . tel:[phone] [facility], [address], [place], [place], [address] , tel: [phone] [facility] Insomnia, unspecified typeModerate asthma, unspecified whether complicated, unspecified whether persistent Jalil Colby. [address] [place], [place], [address], [place]. tel:[phone] Referring Provider: Colby Jimenes, [address] [place], [address] . tel:[phone] [facility], [address], [place], [address] , [place] tel: [phone] [facility] Acute bronchitis, unspecified organismAsthma , unspecified asthma severity, unspecified whether complicated, unspecified whether persistentAlle rgic rhinitis, unspecified chronicity, unspecified seasonality, unspecified triggerDyslipi demiaHypothyro idism, unspecified typeOsteoarthr itis of left knee, unspecified osteoarthritis typePre-op evaluationAbno rmal chest xray Jalil Colby. [address] [place], [place], [address], [place]. tel:[phone] Referring Provider: Colby Jimenes, [address] [place], [address] . tel:[phone] [facility], [address], [place], [place], [address] , tel:[phone] [facility] Hematuria Mar-0 7 Jalil Bowman. [address] [place], [place], [address], [place]. tel:[phone] Referring Provider: Colby Jimenes, [address] [place], [address] . tel:[phone] [facility], [address], [place], [place], [address] , [place] tel: [phone] [facility] Physical examHypothyroi dism, unspecified typeUncomplica antwan asthma, unspecified asthma severityAllerg ic rhinitis, unspecified allergic rhinitis trigger, unspecified rhinitis seasonalityCra mps of lower extremity, unspecified lateralityRigh t shoulder pain, unspecified chronicityTMJ (dislocation of temporomandibu lar joint), initial encounterObesi ty, unspecified obesity severity, unspecified obesity typeContact dermatitis, unspecified contact dermatitis type, unspecified triggerAbnorma l urinalysis 0 7 Jalil Bowman. [address] [place], [place], [address], [place]. tel:[phone] Referring Provider: Colby Jimenes, [address] [place], [address] . tel:[phone] [facility], [address], [place], [place], [address] , tel: [phone] [facility] Acute bronchitis, unspecified organismUncomp licated asthma, unspecified asthma severityAllerg ic rhinitis, unspecified allergic rhinitis trigger, unspecified rhinitis seasonality 6 Jalil Bowman. [address] [place], [place], [address], [place]. tel:[phone] Referring Provider: Colby Jimenes, [address] [place], [address] . tel:[phone] [facility], [address], [place], [place], [address] , tel: [phone] [facility] Hypothyroidism , unspecified typeAllergic rhinitis, unspecified allergic rhinitis typeCramps of lower extremity, unspecified lateralityGast roesophageal reflux disease, esophagitis presence not specifiedAbnor mal CT scan, chestNon morbid obesity, unspecified obesity type 6 Jalil Bowman. [address] [place], [place], [address], [place]. tel:[phone] Referring Provider: Colby Jimenes, [address] [place] [address], [address] . tel:[phone] [facility], [address], [place], [place], [address] , [place] tel: [phone] [facility] Moderate persistent asthma with acute exacerbationCo ughingAllergic rhinitis, unspecified allergic rhinitis type 6 Jalil Bowman. [address] [place], [place], [address], [place]. tel:[phone] Referring Provider: Colby Jimenes, [address] [place] [address], [address] . tel:[phone] [facility], [address], [place], [place], [address] , [place] tel:[phone] [facility] Chronic GERDHypothyroi dism (acquired)Obes ity (BMI 30.0-34.9)Acut e bacterial pharyngitisOth bacterial agents as the cause of diseases classd elswhr Jalil Bowman. [address] [place], [place], [address], [place]. tel:[phone] Referring Provider: Colby Jimenes, [place], [address] . tel:[phone] [facility], [address], [place], [place], [address] , [place] tel:[phone] [facility] No Information Jalil Bowman. [address] [place], [place], [address], [place]. tel:[phone] [facility], [address], [place], [place], [address] , tel: [phone] [facility] Rib pain on right side 5 Valeri Lott. [address], [address], [place], [place], [address], . [phone] Referring Provider: Colby Jimenes, [address] [place] [address], [address] . tel:[phone] [facility], [address], [place], [place], [address] , tel: [phone] [facility] CoughAsthma 4 Valeri Lott. [address], [address], [place], [place], [address], . [phone] Referring Provider: Colby Jimenes, [address] [place] [address], [address] . tel:[phone] [facility], [address], [place], [place], [address] , tel: [phone] [facility] Paronychia of third finger of left hand 4 Valeridon Lott. [address], [address], [place], [place], [address], [place]. [phone] Referring Provider: Colby Jimenes, [address] [place] [address], [address] . tel:[phone] [facility], [address], [place], [place], [address] , tel: [phone] [facility] BurnParonychia BruisingH/O thyroidectomyN eed for Tdap vaccination 4 Valeri Lott. [address], [address], [place], [place], [address], . [phone] Referring Provider: Colby Jimenes, [address] [place] [address], [address] . tel:[phone] [facility], [address], [place], [place], [address] , tel: [phone] [facility] Abdominal pain [address]. [address], [place], [place], [address]. [phone] Referring Provider: Colby Jimenes, [address] [place], [address] . tel:[phone] [facility], [address], [place], [address] , [place] tel: [phone] [facility] Cervicalgia 3 Chuladon Lott. [address], [address], [place], [place], [address], [place]. [phone] Referring Provider: Colby Jimenes, [address] [place] [address], [address] . tel:[phone] [facility], [address], [place], [address] , [place] tel: [phone] [facility] No Information 3 Chuladon Lott. [address], [place], [place], [address], [place]. tel:[phone] [facility], [address], [place], [place], [address] , [place] tel: [phone] [facility] Routine general medical examination at a health care facilityAllerg ic rhinitis, cause unspecifiedAST HMA,UNSPECIFIE D TYPE, UNSPECIFIEDGoi ter, unspecifiedOth er and unspecified hyperlipidemia Herpes simplex without mention of complicationFe male climactericRou shabana general medical examination at a health care facility 3 Valeridon L[address]. [address], [place], [place], [address], [place]. [phone] Referring Provider: Vikas Nino, [address] [place] [address] [address], [place], [address] . tel:[phone] [facility], [address], [place], [place], [address] , [place] tel: [phone] [facility] Goiter, unspecified 3 Trung Bean. [address], [address], [place], [place], [address], [place]. tel:[phone] [facility], [address], [place], [place], [address] , [place] tel: [phone] [facility] Upper respiratory infectionFever blister 3 Chuladon Buen[address]. [address], [address], [place], [place], [address], [place]. [phone] [facility], [address], [place], [address] , [place] tel: [phone] [facility] Allergic rhinitis, cause unspecifiedAST HMA,UNSPECIFIE D TYPE, UNSPECIFIEDOth er and unspecified hyperlipidemia 3 Valeridon Bu[address]. [address], [address], [place], [place], [address], [place]. tel:[phone] [facility], [address], [place], [address] , [place] tel: [phone] [facility] Allergic rhinitis, cause unspecifiedAST HMA,UNSPECIFIE D TYPE, UNSPECIFIEDCon stipation, unspecifiedOth er and unspecified hyperlipidemia Cervical radiculopathy due to degenerative joint d 3 No Information [facility], [address], [place], [address] , [place] tel: [phone] [facility] ALLERGIC RHINITIS NOSASTHMA NOSConstipatio nOther and unspecified hyperlipidemia Routine general medical examination at a health care facility 2 No Information [facility], [address], [place], [place], [address] , [place] tel: [phone] [facility] Constipation 2 No Information [facility], [address], [place], [address] , [place] tel: [phone] [facility] ALLERGIC RHINITIS NOS 1 No Information [facility], [address], [place], [place], [address] , [place] tel: [phone] [facility] ND VAC STRPTCS PNEUMNI BASTHMA W STATUS ASTHMATASTHMA NOSHYPERLIPIDE MARK NEC/NOSALLERGY , UNSPECIFIED Dec-3 0-201 0 No Information Family History Family Member Type Diagnosis Age At Onset Father Problem (finding) hypertension Problem (finding) Family history of coronary arteriosclerosis Father Problem (finding) raised blood lipids Immunizations Vaccine Date Status Comments Fluzone Quad, preservative free, split virus, 0.5mL dosage administered Note: [facility] ; So urce: Other Provider Fluzone Quad, preservative free, split virus, 0.5mL dosage administered Source: Other Provid er Fluzone Quad [id number], preservative free, split virus, 0.5mL dosage administered Source: Source Unspe cified Influenza, injectable, quadrivalent, 0.5mL dosage administered Note: [facility] ; Source: Other Registry Influenza, seasonal, injectable (3 yrs or older) administered Note: [facility] ; Source: Other Provider Tdap administered Source: [facility] unization Record Influenza, seasonal, injectable (3 yrs or older) administered Note: given at [facility] ; Source: Other Provider [id number] - Pneumococcal_PPV23 administered S ource: Source Unspecified Payers Payer name Insurance type Covered alliance party ID Authoriza tion(s) [facility] CI [id number] MEDICARE [id number] [facility] CI [id number] [facility] CHOICE CI [id number] Social History Type Description Quantity Date Captured Comments Sex Female Smoking Status No Information Chief Complaint And Reason For Visit No Information Reason For Referral Reason For Referral No Information Plan Of Treatment Date Type Action Status Goal Dietary management education , guidance, and counseling completed Goal Dietary management education , guidance, and counseling completed Goal Dietary management education , guidance, and counseling completed History Of Present Illness Encounter Date Complaint History Of Prese nt Illness Annual preventive exam : 2. Hailey ty: Term: 2. Negative for dysmenorrhea and menorrhagia. Negative for: breast discharge, breast lump(s) and breast pain. Menopausal symptoms negative for: night sweats. Pertinent negatives include abnormal bleeding (hematology), abnormal vaginal bleeding, anxiety, depression, sleep disturbances and vaginal discharge. Diet healthy.The patient states her exercise level is moderate and frequency is 2-3 times/week. She has not been exposed to passive smoke. She does not drink alcohol. medical conditions Hypothyroidis m, s/p post: It is chronic, moderate, aggravated by thyroid surgery removal, relieved by taking medication. patient reports taking medication, patient denies any headache, fatigue, dizziness, chest pain or palpitation. Hyperlipidemia: chronic, moderate, patient reports trying to watch diet, trying to do exercise, taking med. asthma: chronic, reporting doing ok, using inh about 1x/month currently, no sob or active wheezing. 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 no pain for days, she is feeling fine now. medical conditions Hypothyroidis m, s/p surgery: It is chronic, moderate severe, aggravated by nothing, relieved by nothing. patient reports taking medication, patient denies any headache, fatigue, dizziness, chest pain or palpitation, reporting feeling ok. Hyperlipidemia: chronic, moderate, patient reports taking med, trying to watch diet, trying to do exercise, feeling ok. asthma: chronic, symptoms are related to allergy, recently doing well, not need to use inh for weeks. Functional Status Date Functional Assessmen t No Information Instructions Date Instruction Additional Infor sherrill please do diet/exerc ise/wt loss, close watch. count calories, try to lose 3 lbs by 3m f/up Related to Body mass index (BMI) 32.0-32.9, adult fob-. 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 yearly mammogram, see dentist regularly, yearly physical. continue bilingual [employer] care. plz f/up w/pulmonary Related to Physical exam please do low-fat/ch olesterol diet, exercise and close watch. 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 diet/exercise and wt loss. Related to Body mass index (BMI) 33.0-33.9, adult discussed and advise d diet, life style modifications. avoid bending over, if the pain recur to report. Related to Right upper quadrant abdominal pain continue care Related to Hyper lipidemia, unspecified hyperlipidemia type continue care Related to Asthm a, unspecified asthma severity, unspecified whether complicated, unspecified whether persistent continue care, check lab, 5m f/up w/pe or sooner prn. get flu shot 08/04 Related to Hypothyroidism, unspecified type Disease process Dietary management e ducation, guidance, and counseling Related to Body mass index (BMI) 33.0-33.9, adult discussed and advised Related to Asthma, unspecified asthma severity, unspecified whether complicated, unspecified whether persistent discussed and advise d diet, life style modifications. Related to Dyslipidemia discussed and advised. 3m for pe Related to Hypothyroidism, unspecified type discussed and advise d diet, life style modifications. Related to Body mass index (BMI) 34.0-34.9, adult Disease process Dietary management e ducation, guidance, and counseling Related to Body mass index (BMI) 34.0-34.9, adult Assessments Type Assessment Date No Information Patient Care Teams Name Effective Dates (start - stop) Status Members No Information
--- NOTE | 2025-09-03 11:05 | PC.NURSE ---
[facility] has started construction of its new state of the art ER which will open Spring 2026. With this, we anticipate parking may be a challenge for some our surgical patients and families. Parking spaces are limited but are available for all Surgical, obstetrics, and ER patients sharing this lot. If you arrive and find you are having a hard time finding a parking space, please note that we understand the challenges, please drive around the hospital and park near Hospital Entrance 1. When you enter this entrance, you can ask a volunteer to direct or take you back to the surgical waiting area to check in. We appreciate everyone?s understanding of these expected challenges while we build for your future. Report to the Outpatient Waiting Room, entrance under the green pavilion located off [address], at time _0600_ on date _[id number]_. Planned Procedure Time: _0730_.? Time changes happen often and if your time is changed the preop area will call you the afternoon before. - You and your visitor will be asked to self-screen and do not enter if you have any COVID symptoms. Please call surgeon if you need to reschedule. - A mask is optional within the hospital at this time. Patients may have clear liquids (water, carbonated beverages, clear teas, apple juice) until 3 hours prior to surgery with a maximum of 20 ounces. - No food from midnight until time of surgery and no smoking, or chewing tobacco (or any form of nicotine). No chewing gum, candy or mints. Take only the following medications with a SIP of water on the morning of surgery: __Levothyroxine, Inhaler and Flonase.____ DO NOT STOP ANY OF YOUR OTHER PRESCRIPTION MEDICATIONS PRIOR TO SURGERY EXCEPT THE FOLLOWING Hold all vitamins and supplements for 3 days per anesthesiologist. Medications to discontinue per physician Date to take last dose____ Please no make-up, nail malaysian, hairspray, perfume, deodorant, or body powder the day of surgery.? No jewelry (including any body piercings) or valuables the day of surgery, leave them at home.? Please take a shower or bath the night before, or the morning of, surgery with an antibacterial soap.? Wear comfortable, loose fitting clothing.? - Jewelry must be removed prior to entering the operating room.? Rings and piercings that are not removed may be cut off. - The hospital will not accept responsibility for valuables.? - Please leave all valuables, including medications, at home the day of surgery. If you are going home after surgery, a licensed local company flatbed truck driver must drive you home.? - NO public transportation without another adult if you receive anesthesia. - We recommend that an adult stay with you for 24 hours following discharge. - We also recommend that you do not drive, make important decision, drink alcoholic beverages, or take any drugs that were not prescribed by your health care provider for at least 24 hours after your discharge time. Follow any additional instructions given to you from your surgeon. Telephone instructions given to __Starr__and asked if any additional questions and then verbalized understanding. Patient advised to call surgeon office or pre surgery nurse liaison [phone] if any additional questions.
[2025-09-03 11:12] VITALS: BMI 29.2
--- NOTE | ~2025-09-10 | XR_ITS ---
EXAMINATION: XR surgery orthopedic DATE: 09/10/2025 08:52 INDICATION: Right forefoot surgery TECHNIQUE: 2 fluoroscopic images of the right forefoot were obtained procedure performed by Dr. Leon. Radiologist was not present for the imaging or procedure. The amount of fluoroscopy time used during this procedure was 0.1 minutes. The dose area product was 0.198 cGcm^2. COMPARISON: None FINDINGS: And multiple postoperative changes in the right forefoot. These include a bunionectomy with osteotomy at the medial head of the first metatarsal. First likely hallux valgus correction with alignment osteotomies at the neck of the first metatarsal fixed with a compression screw and at the neck of the first proximal phalanx with medial sided staple fixation. There is an additional compression screw extending obliquely across the base of the first proximal phalanx. Likely shortening osteotomy at the neck of the second metatarsal fixed with a screw in the second image. Second image also demonstrates osteotomies of the heads of the second and third proximal phalanges. There is an axially directed percutaneous fixation pin extending from the second distal phalanx across the middle and proximal phalanges with distal tip at the head of the second metatarsal. No fractures identified. 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 IMPRESSION: 1. Fluoroscopy utilized during orthopedic procedure at the right forefoot as detailed above. See procedure note for further detail. Reviewed, dictated and finalized at location A. LY ROOM CLERK IMPRESSION: 1. Fluoroscopy utilized during orthopedic procedure at the right forefoot as de tailed above. See procedure note for further detail.
--- OUTSIDE RECORDS SUMMARY | 2025-09-10 00:40 | XMS_ITS | Clinical Summary ---
[facility] Address [address] [place] [address] Phone Care Team Providers Care International Exchange Coordinator Name Role Phone Nadir Graham APRN, NETWORK FIELD ENGINEER Primary Care Provider Allergies Active Allergy Reactions Criticality Noted Date Comments Chocolate Anaphylaxis High 11/06/2021 Omar (Rigo Rinaldi) Allergy Skin Test Anaphylaxis,Hives,Swelling High 11/06/2021 Hydrocodone Hives,Hallucinations High 11/06/2021 Triticum Aestivum (Whole Wheat) Allergy Skin Test Swelling Medium 11/06/2021 Medications atorvastatin (LIPITOR) 10 MG Tablet Take 10 mg by mouth every morning. Active [place]-3 Fatty Acids (fish oil) 1200 MG Capsule Take 1,200 mg by mouth daily. STOP TAKING 3 DAYS BEFORE SURGERY Active Hjydkz-Scozk-Tk al Ac-Ca Fructo (Move Free [facility] Advance) Tablet Take by mouth every [...] Comments Blood Pressure 125/69 11/11/2021 9:55 AM SALES AND LEASING CONSULTANT Pulse 59 11/11/2021 9:55 AM SALES AND LEASING CONSULTANT Temperature 35.5 C (95.9 F) 11/11/2021 9:55 AM SALES AND LEASING CONSULTANT Respiratory Rate 16 11/11/2021 9:55 AM SALES AND LEASING CONSULTANT Oxygen Saturation 96% 11/11/2021 9:55 AM SALES AND LEASING CONSULTANT Inhaled Oxygen Concentration - - Weight 88.9 kg (196 lb) 11/11/2021 6:08 AM SALES AND LEASING CONSULTANT Height 167.6 cm (5' 6) 11/11/2021 6:08 AM SALES AND LEASING CONSULTANT Body Mass Index 31.64 11/11/2021 6:08 AM SALES AND LEASING CONSULTANT Plan of Treatment Health Maintenance Due Date Last Done Comments Hepatitis C Virus (HCV) Screening 1962 Varicella Immunization (1 of 2 - 13+ 2-dose series) 1975 Cologuard 2007 Colonoscopy 2007 Colorectal Cancer Screening 2007 Immunochemical Fecal Occult Blood 2007 Zoster Immunization (1 of 2) 2012 Pneumococcal Immunization (50+ years) (2 of 2 - PPSV23, PCV20, or PCV21) 07/18/2020 05/23/2020 Influenza Immunization (#1) 06/17/202507/17, 07/05/2020, 07/30/2019, [...] this topic Medical Devices Implanted Type Area Confectionery Maker Device Identifier Shelf Expiration Date Model / Serial / Lot Easyclip Staple [id number] - [id number] Implanted:Qty: 1 on 11/11/2021 by Magdi Salas, ARNOLDOM at [facility] IMPLANT Left: Toe [place] [employer] 08/16/2026 [id number] / [id number] / [id number] Screw Bone 3mm 20mm 5mm Asnis Ti Micro Rvrs Cut Flute Foot Hand Self Cut Viraj Clr Cd Loprfl Head Ns - [id number] Implanted:Qty: 1 on 11/11/2021 by Magdi Salas, DPEliana at [facility] IMPLANT Left: Toe SELVIN [id number] / [id number] / [id number] Insurance GRIJALVA RULE Care Teams International Exchange Coordinator Relationship Specialty Start Date End Date Nadir Graham, HOOP COILER, NETWORK FIELD ENGINEER [address] [place] [address] PCP - General Certified Nurse Practitioner 11/09/21
--- OUTSIDE RECORDS SUMMARY | 2025-09-10 00:40 | XMS_ITS | Continuity of Care Document ---
Author Organization [facility] [place] Address [address] [place] [address] [place] [address] Assessment Encounter Date Assessment Date Assessment LastModified by Organization Details LastModified Time 08/12/2025 08/12/2025 Annual gynecological exam performed. Patient will come back in a year unless there are new symptoms. [email or web address] Not available 08/12/2025 09:34:24 Plan of Treatment Reminders Order Date Submit Date Provider Last Modified By Organization Details Last Modified Time Details Appointments [facility] 2025 08:30A M ABHI LIPSCOMB NP Not available Not available Not available Lab None recorded. Referral None recorded. Procedures None recorded. Surgeries None recorded. Imaging MAMMO, screening , digital, bilateral 2024 025 [facility], [address], [facility] [address], [place], [address], 08/28/2025 04:04:41 Medication Orders None recorded. Patient TargetsNo targets recorded. Patient InstructionsNo instructions recorded. Reason for Referral None Reported. Problems Name Problem SNOMED Code Status Onset Date Resolution Date Notes Provider Name and Address Organization Details Recorded Time Screenin g for malignan t neoplasm of rectum Completed 201007/13/2021 Screening for malignant neoplasms of the rectum;Pr actice ID: [id number] Ana María carr, [facility] 10:29:52 Screenin g for malignan t neoplasm of cervix Completed 201007/13/2021 Pap Smear;Pra ctice ID: 0001 Ana María carr [facility] 10:29:51 Speciali zed medical examinat ion Completed 201307/13/2021 Gynecolog ical Examinati on;Record ed Elsewhere : No Locati on: [facility] Source: EHR Chron ic: N Practic e ID: 0001 Bill able Time: 10:00:00 AM Ana María Merr[facility] 10:30:00 Microsco pic hematuri a [id number] Completed 201307/13/2021 HEMATURIA MICROSCOP IC;Practi ce ID: [id number] Ana María [facility] 10:29:47 Adult health examinat ion Completed 201407/13/2021 Routine general medical examinati on at a health care facility; Practice ID: 0001 Ana María [facility] 10:29:40 Leukocyt osis [id number] Completed 201407/13/2021 LEUKOCYTO SIS NOS;Pract ice ID: 0001 Ana María [facility] 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 10:29:[address] Concept Completed 201707/13/2021 Well woman check w/ abnormal finding;R ecorded Elsewhere : No Locati on: [facility] So urce: EHR Chron ic: N Practic e ID: 0001 Bill able Time: 09:30:00 AM Ana María [facility] 10:29:[address] Concept Completed 201707/13/2021 Encntr for general adult medical exam w/o abnormal findings; Recorded Elsewhere : No Locati on: [facility] So urce: EHR Chron ic: N Practic e ID: 0001 Bill able Time: 09:30:00 AM Ana María [facility] [place] [facility] 10:29:[address] Concept Completed 201707/13/2021 Encounter for general adult medical exam w abnormal findings; Practice ID: [id number] Ana María [facility] 10:29:49 Micturit ion finding Completed 201707/13/2021 Urinary incontine nce;Recor ded Elsewhere : No Locati on: [facility] So urce: EHR Chron ic: N Practic e ID: [id number] Bill able Time: 09:30:00 AM Ana María [facility] 10:29:42 Evaluati on finding Completed 201807/13/2021 Hematuria , unspecifi ed;Record ed Elsewhere : No Locati on: [facility] So urce: EHR Chron ic: N Practic e ID: 0001 Bill able Time: 09:30:00 AM Ana María carr [facility] 10:29:44 Problem Notes None recorded. Procedures Surgical History Date Name Laterality Status Provider Name and Address Organization Details Recorded Time 07/25/20 25 operative procedure on foot completed [facility] 08/12/2025 09:41:33 10/16/20 24 Date of Last Mammogram completed [facility] 08/12/2025 09:43:36 08/08/20 24 Date of Last Pap Smear completed [facility] 08/12/2025 09:34:36 10/01/20 22 completed [facility] 08/08/2024 10:16:43 10/17/19 22 Date of [facility] 10:20:27 10/17/18 99 Partial Hysterectomy completed Ana María Merritt [facility] 07/13/2021 10:46:42 excision of bunion completed [facility] 07/11/2020 15:07:39 procedure on knee completed [facility] 08/08/2024 10:21:25 Colonoscopy completed [facility] 07/11/2020 15:07:57 Thyroid Surgery completed [facility] 07/11/2020 15:08:02 Imaging Results None recorded. Procedure Notes None recorded. Medical Equipment None Reported. Allergies Allergen ID Allergen Name Allergen Category Reaction Reaction Severity Criticality Documentation Date Start Date Code Code System Note Provider Name and Address Organization Details Recorded Time 50139 chocolate food Not available Not available Not available 08/12/2025 [facility] 5 09:34:16 09494 corn allergeni c extract food,medi cation swelling moderate Not available 08/12/2025 85734 7 RxNorm [facility] 5 09:34:16 Medications Name Sig Start Date Stop Date Status Note LastModified by Organization Details LastModified Time Nasal [place] (oxymetaz oline) 0.05 % spray 2 spray by intranas al route 2 times every day in each nostril in the morning and evening 08/12 completed Prescrib ashley Martins e: Yes Loca tion: Neil sauceda [facility] Eliana odify By: juan lamar DateTime : 09/20/20 [...] EVERY DAY AT BEDTIME NEEDED FOR PAIN 08/12 completed Not Available Not Available Not Available atorvasta tin 10 mg tablet TAKE 1 TABLET BY MOUTH DAILY active Not Available Not Available No t Available azithromy sanjay 250 mg tablet TK 2 TS PO ON DAY 1, THEN TK 1 T PO D FOR 4 DAYS 07/29 completed Not Available Not Available Not Available benzonata te 200 mg capsule TAKE 1 CAPSULE BY MOUTH THREE TIMES DAILY NEEDED FOR COUGH 08/12 completed Not Available Not Available Not Available famotidin e 40 mg tablet TAKE 1 TABLET BY MOUTH TWICE DAILY active Not Available Not Available No t Available prednison e 20 mg tablet TAKE 2 TABLETS BY MOUTH DAILY 08/12 completed Not Available Not Available Not Available phentermi ne 37.5 mg tablet TAKE 1 TABLET BY MOUTH DAILY 08/12 completed Not Available Not Available Not Available ciproflox acin 500 mg tablet TAKE 1 TABLET BY MOUTH TWICE DAILY 08/08 completed Not Available Not Available Not Available sulfameth oxazole 800 mg-trimet hoprim 160 mg tablet TAKE 1 TABLET BY MOUTH TWICE A DAY 07/16 completed Not Available Not Available Not Available tramadol 50 mg tablet TAKE 1 TO 2 TABLETS BY MOUTH EVERY 6 HOURS active Not Available Not Available No t Available triamcino lone acetonide 0.1 % topical cream APPLY TOPICALL Y TO THE AFFECTED AREA TWICE DAILY NEEDED FOR RASH 08/12 completed Not Available Not Available Not Available Macrobid 100 mg capsule take 1 capsule (100MG) by oral route every 12 hours with food 01/27 completed Prescrib ashley Martins e: No Locat ion: Neil sauceda [facility] odify By: [email or web address] Encount er DateTime : 01/19/20 14 10:07:01 [...] TAKE 1 TABLET BY MOUTH TWICE DAILY 08/12 completed Not Available Not Available Not Available levothyro xine 50 mcg tablet take 1 tablet by oral route every day 07/13 completed Prescrib ed Elsewher e: Yes Loca tion: [facility] odify By: joceline lamar DateTime : 02/21/20 19 09:30:00 AM Not Available Not Available Not Available cephalexi n 500 mg capsule TAKE 1 CAPSULE BY MOUTH TWICE DAILY 08/12 completed Not Available Not Available Not Available pantopraz ole 40 mg tablet,de layed release TAKE 1 TABLET BY MOUTH EVERY MORNING active Not Available Not Available No t Available monteluka st 10 mg tablet TAKE 1 TABLET BY MOUTH DAILY active Not Available Not Available No t Available methylpre dnisolone 4 mg tablets in a dose pack FOLLOW PACKAGE DIRECTIO NS 08/12 completed Not Available Not Available Not Available albuterol sulfate HFA 90 mcg/actua tion aerosol inhaler INHALE 2 PUFFS BY MOUTH EVERY 4 TO 6 HOURS NEEDED 08/12 completed Not Available Not Available Not Available niacin ER 125 mg capsule,e xtended release take 1 capsule by oral route 3 times every day with meals 07/13 completed Prescrib ed Elsewher e: Yes Loca tion: [facility] odify By: juan lamar DateTime : 09/20/20 11 10:00:00 AM Not Available Not Available Not Available doxycycli ne hyclate 100 mg tablet TAKE 1 TABLET BY MOUTH EVERY 12 HOURS 07/29 completed Not Available Not Available Not Available amoxicill in 875 mg-potass ium clavulana te 125 mg tablet TAKE 1 TABLET BY MOUTH EVERY 12 HOURS 07/29 completed Not Available Not Available Not Available Vitamins and Minerals tablet 08/12 completed Prescrib ed Elsewher e: Yes Loca tion: [facility] odify By: juan lamar DateTime : 09/20/20 11 10:00:00 AM Not Available Not Available Not Available Singulair 4 mg oral granules in packet 07/16 completed Prescrib ed Elsewher e: Yes Loca tion: [facility] M odify By: juan lamar DateTime : 09/20/20 [...] Available Not Available Zyrtec 10 mg capsule 08/12 completed Prescrib ed Elsewher e: Yes Loca tion: [facility] M odify By: juan lamar DateTime : 09/20/20 11 10:00:00 AM Not Available Not Available Not Available Nasal Allergy 07/13 completed Not Available Not Available Not Available fluticaso ne 113 mcg-salme terol 14 mcg/actua tion breath activated powdr INHALE 1 PUFF BY MOUTH EVERY 12 HOURS 08/12 completed Not Available Not Available Not Available Trelegy Ellipta 100 mcg-62.5 mcg-25 mcg powder for inhalatio n active Not Available Not Available Not Available Trelegy Ellipta 200 mcg-62.5 mcg-25 mcg powder for inhalatio n INHALE 1 PUFF BY MOUTH DAILY 08/12 completed Not Available Not Available Not Available Lagevrio 200 mg capsule (EUA) TAKE 4 CAPSULES BY MOUTH EVERY 12 HOURS FOR 5 DAYS 08/08 completed Not Available Not Available Not Available Vitals Date Recorded Body height Body mass index (BMI) Body weight Systolic And Diastolic Provider Name and Address Organization Details Last Updated DateTime 08/12/2025 165.1 cm 30.3 kg/m2 59794.81 g 120/77 mm[Hg] Elisa Lopez [facility] 08/12/2025 09:41:20 Social History Question Answer Notes LastModified by Organizat ion Details LastModified Time Tobacco Smoking Status Never Smoker Ana María carr [facility] 07/16/2022 12:51:11 Do You Have An [...] Or The Highest Degree You Have Received? [id number] Information not available 07/16/2022 Are There Any [...] anxious, or unable to sleep at night)? [id number] Information not available 07/13/2021 Family History Relationship Description Onset Age of this Age Resolved Age Notes LastModified by Organization Details LastModified Time Maternal Grandfather Diabetes mellitus [email or web address] Not available 2019 15:06:48 Maternal Grandfather Malignant neoplasm of bone [email or web address] Not available 2024 09:32:25 Maternal Grandmother Coronary arterioscler osis [email or web address] Not available 2024 09:32:25 Mother Coronary arterioscler osis [email or web address] Not available 2024 09:32:25 Mother Hypertensive disorder [email or web address] Not available 2019 15:07:21 Mother Malignant neoplasm of lung Not available 2020 10:46:08 Father Toxic emphysema [email or web address] Not available 2024 09:32:25 Father Chronic obstructive pulmonary disease [email or web address] Not available 2024 09:32:25 Medical History Condition Response History of abnormal pap Y Anemia Y Asthma Y Gynecological History Statement/Question Response Abnormal Pap N Date of Last Mammogram 10/16/2024 Date of LMP 10/17/1998 N On BCP's at Conception? N STIs/STDs N Was last menstrual period normal N HPV Vaccine N Duration of Flow (days) 5 Current Control Method Hysterectom y Age at First Child 28 Date of Last Colonoscopy 10/17/2021 Frequency of Cycle (Q days) 30 Sexually Active? Y Menses Monthly N Date of DEXA bone scan Age of first menstrual cycle 14 Date of Last Pap Smear 08/08/2024 Sexual Problems? N LMP Unknown Desired Control Method Hysterectom y 10/01/2022 N Obstetrics History GPAL:G 2 P 0 0 0 2 Type Value Living 2 Total 2 Past Encounters Encounter ID Performer Location Encounter Start Date Encounter Closed Date Diagnosis/Indication Diagnosis SNOMED-CT Code Diagnosis ICD10 Code Diagnosis IMO Codes Diagnosis Note [id number] ABHI LIPSCOMB NP [place] [address] [address] 08/12/2025 09:31:54 08/12/2025 10:05:56 Well woman health examination 564466354 Z01.419 737012 Annual gynecologi mickie exam performed. Patient will [...] any questions please call or email. mammogram- ordered; pt to schedule colon cancer screening - UTD (2021 - [facility]) DEXA scan- n/a Pap smear - UTD (2023 - [facility]), will repeat in 2026 per ASCCP guidelines laboratory evaluation - PCP STI testing - declined Screening mammography 24 178919 Z12.31 [id number] Health Concerns Section Related Observation LastModified by Organization Detai ls LastModified Time None Recorded Concern Status LastModified by Organization Details LastModified Time None Recorded Payers Encounter Date Sequence Insurance Name Policy Number Policy Munoz Covered Member ID Munoz Member ID Guarantor Name 08/12/2025 1 [place] [id number] Starr Wahl [id number] Starr Wahl Notes Date Note Type Note Provider Name and Address Organization Details Recorded Time 5 text/html 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 Patient presents for annual well woman exam. Patient denies concerns today. ABHI LIPSCOMB, JACOBY [address], [place], [address], [facility] 08/12/2025 10:02:44 OBGyn Episode No OBEpisode recorded.
--- OUTSIDE RECORDS SUMMARY | 2025-09-10 00:40 | XMS_ITS | Encounter Summary ---
Author Organization [facility] Address [address] [place] [address] Care Team Providers Care Activities Leader Name Role Phone Unavailable Primary Care Provider Unavailabl e Encounter Details Date Type Department Care Team (Late st Contact Info) Description 10/30/2024 Lab Requisition [facility] - DermPath Lab [address] [facility] [place] [address] Ivanna Klein MD [address] [facility] [address] [place] [address] Social History Tobacco Use Types Packs/Day Years Used Date Smoking Tobacco: Never Comments Unknown Sex and Gender Information Value Date Recorded Sex Assigned at Not on file Legal Sex Female 1:54 PM 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 Gender Identity Not on file Sexual Orientation Not on file documented as of this encounter Plan of Treatment Not on file documented as of this encounter Procedures Procedure Name Priority Date/Time Associated Diagnosis Comments DERMATOPATHOLOGY Routine 10/30/2024 11:2 2 AM 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 documented in this encounter Results * DERMATOPATHOLOGY (10/30/2024 11:22 AM 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) Case Report Dermatopathology Report Case: [id number] Authorizing Provider: Ivanna Klein MD Collected: 10/30/2024 11:22 AM Ordering Location: [facility] - Received: 10/31/2024 01:55 PM DermPath Lab Pathologist: Serenity Vinson MD Specimen: Skin, right ala 5 4:13 PM [facility] DERMATOPATHOLOGY LABORATORY Final Diagnosis Specimen A. SKIN, right ala: INTRADERMAL MELANOCYTIC NEVUS (D22.39) 5 4:13 PM [facility] DERMATOPATHOLOGY LABORATORY at 1613 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 Clinical History R/O Nevus vs FP vs BCC 4:13 PM [facility] DERMATOPATHOLOGY LABORATORY Gross Description Specimen A: Received is one formalin filled container labeled with the patient's name and designated right ala. The specimen consists of a shave biopsy measuring 2 pieces 3x3x1,2x2x1 mm. Jar 0. 4:13 PM [facility] DERMATOPATHOLOGY LABORATORY Microscopic Description Specimen A. SKIN, right ala: There are nests of cytologically bland melanocytes within the dermis that mature with depth. 4:13 PM [facility] DERMATOPATHOLOGY LABORATORY Disclaimer An external and internal positive and negative controls are appropriate for the histochemical, immunohistochemical and immunofluorescence stain(s) in this case (if any), except where stated explicitly. The performance characteristics of the stain(s) cited in this report were developed and its performance characteristic determined by the Dermatopathology Laboratory at [facility], directed by Dr. Shruti Schilling. These tests need not be, and therefore are not, approved by the [place] Food and Drug Administration. The tests are used for clinical purposes. Billing Codes Specimen Charges Stain Charges 49952 1 4:13 PM 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 DERMATOPATHOLOGY LABORATORY Embedded Images 4:13 PM [facility] DERMATOPATHOLOGY LABORATORY Pathology/Cytolo gy TISSUE SPECIMEN FROM SKIN / Unknown 10/30/2024 11:22 AM 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 10/31/2024 1:55 PM 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 us Ivanna Klein MD LAB - PATHOLOGY/CYTOLOGY ORD ERABLES Final Result DERMATOPATHOLOGY LABORATORY [facility] - Department of Dermatology [address] [place] [address], [facility] [phone] documented in this encounter Visit Diagnoses Not on filedocumented in this encounter
--- OUTSIDE RECORDS SUMMARY | 2025-09-10 00:40 | XMS_ITS | Clinical Summary ---
Author Organization [facility] Address [address] [place] [address] Care Team Providers Care Group Therapy Counselor Name Role Phone Unavailable Primary Care Provider Unavailabl e Source Comments [facility],non-owned Affiliates and Associated Physician Practices is amultiple site organization consisting of ambulatory clinics and hospital sitesin [place], [place], [place] and [place]. This disclosure is being madepursuant to the Care Everywhere program and may not contain all information available regarding this patient. 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 Gender Identity Not on file Sexual Orientation [...] DEPRESSION SCREENING 10/17/2024 COVID-19 VACCINE (1 - 2024-2 6 season) 2025 INFLUENZA VACCINE (#1) 2025 Respiratory [...] patient's age to complete this topic Insurance [facility] SELF PAY NO INSURANCE Member Subscriber Plan / Payer (Ef fective for All Dates) Name:Lamar Quintero Member ID:Not on file Relation to Subscriber:Not on file Name:LAMAR QUINTERO Subscriber ID:Not on file (Home) Address: [address] [place] [phone] Payer ID:Not on file Group ID:Not on file Type:Self Pay Address: [place], [place]
--- OUTSIDE RECORDS SUMMARY | 2025-09-10 00:40 | XMS_ITS | Encounter Summary ---
Author Organization [facility] Address [address] [place] [address] Care Team Providers Care Beverage Server Name Role Phone Unavailable Primary Care Provider Unavailabl e Encounter Details Date Type Department Care Team (Late st Contact Info) Description 09/22/2023 Lab Requisition 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 DermPath Lab Received: 09/23/2023 09:51 AM Pathologist: Frances Shay MD Specimen: Skin, left inner eyelid margin 3 1:19 PM [facility] DERMATOPATHOLOGY LABORATORY Final Diagnosis Specimen A. 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 The specimen consists of a shave biopsy measuring 2x2x1 mm. Jar 0. 1:19 PM [facility] DERMATOPATHOLOGY LABORATORY Microscopic Description Specimen A. SKIN, left inner eyelid margin: Within the dermis, there is a space lined by one to several layers of typical epithelial cells that resemble the lining of the normal sweat duct. Additional deeper sections were obtained and reviewed. 1:19 PM [facility] DERMATOPATHOLOGY LABORATORY Disclaimer An external and internal positive and negative controls are appropriate for the histochemical, immunohistochemical and immunofluorescence stain(s) in this case (if any), except where stated explicitly. The performance characteristics of the stain(s) cited in this report were developed and its performance characteristic determined by the Dermatopathology Laboratory at [facility], directed by Dr. Shruti Schilling. These tests need not be, and therefore are not, approved by the [place] Food and Drug Administration. The tests are used for clinical purposes. Billing Codes Specimen Charges Stain Charges 19334 1 3 1:19 PM [facility] DERMATOPATHOLOGY LABORATORY Embedded Images 3 1:19 PM [facility] DERMATOPATHOLOGY LABORATORY Pathology/Cytolo gy TISSUE SPECIMEN FROM SKIN / Unknown 09/22/2023 9:34 AM PLANTING MATERIAL REMOVER 09/23/2023 9:51 AM [facility] us Ivanna Klein MD LAB - PATHOLOGY/CYTOLOGY ORD ERABLES Final Result DERMATOPATHOLOGY LABORATORY [facility] - Department of Dermatology [address] [phone] documented in this encounter Visit Diagnoses Not on filedocumented in this encounter
--- OUTSIDE RECORDS SUMMARY | 2025-09-10 00:40 | XMS_ITS | Encounter Summary ---
Author Organization [facility] Address [address] [place] [id number] Phone Care Team Providers Care Obiee Lead Developer Name Role Phone Nadir Graham APRN, JAS Primary Care Provider Reason for Referral * Radiology Services (Routine) - Closed Specialty Diagnoses / Procedures Referred By Contac t Referred To Contact Radiology Diagnoses Pre-op testing Procedures EKG 12 LEAD Benigno Aceves APRN, CRNA #1 [place] [address] Phone: tel: fax: Referral ID Status Reason Start Date Expiration Date Visits Re quested Visits Authorized [id number] Closed 11/06/2021 1 1 OGRAPHER Encounter Details Date Type Department Care Team (Late st Contact Info) Description 11/06/[address] [facility] Preop/Pacu II [address] [place] [address] Benigno Aceves APRN, WRAPPER HANDS SPRAYER #[address] [place] [address] Pre-op testing (Primary Dx) Social History Tobacco [...] COVID-19? No / Unsure 11/09/2021 10:29 AM PANTOGRAPHER documented as of this encounter Plan of Treatment Not on file documented as of this encounter Results * EKG 12 LEAD (11/09/2021 11:00 AM PANTOGRAPHER) Ventricular Rate BPM EXTERNAL EKG Atrial Rate BPM EXTERNAL EKG P-R Interval 148 ms EXTERNAL EKG QRS Duration 98 ms EXTERNAL EKG Q-T Duration 404 ms EXTERNAL EKG QTC CALCULATION 430 ms EXTERNAL EKG P [place] 69 degrees EXTERNAL EKG R [place] -48 degrees EXTERNAL EKG T [place] 64 degrees EXTERNAL EKG 11/09/2021 11:0 0 AM PANTOGRAPHER Impressions EXTERNAL EKG - 11/10/2021 9:44 AM PANTOGRAPHER Sinus rhythm Left anterior fascicular block rSr'(V1) - probable normal variant Comparison Summary: No serial comparison made Summary: Borderline ECG Confirmed by Sangeetha Moreau [id number] on 11/10/2021 9:44:17 AM Narrative Procedure Note Deborah Vivas MD - 11/10/2021 IMPRESSION: Sinus rhythm Left anterior fascicular block rSr'(V1) - probable normal variant Comparison Summary: No serial comparison made Summary: Borderline ECG Confirmed by Sangeetha Moreau [id number] on 11/10/2021 9:44:17 AM us Benigno Clevelandatzke VITICULTURIST, WRAPPER HANDS SPRAYER IMG ECG ORDERABLES Final Result EXTERNAL EKG * SARS-COV-2 BY MOLECULAR (11/09/2021 10:43 AM PANTOGRAPHER) SARSCOV2 NOT DETECTED (Referen ce Range for this test is Not Detected ) [facility] THERMOFISHER FAST DX 11/10/2021 8:06 AM PANTOGRAPHER [facility] Comment:This test was perfor med by a RT-PCR method. Other NASAL STRUCTURE / Unknown Non-Phlebotomy Collection / Unknown 11/09/2021 10:43 AM PANTOGRAPHER 11/09/2021 11:09 AM PANTOGRAPHER Narrative [facility] - 11/10/2021 8:06 AM PANTOGRAPHER Authorized Fact Sheets about this test for providers and patients are available at: https://www.fda.gov/medical-devices/ecvhyielx-pgvkjjewpa-grduenm-devices/emergen -us e-authorizations Benigno Aceves APRN, CRNA MICROBIOLOGY - GEN ERAL ORDERABLES Final Result [facility] [address] [place] [address], * HEMOGLOBIN & HEMATOCRIT (H&H) (11/09/2021 10:43 AM PANTOGRAPHER) HEMOGLOBIN (HGB) 14.2 12.0 - 15.8 g/dL 11/09/2021 11:12 AM PANTOGRAPHER [facility] HEMATOCRIT (HCT) 43.0 36.0 - 47.0 % 11/09/2021 11:12 AM PANTOGRAPHER [facility] Blood Venipuncture / Unknown 11/09/2021 10:43 AM PANTOGRAPHER 11/09/2021 11:09 AM PANTOGRAPHER Benigno Aceves APRN, CRNA HEMATOLOGY ORDERAB LES Final Result [facility] [address] [place] [address] documented in this encounter Visit Diagnoses Diagnosis Pre-op testing- Primary Preoperative examination, unspecified Pre-op testing Preoperative examination, unspecified documented in this encounter Care Teams Obiee Lead Developer Relationship Specialty Start Date End Date Nadir Graham, VITICULTURIST, TESTING ANALYST [address] [place] [address] PCP - General Certified Nurse Practitioner 11/09/21 documented as of this encounter
--- OUTSIDE RECORDS SUMMARY | 2025-09-10 00:40 | XMS_ITS | Clinical Summary ---
Author Organization [facility] Address [address] [place] [address] Care Team Providers Care Corporate Real Estate Specialist Name Role Phone Nadir Graham NP Primary Care Provider [phone] Allergies Active Allergy Reactions Criticality Noted Date Comments Acetaminophen Chocolate Anaphylaxis High 11/06/2021 [place] Pollen Extract Anaphylaxis,Hives,Swelling High 11/06/2021 Hydrocodone Hallucinations,Hives High 11/06/2021 Hydrocodone Hcl Itching Low 05/28/2021 Other Swelling,Unknown Medium 07/01/2014 Medications magnesium oxide (MAG-OX) 415 mg (250 mg elemental) tablet 250 mg. 0 01/26/20 13 Active fluticasone (FLONASE) 50 mcg/actuation nasal spray spray 1 spray by intranasal route every day in each nostril 0 01/26/20 13 Active A09-xkhrblxkggxg calcium-B6 (FOLTX) 2-1.13-25 mg tablet 0 01/26/20 [...] MOUTH TWICE A DAY Active influenza quadrivalent [id number] (Flucelvax Quad ) 60 mcg (15 mcg [...] on file Legal Sex Female 5:11 PM ROLL WRAPPER Gender Identity Not on file Sexual Orientation Straight 08/28/2020 10 :49 PM ROLL WRAPPER Obstetrics History Para Term AB IAB SAB Ectopic Multiple Livin g Live Births 2 2 2 Date Outcome GA Total Labor Labor/2nd/3rd Weight Sex Type Anes PTL Kacie A1 A5 Name Clin Term Term Last Filed Vital Signs Vital Sign Reading Time Taken Comments Blood Pressure 110/70 12/01/2021 10:22 AM ROLL WRAPPER Pulse 83 12/01/2021 10:22 AM ROLL WRAPPER Temperature 36.2 C (97.1 F) 11/13/2020 9:35 AM ROLL WRAPPER Respiratory Rate - - Oxygen Saturation 96% 04/12/2013 9:33 AM CDT Inhaled Oxygen Concentration - - Weight 86.2 kg (190 lb) 12/01/2021 10:22 AM ROLL WRAPPER Height 168.9 cm (5' 6.5) 05/02/2023 9:09 AM CDT Body Mass Index 30.67 12/01/2021 10:22 AM ROLL WRAPPER Plan of Treatment Health Maintenance Due Date [...] Most Recently Relevant to Health Maintenance Insurance [facility] HMO/PPO Address: [facility] [address] [place] [address] CHOICE [place] Member Subscriber Plan / Payer (Ef fective 2022-Present) Name:WahlAllisonmagdalena Brasher Relation to Subscriber:Self Name:Starr Wahl Anshu Payer ID:[id number] (NAIC) Type:HEALTHCARE/EXCHANGE Address: [address] [place] [phone] CHOICE [place] Care Teams Corporate Real Estate Specialist Relationship Specialty Start Date End Date Nadir Graham NP PCP - General 07/23/20
[2025-09-10 06:10] VITALS: BP 112/67; PULSE 54; RESP 18; TEMP 36.4; O2SAT 98
[2025-09-10] MEDS: LACTATED RINGERS 1,000 ML 30 ML IV CONT ×2 (06:25→08:57)
--- NOTE | 2025-09-10 07:17 | PM.HPGS ---
History of Present Illness History of Present Illness Consent: Risks, benefits, and alternatives have been discussed and questions answered. Patient agrees to proceed with procedure. Chief complaint: hallux valgus, hammer toe right foot Narrative: Starr Wahl is a 65 year old female with pain hallux valgus, capsulitis, and hammer toe deformities. She has exhausted conservative treatment with minimal pain relief, now elects for surgical intervention Review of Systems Review of Systems: All systems reviewed & are unremarkable except as noted in HPI and below Musculoskeletal: Comments: Pedal pulses palpable 2/4, bilateral. Capillary refill time immediate to digits, bilateral Hallux abducto valgus deformity, hammer toe deformity digits 2and 3 PMFSH Past Medical History Medical History Left lower lobe pulmonary nodule monitored by pulmonology Hammer toes of both feet Shortness of breath Sinusitis BMI 29.0-29.9,adult Insomnia BMI 32.0-32.9,adult Breast cancer screening by mammogram normal mammogram 05/02/2023. Normal mammogram 10/15/2024. BMI 34.0-34.9,adult Elevated fasting glucose Encounter to establish care Hyperlipidemia Anemia Pain of left thumb PONV (postoperative nausea and vomiting) Hypothyroidism GERD (gastroesophageal reflux disease) Hyperlipidemia Arthritis of right knee Asthma Surgical History Surgical History History of right knee joint replacement (~08/03/22) History of left knee replacement (~2016) History of thyroid surgery (~2014) Right History of lung surgery (~1969) History of bunionectomy Right 2009 Left 2021 History of hysterectomy (~1998) Family History Family History Mother Lung cancer COPD (chronic obstructive pulmonary disease) Father Hypertension Grandparent Diabetes mellitus Son Asthma Other Diabetes mellitus Social History Social History Smoking status: Never smoker Additional smoking assessment comments: DENIES ANY FORM OFTOBACCO USE Alcohol intake: current Drinks per week: 1 Alcohol use details: Very Rare Substance use: never Substance use type: does not use Lack of Transportation: No Lack of Food: Never True Current Housing: I Have Housing Concerned About Future Housing: No Difficulty Paying Gas/Electric Bills: No Difficulty Paying for Meds: No Currently Unemployed: No Education: High School Diploma/GED Difficulty w/ Childcare or Family Care: No Living arrangements: with family Spiritual care concerns: No Meds Home Medications and Allergies Home Medications ?Medication ?Instructions ?Recorded ?Confirmed ?Type cetirizine 10 mg tablet (Zyrtec) 10 mg PO DAILY 02/02/22 09/10/25 History fluticasone propionate 50 1 spray intranasal DAILY 02/02/22 09/10/25 History mcg/actuation nasal spray,suspension (Allergy Relief (fluticasone)) inhalational spacing device (Space #1 ea 10/28/22 09/03/25 Rx Chamber) montelukast 10 mg tablet 10 mg PO DAILY #90 tabs 11/15/24 09/10/25 Rx trazodone 50 mg tablet 25 - 50 mg (0.5 - 1 x 50 mg) PO 03/21/25 09/03/25 Rx QHS PRN Pain #90 tabs atorvastatin 10 mg tablet 10 mg PO DAILY #90 tabs 05/15/25 09/10/25 Rx famotidine 40 mg tablet 40 mg PO BID #180 tabs 05/15/25 09/10/25 Rx fluticasone fur. 200 mcg-umeclid 1 inh inhalation DAILY 05/15/25 09/10/25 History 62.5 mcg-vilant 25 mcg inhalat.powder (Trelegy Ellipta) levothyroxine 100 mcg tablet 100 mcg PO DAILY #90 tabs 05/15/25 09/10/25 Rx pantoprazole 40 mg tablet,delayed 40 mg PO QAM #30 tabs 05/15/25 09/03/25 Rx release omega 5-iey-myc-fish oil 1,000 mg 1 cap PO DAILY 06/27/25 09/10/25 History (120 mg-180 mg) capsule (Fish Oil) Allergies Allergy/AdvReac Type Severity Reaction Status Date / Time hydrocodone Allergy Severe hives Verified 09/10/25 06:16 chocolate flavor Allergy Unknown THROAT Verified 09/10/25 06:16 SWELLING corn Allergy Unknown ABD Verified 09/10/25 06:16 BLOATING grass pollen Allergy Unknown Hives Verified 09/10/25 06:16 mold Allergy Unknown Unknown Verified 09/10/25 06:16 pollen extracts Allergy Unknown unknown Verified 09/10/25 06:16 wheat Allergy Unknown unknown Verified 09/10/25 06:16 Vital Signs Vital Signs - 24 hr 09/10/25 06:10 Temperature 36.4 C Pulse Rate 54 L Respiratory Rate 18 Blood Pressure 112/67 Pulse Oximetry 98 Oxygen Delivery Room Air Exam Extrem: Other: Pedal pulses palpable 2/4, bilateral. Capillary refill time immediate to digits, bilateral Hallux abducto valgus deformity, hammer toe deformity digits 2and 3 Assessment and Plan Assessment and plan (1) Bunion, right foot: Code(s): M21.611 - Bunion of right foot Status: Acute Plan Right foot nicky osteotomy, proximal interphalangeal joint arthroplasty digits 2 an 3, benita osteotomy 2nd metatarsal
--- NOTE | 2025-09-10 07:17 | WPDANESEPPF ---
Anes - Initial Pre Proc Eval Procedure: Operation Date: 09/10/25 07:30 Proposed Procedures p Alin Osteotomy, Penny Second Metatarsal Osteotomy, Second Proximal Interphalangeal Joint, Possible Third Digit Hammer Toe all Right Foot - Araceli Leon DPM Date/Time: 09/10/25 07:17 Surgeon: Araceli Leon DPM Pre Op Diagnosis: hallux valgus, hammer toe right foot Patient Data Age: 65 Gender: F Height: 1.68 m Weight: 85.7 kg Last Vital Signs Temp 36.4 C 09/10/25 06:10 Pulse 54 L 09/10/25 06:10 Resp 18 09/10/25 06:10 BP 112/67 09/10/25 06:10 Pulse Ox 98 09/10/25 06:10 O2 Del Method Room Air 09/10/25 06:10 Allergies Allergy/AdvReac Type Severity Reaction Status Date / Time hydrocodone Allergy Severe hives Verified 09/10/25 06:16 chocolate flavor Allergy Unknown THROAT Verified 09/10/25 06:16 SWELLING corn Allergy Unknown ABD Verified 09/10/25 06:16 BLOATING grass pollen Allergy Unknown Hives Verified 09/10/25 06:16 mold Allergy Unknown Unknown Verified 09/10/25 06:16 pollen extracts Allergy Unknown unknown Verified 09/10/25 06:16 wheat Allergy Unknown unknown Verified 09/10/25 06:16 Home Medications ?Medication ?Instructions ?Recorded ?Confirmed ?Type cetirizine 10 mg tablet (Zyrtec) 10 mg PO DAILY 02/02/22 09/10/25 History fluticasone propionate 50 1 spray intranasal DAILY 02/02/22 09/10/25 History mcg/actuation nasal spray,suspension (Allergy Relief (fluticasone)) inhalational spacing device (Space #1 ea 10/28/22 09/03/25 Rx Chamber) montelukast 10 mg tablet 10 mg PO DAILY #90 tabs 11/15/24 09/10/25 Rx trazodone 50 mg tablet 25 - 50 mg (0.5 - 1 x 50 mg) PO 03/21/25 09/03/25 Rx QHS PRN Pain #90 tabs atorvastatin 10 mg tablet 10 mg PO DAILY #90 tabs 05/15/25 09/10/25 Rx famotidine 40 mg tablet 40 mg PO BID #180 tabs 05/15/25 09/10/25 Rx fluticasone fur. 200 mcg-umeclid 1 inh inhalation DAILY 05/15/25 09/10/25 History 62.5 mcg-vilant 25 mcg inhalat.powder (Trelegy Ellipta) levothyroxine 100 mcg tablet 100 mcg PO DAILY #90 tabs 05/15/25 09/10/25 Rx pantoprazole 40 mg tablet,delayed 40 mg PO QAM #30 tabs 05/15/25 09/03/25 Rx release omega 4-hrh-vuy-fish oil 1,000 mg 1 cap PO DAILY 06/27/25 09/10/25 History (120 mg-180 mg) capsule (Fish Oil) Patient hx anesthesia problems: none Family hx anesthesia problems: none Results Review: All pre-operative results and documents have been reviewed as part of the pre-operative evaluation. [facility] Past Medical History Medical History Left lower lobe pulmonary nodule monitored by pulmonology Hammer toes of both feet Shortness of breath Sinusitis BMI 29.0-29.9,adult Insomnia BMI 32.0-32.9,adult Breast cancer screening by mammogram normal mammogram 05/02/2023. Normal mammogram 10/15/2024. BMI 34.0-34.9,adult Elevated fasting glucose Encounter to establish care Hyperlipidemia Anemia Pain of left thumb PONV (postoperative nausea and vomiting) Hypothyroidism GERD (gastroesophageal reflux disease) Hyperlipidemia Arthritis of right knee Asthma Surgical History Surgical History History of right knee joint replacement (~08/03/22) History of left knee replacement (~2016) History of thyroid surgery (~2014) Right History of lung surgery (~1969) History of bunionectomy Right 2009 Left 2021 History of hysterectomy (~1998) Family History Family History Mother Lung cancer COPD (chronic obstructive pulmonary disease) Father Hypertension Grandparent Diabetes mellitus Son Asthma Other Diabetes mellitus Social History Social History Smoking status: Never smoker Additional smoking assessment comments: DENIES ANY FORM OFTOBACCO USE Alcohol intake: current Drinks per week: 1 Alcohol use details: Very Rare Substance use: never Substance use type: does not use Lack of Transportation: No Lack of Food: Never True Current Housing: I Have Housing Concerned About Future Housing: No Difficulty Paying Gas/Electric Bills: No Difficulty Paying for Meds: No Currently Unemployed: No Education: High School Diploma/GED Difficulty w/ Childcare or Family Care: No Living arrangements: with family Spiritual care concerns: No Anes - Eval Final PreProcedure Day of Procedure 09/10/25 07:17 Patient weight: overweight Heart: regular rate and rhythm Lungs: decreased breath sounds Airway: Mallampati scale class II Neurological: alert and oriented Last oral intake: >/= 8 hours ASA classification: III Emergent: no Anesthetic plan: proceed Anesthesia type and monitoring: general LMA and standard monitoring Results Review: All pre-operative results and documents have been reviewed as part of the pre-operative evaluation. Informed Consent: The patient's anesthetic plan and its attendant risks and benefits were discussed with the patient/family/POA. Questions were solicited and answers provided to the satisfaction of the patient/family/POA.
--- NOTE | 2025-09-10 07:20 | WPDHPUPDATE1 ---
History and Physical Update Update Date/Time: 09/10/25 07:20 History and Physical has been reviewed, including an updated exam of the patient. There are NO changes in the patient's condition. Risks, benefits, and alternatives have been discussed and questions answered. Patient agrees to proceed with procedure.
[2025-09-10] MEDS: SCOPOLAMINE 1 MG PATCH 1 PATCH TRANSDERM (07:21)
[2025-09-10] MEDS: ceFAZolin 2 GM in SODIUM CHLORIDE 0.9% IV 50 ML 100 ML IVPB (07:30)
[2025-09-10] MEDS: BUPivacaine HCL 0.5% 10 ML AMP INFILTRATE (08:04)
[2025-09-10] MEDS: LIDOCAINE 1% LOCAL INJ 10 ML VIAL INFILTRATE (08:04)
[2025-09-10 08:57] VITALS: BP 123/62; PULSE 60; RESP 16; O2SAT 99
--- NOTE | 2025-09-10 08:57 | PM.OP ---
Procedure Note - Brief Procedure Note - Brief Date of procedure: 09/10/25 hallux valgus, hammer toe right foot hammer toe deformity digits 2 and 3, right foot capsulitis 2nd metatarsophalangeal joint, right foot Procedure performed: Alin osteotomy, right foot Penny osteotomy 2nd metatarsal, right foot Proximal interphalangeal joint arthroplasty with k-wire fixation 2nd digit, right foot Proximal interphalangeal joint arthroplasty 3rd digit, right foot Surgeon: Araceli Leon DPM Findings: See operative report Description of procedure: See operative report Estimated blood loss (mL): 3 Complications: None Condition: Stable Disposition: Same day
[2025-09-10 09:20] VITALS: BP 128/63; PULSE 53; RESP 16
[2025-09-10] MEDS: oxyCODONE HCL (*CRX) 5 MG TAB IR PO (09:32)
[2025-09-10 09:50] VITALS: BP 117/61; PULSE 66; RESP 16
[2025-09-10 10:15] VITALS: BP 115/63; PULSE 71; RESP 16
--- NOTE | 2025-09-10 17:32 | P.OP_ITS ---
Procedure Note - Detailed Date of Procedure 09/10/25 Pre-op Diagnosis hallux valgus, hammer toe right foot Capsulitis 2nd metatarsophalangeal joint, right foot Hammer toe deformity 2nd and 3rd digits, right foot Post-op Diagnosis Same Procedure Performed 1) Right foot Alin osteotomy 2) Right foot 2nd metatarsal benita osteotomy 3) Right foot 2nd digit proximal phalangeal joint arthroplasty with k-wire fixation 4) Right foot 3rd digit proximal phalangeal joint arthroplasty Surgeon Araceli Leon DPM Anesthesia General Indications The patient is a 65 year-old female with the above diagnoses.? The patient has exhausted conservative treatment at this time and now requests surgical intervention.? The patient signed the consent after careful explanation of risks, benefits, complication and alternatives for surgical procedure.? No guarantees were given nor implied. NPO status was confirmed prior to taking pt to the OR. Findings The patient was brought to the operating room and placed on the operating room table in supine position.? The patient received a total of 10 mL of a 1:1 mix 1.0% Lidocaine plain & 0.5% Marcaine plain in local block fashion to the right foot.? Once local anesthesia was achieved, the right foot was then prepped and draped in usual sterile manner and procedure began. A well padded right ankle tourniquet was placed and set to 250 mmHg. Description of Procedure 1) Right foot Alin osteotomy Attention was directed to the dorsum of the right foot where a linear incision was made overlying the 1st metatarsophalangeal joint (MPJ). The incision was deepened through subcutaneous tissue with care being taken to identify and retract all vital neurovascular structures. All bleeders were cauterized and ligated as necessary. At this time, a linear capsulotomy was made to the 1st MPJ and ligamentous structures were dissected off the base of the proximal phalanx. A small wedge of the redundant capsular tissue was resected to allow for soft tissue correction at the end of the procedure. Using a sagittal saw, an osteotomy was made with the base medially and the apex laterally in the distal proximal phalanx of the hallux with care to keep the lateral hinge of bone intact. Next, an Og5Quutq 8 mm staple was inserted with excellent compression of the osteotomy site noted. Using fluoroscopy, correction of the deformity & proper hardware placement were noted to be excellent. The surgical site was irrigated using normal saline. The capsular tissue and subcutaneous was re- approximated using 3-0 Vicryl. The skin was re-approximated using 4-0 Nylon. 2) Right foot 2nd metatarsal benita osteotomy Attention was directed to the dorsum of the right foot where a linear incision was made overlying the 2nd metatarsophalangeal joint (MPJ). The incision was deepened through subcutaneous tissue with care being taken to identify and retract all vital neurovascular structures. All bleeders were cauterized and ligated as necessary. At this time, a linear capsulotomy was made to the 2nd MPJ and ligamentous structures were dissected off the base of the proximal phalanx. At this time, the plantar plate was inspected and noted to be intact with no tears. The cartilage at head of the metatarsal was intact. Next, using a sagittal saw, an osteotomy was made just proximal to the articular cartilage of the 2nd metatarsal head and angle distal dorsal to proximal plantar through and through. The head of the metatarsal was noted to fall immediately into corrected position, the osteotomy was then fixated with a 2.7 mm 14 mm snap off screw. Using fluoroscopy, correction of the deformity & proper hardware placement were noted to be excellent. 3) Right foot 2nd digit proximal phalangeal joint arthroplasty with k-wire fixation Attention was directed to the dorsal aspect of the right foot 2nd digit where at the plantar aspect, a hyperkeratotic lesion was noted and a rigid hammer toe deformity was noted. The incision from the previous incision was extended to the middle phalanx using a #15 blade. The incision was deepened through subcutaneous tissue with care being taken to identify and retract all vital neurovascular structures. All bleeders were cauterized and ligated as necessary. At this time, a transverse tenotomy and capsulotomy was performed to the proximal int erphalangeal joint (PIPJ). The head of the proximal phalanx was then freed of its capsular and ligamentous attachments. Next utilizing an oscillating saw, the head of the proximal phalanx was resected and passed from the operative site. Then, the base of the middle phalanx was resected using an oscillating saw and passed from the operative field.? Next, while simulating weight bearing, the hammertoe deformity correction was noted to be excellent and the 2nd digit more rectus in position. Next, a 0.054 in K-wire was inserted from the middle phalanx out of the toe and then retrograded back into the proximal phalanx. The wound was then flushed with copious amount of sterile normal saline solution. The extensor tendon was re-approximated using 4-0 Vicryl. The subcutaneous tissue was re-approximated using 4-0 Monocryl. The skin was re-approximated using 4-0 Nylon. 4) Right foot 3rd digit proximal phalangeal joint arthroplasty Attention was directed to the dorsal aspect of the right foot 3rd digit where at the plantar aspect, a hyperkeratotic lesion was noted and a rigid hammer toe deformity was noted. The incision from the previous incision was extended to the middle phalanx using a #15 blade. The incision was deepened through subcutaneous tissue with care being taken to identify and retract all vital neurovascular structures. All bleeders were cauterized and ligated as necessary. At this time, a transverse tenotomy and capsulotomy was performed to the proximal interphalangeal joint (PIPJ). The head of the proximal phalanx was then freed of its capsular and ligamentous attachments. Next utilizing an oscillating saw, the head of the proximal phalanx was resected and passed from the operative site. Then, the base of the middle phalanx was resected using an oscillating saw and passed from the operative field.? Next, while simulating weight bearing, the hammertoe deformity correction was noted to be excellent and the 3rd digit more rectus in position. The wound was then flushed with copious amount of sterile normal saline solution. The extensor tendon was re-approximated using 4-0 Vicryl. The skin was re-approximated using 4-0 Nylon. Final post operative x-rays were taken to ensure reduction of the deformities and excellent placement of hardware. The right ankle tourniquet was released with immediate vascular return noted to the digits. Post-operative dressings included adaptic, 4x4 gauze, kerlix, and coban. Post-Operative Condition:? The patient tolerated the anesthesia and procedure and proceeded to the recovery room with vital signs stable and neurovascular status intact to the right foot. The patient will follow up with me in office on an outpatient basis. Implants [id number] 8 mm staple [id number] 2.7 mm snap off screw [id number] 5.4 k-wire Estimated Blood Loss 3 Complications None Condition Stable Disposition Same day
== END 2025-09-10 10:26 | disposition home or self-care (01) ==
PROVIDERS: PCP Nurse Practitioner Family; Visit Provider Podiatrist Foot & Ankle Surgery
PROC: (CPT 28750; principal; 2025-09-10 07:30)
DX: M20.11 Hallux valgus (acquired), right foot (principal); M20.41 Other hammer toe(s) (acquired), right foot; M77.41 Metatarsalgia, right foot
CPT/HCPCS: 28299; 28308; 28285 ×2; 99199; J0690; A9270; J1100; J2003; J2250; J2405; J2704; J7120